=== PATIENT | female | born 1950 | race Caucasian/White ===

== ENCOUNTER → 2017-08-24 11:50 | Outpatient (CLI) | payer MEDICARE, MEDICAID, SELFPAY ==
--- NOTE | 2017-08-24 11:56 | RAD_ITS ---
STUDY: X-RAY - PELVIS AND RIGHT HIP REASON FOR EXAM: Female, 66 years old. Right hip pain. TECHNIQUE: Radiological exam, hip, unilateral, with pelvis when performed; 2 or 3 views. COMPARISON: None. FINDINGS: There is a non-specific bowel gas pattern. 2 round small calcifications are seen in the right mid abdomen. These may represent a calcified mesenteric lymph nodes. Normal bilateral iliac wings, sacroiliac joints and visualized sacrum. Normal bilateral superior and inferior pubic rami. Normal pubic symphysis. Normal bilateral ischial tuberosities. Normal visualized femoral head. Normal acetabulum. Normal hip joint. RAD/Hip 2-3 Views with Pelvis IMPRESSION: Normal x-ray examination of the pelvis and hip. Electronically Signed: Amor Luevano MD at 15:59 EST Tel [phone], Service support ,
== END ==
PROVIDERS: Family Provider Family Medicine; PCP Family Medicine; Visit Provider Anesthesiology Pain Medicine
DX: M25.559 Pain in unspecified hip (principal)
CPT/HCPCS: 73502

== ENCOUNTER → 2017-10-03 14:19 | Outpatient (CLI) | payer MEDICARE, MEDICAID, SELFPAY ==
[2017-10-03 16:41] LABS: ALB/GLOB Ratio 0.9 RATIO (0.9-2.4); AST(SGOT) 35 U/L (15-37); Alanine Aminotransfer ALT/SGPT 32 U/L (13-56); Albumin, Serum 3.5 g/dL (3.2-5.0); Alkaline Phosphatase 133 U/L (45-117); Anion Gap 8 (5-15); BUN 10 mg/dL (7-18); BUN/Creat Ratio 10.7 RATIO (10-20); Calcium,Total 9.3 mg/dL (8.5-10.1); Chloride 106 mmol/L (98-107); Cholesterol 226 mg/dL (200); Creatinine, Serum 0.93 mg/dL (0.55-1.02); EST Glomerular Filtration Rate 63 mL/min (>60); Est Glom Filt Rate - Afr Amer 77 mL/min (>60); Glucose 89 mg/dL (74-106); High Density Lipoprotein 44 mg/dL; Potassium 4.3 mmol/L (3.5-5.1); Protein, Total 7.5 g/dL (6.4-8.2); Sodium Level 142 mmol/L (136-145); Thyroid Stim Hormone (TSH) 0.69 uIU/mL (0.358-3.74); Triglycerides 178 mg/dL; Very Low Density Lipoprotein 36 mg/dL (5-40)
== END ==
PROVIDERS: Family Provider Family Medicine; PCP Family Medicine; Visit Provider Family Medicine
DX: E03.9 Hypothyroidism, unspecified (principal); E11.9 Type 2 diabetes mellitus without complications; R79.89 Other specified abnormal findings of blood chemistry
CPT/HCPCS: 36415; 80053; 80061; 84443

== ENCOUNTER → 2017-10-31 07:02 | Outpatient (CLI) | payer MEDICARE, MEDICAID, SELFPAY ==
--- NOTE | 2017-10-31 07:09 | MRI_ITS ---
STUDY: MRI RIGHT HIP REASON FOR EXAM: Female, 66 years old. Right-sided hip pain for 3 months. TECHNIQUE: Standardized fat and water weighted pulse sequences were obtained in all 3 orthogonal planes. COMPARISON: None. FINDINGS: There is mild articular narrowing of the hip joint, with less than 50% loss of the hyaline cartilage. There is lateral osteoarthritic spurring of the acetabular rim. There is abnormal signal within the right acetabulum. Normal labrum. There is a confluent abnormal T2 hyperintensity within the right femoral head that may be the result of bone contusion or acute inflammation. There are multifocal areas of abnormal signal in the right femoral neck and proximal right femur. These focal areas of abnormal signal range in size from 3 mm to 15 mm in size. These have abnormal T2 hyperintensity and abnormally decreased T1 signal. There is a small hip effusion. There is a well-circumscribed area of abnormal signal in the subarticular aspect of the superior right femoral head that suggests either sequela of an erosion or avascular necrosis. Normal gluteus minimus, medius and iliopsoas tendons and distal insertions. There is no trochanteric, iliopsoas or iliopectineal bursitis. Normal superior and inferior pubic rami. Normal pubic symphysis. Normal ischial tuberosity. Normal origin of the hamstring tendons. Normal visualized iliac wing, sacroiliac joint, and sacral ala. There are mild degenerative changes of the left hip. There is a right-sided abdominal ovarian cyst measuring 3.3 cm in greatest dimension. The uterus has a grossly normal appearance. MRI/Lower Ext Joint Only (Routine) IMPRESSION: Multifocal areas of abnormal signal within the right acetabulum and femoral head. Differential considerations include sequela of avascular necrosis of the femoral head, bone contusions of the acetabulum and femur, as well as sequela of chronic osteomyelitis. Electronically Signed: Abril Pichardo MD at 8:50 EDT , Service support ,
== END ==
PROVIDERS: Family Provider Family Medicine; PCP Family Medicine; Visit Provider Family Medicine
DX: M25.551 Pain in right hip (principal)
CPT/HCPCS: 73721

== ENCOUNTER → 2017-11-01 16:32 | Outpatient (CLI) | payer MEDICARE, MEDICAID, SELFPAY ==
[2017-11-01 17:52] LABS: Absolute Lymphocyte Count 3.86 X10^3/ul (0.83-4.51); Absolute Neutrophil Count 6.1 X10^3/uL (2.0-7.7); Basophil# 0.02 X10^3/uL; Basophil% 0.2 % (0-1); Eosinophil# 0.09 X10^3/uL; Eosinophils% 0.8 % (0-5); Hemoglobin 12.2 g/dl (12.0-15.0); Lymphocyte # 3.86 X10^3/ul (4.0); Lymphocyte % 35.6 % (19-41); Mean Corp Hgb Conc 31.3 g/gl (32-36); Mean Corpuscular Hgb 28.2 pg (27.0-32.0); Mean Corpuscular Volume 90.1 fL (81-99); Mean Platelet Vol. 11.1 fl (6.2-12.0); Monocyte# 0.74 X10^3/uL; Monocyte% 6.8 % (0-10); Neutrophil % 56.3 % (47-70); Platelet Count 247 K/mm3 (150-450); RBC Distribution Width CV 15.8 % (11.6-14.6); RBC Distribution Width SD 51.9 fl (35.1-43.9); Red Blood Count 4.33 M/mm3 (4.2-5.4); White Blood Count 10.8 K/mm3 (4.4-11.0)
[2017-11-01 18:00] LABS: POSITIVE COUNT NO; POSITIVE DIFFERENTIAL NO; POSITIVE MORPHOLOGY NO
[2017-11-01 18:04] LABS: CRP 5.96 mg/L (0.0-3.0)
[2017-11-01 18:17] LABS: Erythrocyte Sedimentation Rate 28 mm/hr (0-30)
== END ==
PROVIDERS: Family Provider Family Medicine; PCP Family Medicine; Visit Provider Family Medicine
DX: M25.551 Pain in right hip (principal)
CPT/HCPCS: 36415; 85025; 85652; 86140

== ENCOUNTER 2017-11-27 05:19 | Inpatient (IN) | payer MEDICARE, MEDICAID, SELFPAY ==
--- NOTE | 2017-11-14 12:45 | EKG12_ITS ---
Test Reason : Blood Pressure : / mmHG Vent. Rate : 087 BPM Atrial Rate : 087 BPM P-R Int : 156 ms QRS Dur : 082 ms QT Int : 358 ms P-R-T Axes : 038 015 027 degrees QTc Int : 430 ms Normal sinus rhythm Minimal voltage criteria for LVH, may be normal variant Borderline ECG Confirmed by TUCKER JAUREGUI, ISAC ([id number]), fan mail editor PARKER DRAPER ([id number]) on 11/15/2017 2:00:32 PM Referred By: Damien Clarke Confirmed By:ISAC CEBALLOS MD
[2017-11-14 13:18] VITALS: BP 151/99; PULSE 92; RESP 18; TEMP 36.4; O2SAT 96; BMI 34.2
[2017-11-14 14:18] LABS: Prothrombin Time (Protime)PT. 13.1 SECONDS (11.7-14.9)
[2017-11-14 14:19] LABS: Partial Thromboplast Time 28.9 Seconds (24.1-36.2)
[2017-11-14 14:23] LABS: Hemoglobin A1c 6.2 % (4.2-6.3)
[2017-11-14 14:33] LABS: AST(SGOT) 28 U/L (15-37); Alanine Aminotransfer ALT/SGPT 27 U/L (13-56); Albumin, Serum 3.6 g/dL (3.2-5.0); Alkaline Phosphatase 123 U/L (45-117); Globulin 3.8 g/dL (2.2-4.2); Protein, Total 7.4 g/dL (6.4-8.2)
--- NOTE | 2017-11-24 10:06 | CASEMGMT ---
RN SMITH Preop Call. Introduced role of CM via phone. Pt scheduled for RTHR 11/27/17. DC planning needs assessment completed. DME available: walker, cane DME needs: sock don device Therapy on dc: [facility] Transportation: friend/family, hospital van when able to tolerate activity. RN CM will f/u with pt after surgery and will assist with any dc needs. Florentino NEVILLE RN ACM
[2017-11-27] VITALS (15 sets, daily range): BP systolic 102–156; BP diastolic 54–101; PULSE 75–102; RESP 16–18; TEMP 36.1–37; O2SAT 95–100; BMI 34.2
[2017-11-27] MEDS: Acetaminophen 500 MG Tablet 1000 MG PO ×3 (06:03→21:49)
[2017-11-27] MEDS: Lactated Ringers 1,000 ML 999 ML IV (06:30)
[2017-11-27] MEDS: Cefazolin 2 GM in 0.9% Normal Saline 100 ML IV (07:17)
[2017-11-27 07:46] LABS: Bedside Glucose 114 mg/dL (70-110)
--- NOTE | 2017-11-27 08:29 | PCM.OPRPT ---
Report of Operation Date of Procedure: 11/27/17 Pre-Operative Diagnosis: Severe end-stage osteoarthritis right hip Post-Operative Diagnosis: Severe end-stage osteoarthritis right hip Surgery/Procedure Performed:: Total hip arthroplasty right Description of Surgical Findings:: Eburnation of bone, periarticular osteophytes consistent with osteoarthritis steel buffer: Magdy Burnett Type of Anesthesia:: Spinal Anesthesiologist: Brian Lau Special Medications: txa Estimated Blood Loss (mL): 150 Fluids Replaced: See anesthesia report Description of Procedure: Implants: Nabeel Accolade 2 size 3 132?, 50 mm MDM cup with the appropriate size modular components Surgical indications: Patient has severe end-stage osteoarthritic changes in the right hip. They have failed conservative measures including activity modification, anti-inflammatories, use of assistive devices. This to the point where the pain affects their ability to enjoy life and complete activities of daily living without discomfort. Patient has elected to undergo the above procedure Procedure description: The patient was greeted in the preoperative area the right hip was marked with surgical marker preoperative antibiotics administered. The patient was then taken to or suite in stable condition. Preoperative tranexamic acid was also utilized. Once the patient was placed in the supine position on the operating room table and once adequate anesthesia was obtained they were then placed in the lateral decubitus position with the surgical hip facing the field. All bony prominences were well-padded. A commercial hip position was utilized. The appropriate extremity was then prepped and draped in usual sterile fashion. Ioban was placed on the skin. Surgical timeout was performed and surgery was commenced. Standard anterolateral approach to the hip was then performed incision was planned and carried out with a #10 blade. Dissection was then carried length of the incision to the IT band which was split proximally and distally. A Charnley retractor was then placed for soft tissue retraction exposing the gluteus medius. The hip was then approached through a transgluteal approach and dislocated through an anterior capsulectomy. Severe eburnation of bone was noted periarticular osteophytes were identified consistent with severe end-stage osteoarthritis. A femoral osteotomy was then created approximately 1 fingerbreadth above the lesser trochanter. This was measured and placed on the back table. Once this was complete acetabular retractors were placed anteriorly and posteriorly and a 4 mm Steinmann pin was placed anterior superior aspect of the acetabulum for soft tissue retention. Labrum was then removed from the acetabulum exposing the entire cup of the acetabulum. Sequential reaming was then commenced and the acetabulum was medialized and sequentially widened in order to accommodate appropriate size cup. The acetabular cup was then impacted into position to the appropriate depth referencing approximately 30? inversion 45? of inclination. Excellent purchase was obtained. 2 screws were placed in the cup. MDM metal modular liner was then placed in the locking mechanism of the acetabulum, locking mechanism was engaged and confirmed to be locked. Attention was then turned to the femoral preparation. The hip was placed in the 90/90 position and a lateralizing box osteotome was utilized. Femoral starting awl was used followed by sequential broaching to the appropriate size. Excellent purchase was obtained with the stem no stem subsidence and excellent rotational stability was confirmed. A calcar reamer was then used in the trial head neck was placed on the broach. The hip was then located and taken through full range of motion flexion internal and external rotation as well as extension. Excellent stability was noted no impingement was identified of the components and leg lengths appear to be appropriate. The hip was at this point dislocated and the trial femoral components were removed. The final femoral stem was then implanted and impacted to the appropriate depth. Again excellent purchase was obtained no stem subsidence or rotational instability was noted. The hip was once again trialed and confirmation of leg length and stability was performed. Soft tissue tension also appeared to be appropriate. At this point the hip was redislocated and the trunnion was cleaned and dried meticulously in the appropriate size femoral head was placed on the clean dry trunnion using a 12/14 Proctor taper. The hip was once again relocated and again taken through full range of motion. I did inject a cocktail of postoperative pain medication in the deep and superficial tissues. A quick Betadine bath was performed followed by copious irrigation. Anatomic closure of the gluteus medius and minimus was performed with #1 Vicryl [id number] type fashion followed by closure of the IT band with #1 Vicryl 0 Vicryl was utilized in subcutaneous tissue and surgical carol were placed in the skin. A well-padded nonadherent dressing was applied. Patient was taken to PACU in stable condition. No complications were identified. Will follow standard postop protocol for total hip arthroplasty. Patient must use assistive device for ambulation for approximately 6 weeks of the gluteal musculature heals. Physician assistant public defender was integral in all portions of this procedure. They assisted with positioning the patient, draping the extremity, holding retractors, closing the wound, and applying the dressing. This was all done under my direct supervision. The physician assistant public defender was essential for a successful, efficient surgery. - Complications None known - Admit VTE Documentation VTE Present on Admission: Yes VTE Mechan Device Prophylaxis: Thigh High LAWANDA Hose VTE Pharm Prophylaxis ordered?: Yes
--- NOTE | 2017-11-27 08:32 | OP.PCM_ITS ---
Report of Operation Date of Procedure: 11/27/17 Pre-Operative Diagnosis: Severe end-stage osteoarthritis right hip Post-Operative Diagnosis: Severe end-stage osteoarthritis right hip Surgery/Procedure Performed:: Total hip arthroplasty right Description of Surgical Findings:: Eburnation of bone, periarticular osteophytes consistent with osteoarthritis computer systems security administrator: Magdy Burnett Type of Anesthesia:: Spinal Anesthesiologist: Brian Lau Special Medications: txa Estimated Blood Loss (mL): 150 Fluids Replaced: See anesthesia report Description of Procedure: Implants: Nabeel Accolade 2 size 3 132?, 50 mm MDM cup with the appropriate size modular components Surgical indications: Patient has severe end-stage osteoarthritic changes in the right hip. They have failed conservative measures including activity modification, anti-inflammatories, use of assistive devices. This to the point where the pain affects their ability to enjoy life and complete activities of daily living without discomfort. Patient has elected to undergo the above procedure Procedure description: The patient was greeted in the preoperative area the right hip was marked with surgical marker preoperative antibiotics administered. The patient was then taken to or suite in stable condition. Preoperative tranexamic acid was also utilized. Once the patient was placed in the supine position on the operating room table and once adequate anesthesia was obtained they were then placed in the lateral decubitus position with the surgical hip facing the field. All bony prominences were well-padded. A commercial hip position was utilized. The appropriate extremity was then prepped and draped in usual sterile fashion. Ioban was placed on the skin. Surgical timeout was performed and surgery was commenced. Standard anterolateral approach to the hip was then performed incision was planned and carried out with a #10 blade. Dissection was then carried length of the incision to the IT band which was split proximally and distally. A Charnley retractor was then placed for soft tissue retraction exposing the gluteus medius. The hip was then approached through a transgluteal approach and dislocated through an anterior capsulectomy. Severe eburnation of bone was noted periarticular osteophytes were identified consistent with severe end- stage osteoarthritis. A femoral osteotomy was then created approximately 1 fingerbreadth above the lesser trochanter. This was measured and placed on the back table. Once this was complete acetabular retractors were placed anteriorly and posteriorly and a 4 mm Steinmann pin was placed anterior superior aspect of the acetabulum for soft tissue retention. Labrum was then removed from the acetabulum exposing the entire cup of the acetabulum. Sequential reaming was then commenced and the acetabulum was medialized and sequentially widened in order to accommodate appropriate size cup. The acetabular cup was then impacted into position to the appropriate depth referencing approximately 30? inversion 45? of inclination. Excellent purchase was obtained. 2 screws were placed in the cup. MDM metal modular liner was then placed in the locking mechanism of the acetabulum, locking mechanism was engaged and confirmed to be locked. Attention was then turned to the femoral preparation. The hip was placed in the 90/90 position and a lateralizing box osteotome was utilized. Femoral starting awl was used followed by sequential broaching to the appropriate size. Excellent purchase was obtained with the stem no stem subsidence and excellent rotational stability was confirmed. A calcar reamer was then used in the trial head neck was placed on the broach. The hip was then located and taken through full range of motion flexion internal and external rotation as well as extension. Excellent stability was noted no impingement was identified of the components and leg lengths appear to be appropriate. The hip was at this point dislocated and the trial femoral components were removed. The final femoral stem was then implanted and impacted to the appropriate depth. Again excellent purchase was obtained no stem subsidence or rotational instability was noted. The hip was once again trialed and confirmation of leg length and stability was performed. Soft tissue tension also appeared to be appropriate. At this point the hip was redislocated and the trunnion was cleaned and dried meticulously in the appropriate size femoral head was placed on the clean dry trunnion using a 12/14 Proctor taper. The hip was once again relocated and again taken through full range of motion. I did inject a cocktail of postoperative pain medication in the deep and superficial tissues. A quick Betadine bath was performed followed by copious irrigation. Anatomic closure of the gluteus medius and minimus was performed with #1 Vicryl [id number] type fashion followed by closure of the IT band with #1 Vicryl 0 Vicryl was utilized in subcutaneous tissue and surgical carol were placed in the skin. A well- padded nonadherent dressing was applied. Patient was taken to PACU in stable condition. No complications were identified. Will follow standard postop protocol for total hip arthroplasty. Patient must use assistive device for ambulation for approximately 6 weeks of the gluteal musculature heals. Physician service assistant was integral in all portions of this procedure. They assisted with positioning the patient, draping the extremity, holding retractors , closing the wound, and applying the dressing. This was all done under my direct supervision. The physician service assistant was essential for a successful, efficient surgery. - Complications None known - Admit VTE Documentation VTE Present on Admission: Yes VTE Mechan Device Prophylaxis: Thigh High LAWANDA Hose VTE Pharm Prophylaxis ordered?: Yes
--- NOTE | 2017-11-27 09:25 | RAD_ITS ---
STUDY: X-RAY - PELVIS AND RIGHT HIP REASON FOR EXAM: Female, 67 years old. Total hip replacement. TECHNIQUE: Radiological exam, hip, unilateral, with pelvis when performed; 2 or 3 views. COMPARISON: None. FINDINGS: The patient is status post total right hip replacement. There is good alignment. Postoperative soft tissue changes. RAD/Hip Min 2 Views (Portable) IMPRESSION: Status post total hip replacement. There is good alignment. Postoperative soft tissue changes. Electronically Signed: Amor Luevano MD at 10:33 EDT Tel [phone], Service support ,
--- NOTE | 2017-11-27 09:36 | EKG12_ITS ---
Test Reason : CHEST PAIN-POSTOP Blood Pressure : / mmHG Vent. Rate : 091 BPM Atrial Rate : 091 BPM P-R Int : 206 ms QRS Dur : 072 ms QT Int : 394 ms P-R-T Axes : 061 029 022 degrees QTc Int : 484 ms Normal sinus rhythm Normal ECG Confirmed by TUCKER JAUREGUI, ISAC ([id number]), commissioning editor PARKER DRAPER ([id number]) on 12/06/2017 3:28:53 PM Referred By: Damien Clarke Confirmed By:ISAC CEBALLOS MD
--- NOTE | 2017-11-27 09:37 | SUR.PHASEI ---
pt c/o chest heaviness on left side. denies numbness or tingling to either arm. Dr thompson notified, ekg ordered.
[2017-11-27] MEDS: Morphine 4 MG/ML Syringe IV (11:55)
[2017-11-27] MEDS: Ondansetron 4 MG/2 ML Vial IV (14:18)
[2017-11-27] MEDS: Lactated Ringers 1,000 ML 125 ML IV (14:20)
[2017-11-27] MEDS: morphine SR 15 MG Tablet PO ×2 (14:21→21:47)
[2017-11-27] MEDS: tiZANidine HCl 2 MG Tablet 4 MG PO (14:21)
[2017-11-27] MEDS: Ferrous Sulfate 325 MG Tablet PO (14:21)
[2017-11-27] MEDS: Cefazolin 1 GM/50 ML BAG IV ×2 (15:16→23:47)
[2017-11-27] MEDS: proMETHazine 25 MG/ML Syringe 12.5 MG IM (16:59)
[2017-11-27] MEDS: Ketorolac 15 MG/ML Vial IV ×2 (17:00→23:50)
[2017-11-27] MEDS: Aspirin 325 MG Tablet PO (17:11)
[2017-11-27] MEDS: Amitriptyline 25 MG Tablet PO (21:49)
[2017-11-28 03:19] VITALS: BP 150/70; PULSE 99; RESP 16; TEMP 37.1; O2SAT 100
[2017-11-28] MEDS: oxyCODONE 5 MG Tablet PO ×3 (03:49→16:52)
[2017-11-28] MEDS: Levothyroxine 75 MCG Tablet PO (05:46)
[2017-11-28] MEDS: Acetaminophen 500 MG Tablet 1000 MG PO ×3 (05:46→21:11)
[2017-11-28] MEDS: Aspirin 325 MG Tablet PO ×2 (05:47→16:48)
[2017-11-28] MEDS: Ferrous Sulfate 325 MG Tablet PO (05:48)
[2017-11-28 06:32] LABS: Hematocrit 34.1 % (37-47); Hemoglobin 10.8 g/dl (12.0-15.0); Mean Corp Hgb Conc 31.7 g/gl (32-36); Mean Corpuscular Hgb 28.3 pg (27.0-32.0); Mean Corpuscular Volume 89.3 fL (81-99); Mean Platelet Vol. 11.3 fl (6.2-12.0); Platelet Count 159 K/mm3 (150-450); RBC Distribution Width CV 15.2 % (11.6-14.6); RBC Distribution Width SD 49.4 fl (35.1-43.9); Red Blood Count 3.82 M/mm3 (4.2-5.4); White Blood Count 7.5 K/mm3 (4.4-11.0)
[2017-11-28 06:40] LABS: Scan Indicated on CBC? Y/N NO
[2017-11-28 06:58] LABS: Anion Gap 8 (5-15); BUN 9 mg/dL (7-18); BUN/Creat Ratio 10.5 RATIO (10-20); Calcium,Total 8.7 mg/dL (8.5-10.1); Chloride 105 mmol/L (98-107); Creatinine, Serum 0.85 mg/dL (0.55-1.02); EST Glomerular Filtration Rate 70 mL/min (>60); Est Glom Filt Rate - Afr Amer 85 mL/min (>60); Estimated Creatinine Clearance 51.67 ml/min; Glucose 108 mg/dL (74-106); Potassium 3.9 mmol/L (3.5-5.1); Sodium Level 142 mmol/L (136-145)
--- NOTE | 2017-11-28 07:22 | PCM.PN.ORT ---
Subjective: Patient sitting at bedside. Pain well managed. Denies chest pain, shortness breath, calf pain, nausea vomiting. No other complaints. Objective: Dressings clean dry intact. Negative signs and symptoms of DVT. Patient's vital signs labs are within normal limits. Patient is afebrile neurovascular is otherwise intact - Physical Exam General: Alert, Oriented x3, Cooperative HEENT: PERRLA Oral: Moist Mucosa Neurological: Cranial nerves II-XII grossly intact Psych/Mental Status: Normal Affect, Alert and oriented to time, place, person, mood and affect Vital Signs Temp Pulse Resp BP Pulse Ox 98.7 F 99 16 150/70 H 100 11/28/17 03:19 11/28/17 03:19 11/28/17 03:19 11/28/17 03:19 11/28/17 03:19 Oxygen Delivery Method Room Air Weight: 87.6 kg Body Mass Index (BMI) 34.2 Intake and Output for Last 24 Hours 11/26/17 11/27/17 11/28/17 23:59 23:59 23:59 Intake Total 3647 / 3647 Output Total 200 / 200 Balance 3447 / 3447 Laboratory Tests Past 24 Hrs 11/28/17 11/28/17 05:50 05:50 WBC 7.5 RBC 3.82 L Hgb 10.8 L Hct 34.1 L MCV 89.3 MCH 28.3 MCHC 31.7 L RDW 15.2 H RDW Differential 49.4 H Plt Count 159 MPV 11.3 Sodium 142 Potassium 3.9 Chloride 105 Carbon Dioxide 29.0 Anion Gap 8 BUN 9 Creatinine 0.85 Estim Creat Clear Calc 51.67 Est GFR (MDRD) Af Amer 85 Est GFR (MDRD) Non-Af 70 BUN/Creatinine Ratio 10.5 Glucose 108 H Calcium 8.7 POC Glucose 11/27/17 05:59 POC Glucose 114 H Medical Necessity - Tobacco Use Smoking Status: Never smoker Assessment/Plan Status post right total hip Plan 1. Continue all pain medications as prescribed 2. Begin physical therapy today, weight-bear as tolerated, with walker 3. Aspirin 325 mg 1 p.o. every 12 hours ?30 days for postop DVT prophylaxis 4. Encourage incentive spirometry 5. Probable discharge home tomorrow
[2017-11-28 07:36] VITALS: BP 137/65; PULSE 108; RESP 18; TEMP 37.6; O2SAT 95
--- NOTE | 2017-11-28 09:08 | PCA ---
THERAPY WORKING WITH PT
[2017-11-28] MEDS: morphine SR 15 MG Tablet PO ×2 (09:26→21:10)
[2017-11-28] MEDS: tiZANidine HCl 2 MG Tablet 4 MG PO (09:26)
[2017-11-28] MEDS: Pantoprazole Sodium 40 MG Tablet PO (09:26)
[2017-11-28] MEDS: 0.9% NaCl Peripheral Flush Adult/Peds IV (11:46)
[2017-11-28] MEDS: Ondansetron 4 MG/2 ML Vial IV (11:46)
--- NOTE | 2017-11-28 11:55 | CASEMGMT ---
ALISSA MZT Face to Face with patient for initial transition planning/care coordination assessment. ALISSA MTZ introduced self and role at [facility] [place]. Patient sitting in chair, alert and oriented. Patient willing to participate in assessment and is able to answer all questions appropriately. Care providers, pharmacy, and demographics verified. Patient states she lives alone and concerned about transportation. Pt wishes to discharge home and discussed possibly setting up HHC and then transitioning to outpatient therapy. Patient agreealbe to home with HHC. ALISSA MTZ updated ARIES Solo regarding home with C and stated he preferred if patient went to inpatient rehab. ALISSA MTZ discussed with patient going to inpatient rehab, patient agreeable. ALISSA MTZ sent referral to [facility] at inpatient rehab and they are able to accept the patient. ALISSA MTZ updated the patient. Patient states she has no further needs or concerns at this time. CM to follow for discharge planning needs that may arise. Disposition Plan: Inpatient rehab
[2017-11-28 12:58] VITALS: BP 125/66; PULSE 91; RESP 18; TEMP 37.1; O2SAT 97
--- NOTE | 2017-11-28 14:21 | PCA ---
pt in therapy
[2017-11-28 16:45] VITALS: BP 125/62; PULSE 81; RESP 18; TEMP 37.2; O2SAT 100
[2017-11-28 20:59] VITALS: BP 131/66; PULSE 97; RESP 18; TEMP 36.9; O2SAT 98
[2017-11-28] MEDS: Amitriptyline 25 MG Tablet PO (21:11)
[2017-11-29] VITALS (8 sets, daily range): BP systolic 85–131; BP diastolic 47–65; PULSE 80–111; RESP 16–18; TEMP 36.5–36.8; O2SAT 93–99
[2017-11-29] MEDS: oxyCODONE 5 MG Tablet PO (05:27)
[2017-11-29] MEDS: Acetaminophen 500 MG Tablet 1000 MG PO ×2 (05:28→13:27)
[2017-11-29] MEDS: Levothyroxine 75 MCG Tablet PO (05:28)
[2017-11-29 05:48] LABS: Hematocrit 32.7 % (37-47); Hemoglobin 10.6 g/dl (12.0-15.0); Mean Corp Hgb Conc 32.4 g/gl (32-36); Mean Corpuscular Hgb 29.4 pg (27.0-32.0); Mean Corpuscular Volume 90.6 fL (81-99); Mean Platelet Vol. 11.6 fl (6.2-12.0); Platelet Count 156 K/mm3 (150-450); RBC Distribution Width CV 14.9 % (11.6-14.6); RBC Distribution Width SD 48.2 fl (35.1-43.9); Red Blood Count 3.61 M/mm3 (4.2-5.4); White Blood Count 8.1 K/mm3 (4.4-11.0)
[2017-11-29] MEDS: 0.9% NaCl Peripheral Flush Adult/Peds IV ×3 (05:58→11:02)
[2017-11-29 06:06] LABS: Scan Indicated on CBC? Y/N NO
[2017-11-29] MEDS: Ketorolac 15 MG/ML Vial IV (08:17)
[2017-11-29] MEDS: Pantoprazole Sodium 40 MG Tablet PO (08:18)
[2017-11-29] MEDS: tiZANidine HCl 2 MG Tablet 4 MG PO (08:18)
[2017-11-29] MEDS: Aspirin 325 MG Tablet PO (08:18)
[2017-11-29] MEDS: Ferrous Sulfate 325 MG Tablet PO (08:18)
[2017-11-29] MEDS: Ondansetron 4 MG/2 ML Vial IV (11:02)
[2017-11-29 11:36] LABS: Bedside Glucose 122 mg/dL (70-110)
[2017-11-29] MEDS: Lactated Ringers 500 ML 999 ML IV (12:08)
--- NOTE | 2017-11-29 12:28 | PCM.PN.ORT ---
Subjective: Patient lying in bed. Patient states while she was attempting to have a bowel movement at bedside commode she developed lightheadedness and felt like she was going to pass out. Patient denies chest pain shortness of breath. Patient states she has had nausea. Denies headaches or blurred vision. Patient feels it is the pain medication that caused the symptoms, which she has had the past. Objective: Upon entering the room, I found the patient lying in bed. Alert oriented. Patient in no respiratory distress. Range of motion of the upper extremities patient is good flexion-extension of bilateral knees no calf tenderness, negative signs and symptoms of DVT. Clean dry intact at time of onset of symptoms patient was hypotensive, at this time she is normotensive. Patient is receiving a 1 L bolus of lactated Ringer's. - Physical Exam General: Alert, Oriented x3, Cooperative HEENT: PERRLA Oral: Moist Mucosa Neurological: Cranial nerves II-XII grossly intact Psych/Mental Status: Normal Affect, Alert and oriented to time, place, person, mood and affect Vital Signs Temp Pulse Resp BP Pulse Ox 97.7 F L 88 18 113/52 L 94 11/29/17 11:16 11/29/17 12:00 11/29/17 11:16 11/29/17 12:00 11/29/17 11:16 Oxygen Delivery Method Room Air Weight: 87.6 kg Body Mass Index (BMI) 34.2 Intake and Output for Last 24 Hours 11/27/17 11/28/17 11/29/17 23:59 23:59 23:59 Intake Total 3647 / 3647 780 / 780 1100 / 1100 Output Total 200 / 200 150 / 150 100 / 100 Balance 3447 / 3447 630 / 630 1000 / 1000 Laboratory Tests Past 24 Hrs 11/29/17 05:24 WBC 8.1 RBC 3.61 L Hgb 10.6 L Hct 32.7 L MCV 90.6 MCH 29.4 MCHC 32.4 RDW 14.9 H RDW Differential 48.2 H Plt Count 156 MPV 11.6 POC Glucose 11/29/17 11:07 POC Glucose 122 H Medical Necessity - Tobacco Use Smoking Status: Never smoker Assessment/Plan Status post right total hip Hypotension, vasovagal versus pain medication postural hypotension. Plan 1. Discontinue all pain medications. Will begin Ultram 50 mg 1 or 2 every 6 hours as needed severe pain, Tylenol 1 g q. 8 scheduled 2. Physical therapy at [facility] fourth floor rehab, weight-bear as tolerated, with walker 3. Aspirin 325 mg 1 p.o. every 12 hours ?30 days for postop DVT prophylaxis 4. Encourage incentive spirometry 5. Repeat orthostatic vitals post 1 L bolus. 6. Discharge today to [facility] fourth floor rehab 7. Follow-up as scheduled, see pink sheet 8. Shower 11/30/2017 9. Staple removal 12/08/2017 10. Change dressing at discharge to AG dressing, dressing to remain in place until staple removal, 12/08/2017
--- NOTE | 2017-11-29 12:46 | PCM.DC.THR ---
Discharge Diet: No Restrictions Discharge Activity: May Not Drive, May Shower, Use Walker May shower in (days): 2 - only if incision is dry and without drainage. Do NOT soak/submerge in tub/pool/cai/stream/hot tub. May resume sexual activity in: No Restrictions Ice area for (Minutes): 20 - every hour while awake Weight Bearing Status: Weight bearing as tolerated Lifting Restrictions: 20 pounds Elevate: Operative Extremity Call your doctor if your incision/area has: Continuous Slow Oozing, Sudden Increased Bleeding, Increased Pain/ Swelling, Increased Redness, Foul Smelling Discharge Call your doctor if you observe: Fever of 101 or Higher, Inability to urinate, Inability to have a bowel movement, Shortness of breath, Fainting spells, Chest pain, Increased palpitations (irregular heartbeat), Calf discomfort, Uncontrolled pain Change Dressing in (Days):: 0 - Change daily and as needed. Remove Dressing in (days):: 9 - remove dressing when carol removed 12-08-2017 Cleanse incision/area with: Soap & Water Allergies/Adverse Reactions: Allergies codeine Adverse Reaction (Verified 11/14/17 12:57) Upset Stomach bee sting Adverse Reaction (Uncoded 11/14/17 12:57) Anaphylaxis Medications to take at Discharge Amitriptyline HCl [Elavil] 25 mg PO QHS 10/10/13 Tizanidine HCl [Zanaflex] 4 mg PO DAILY 10/10/13 Zolpidem Tartrate [Ambien Cr] 10 mg PO QHS PRN PRN 10/10/13 Calcium Carbonate/Vitamin D3 [Calcium 600-Vit D3 400 Tablet] 1 each PO DAILY 10/29/13 Omeprazole 1 tab PO DAILY 10/29/13 Metformin HCl [Glucophage] 500 mg PO DAILY 10/26/15 Ferrous Sulfate [Iron] 325 mg PO DAILY 11/14/17 L.acidoph,Paracasei, B.lactis [Probiotic] 1 each PO DAILY 11/14/17 Levothyroxine [Synthroid] 75 mcg PO DAILY 11/14/17 Lidocaine [Lidoderm Patch] 1 patch TOPICAL DAILY 11/14/17 Acetaminophen [Tylenol] 1,000 mg PO Q8 #90 tab 11/29/17 Aspirin 325 mg PO BIDCM #60 tab 11/29/17 traMADol [Ultram] 50 mg PO Q6H PRN PRN 7 Days #60 tab 11/29/17 The following prescriptions were given: traMADol [Ultram] 50 mg PO Q6H PRN PRN 7 Days #60 tab PRN Reason: Moderate Pain (4-5/10) Acetaminophen [Tylenol] 1,000 mg PO Q8 #90 tab Aspirin 325 mg PO BIDCM #60 tab Primary Care Physician: Keaton Berger MD [Primary Care Provider] - Please Follow Up With: Magdy Burnett PA-C When: as scheduled (see pink sheet)
--- NOTE | 2017-11-29 13:55 | CASEMGMT ---
Social Work Pt ready to be discharge to the inpatient rehab unit today. SW spoke with [facility] in and they are able to accept. SW met with pt and she is agreeable to transfer to today. Pt states she will notify family of transfer and no need for SW to call. Nursing notified that pt is ready for d/c and can arrange for transfer. Plan: [facility] inpatient rehabilitation FELIX Lugo
--- NOTE | 2017-11-29 14:13 | NURSING ---
Report called to [facility] in Rehab, patient ready for transfer there.
== END 2017-11-29 14:24 | DRG 470 ==
PROVIDERS: Anesthesiology; Admitting Provider Orthopaedic Surgery; Family Provider Family Medicine; PCP Family Medicine; Visit Provider Orthopaedic Surgery
PROC: 0SR90JZ Replacement of Right Hip Joint with Synthetic Substitute, Open Approach (ICD-10-PCS; CPT 27130; principal; 2017-11-27 06:50)
DX: M16.11 Unilateral primary osteoarthritis, right hip (principal); M87.051 Idiopathic aseptic necrosis of right femur; D64.9 Anemia, unspecified; K21.9 Gastro-esophageal reflux disease without esophagitis; E11.9 Type 2 diabetes mellitus without complications; F32.9 Major depressive disorder, single episode, unspecified; M79.7 Fibromyalgia; E66.3 Overweight; Z68.34 Body mass index [BMI] 34.0-34.9, adult; Z85.038 Personal history of other malignant neoplasm of large intestine
CPT/HCPCS: 36415; 73502; 80048; 80076; 82962; 83036; 85027; 85610; 85730; 87081; 93005; 97110; 97116; 97162; 97165; 97530; 97535; C1713; C1776; J7120; A4216; J2405

== ENCOUNTER 2017-11-29 15:00 | Inpatient (IN) | payer MEDICARE, MEDICAID, SELFPAY ==
[2017-11-29 15:18] VITALS: BP 147/66; PULSE 93; RESP 18; TEMP 36.6; O2SAT 100; BMI 34.7
--- NOTE | 2017-11-29 16:08 | PCM.RU.PYE ---
Admission Information Status Changes from Prescreening?: No changes Identified Actual Problem List:: Pain, ALteration in Cmfrt, Mobility Impaired, Diabetes, Hyperglycemia Potential Problem List:: DVT, Bleeding, Infection, UTI, Aspiration, Falls, Skin Integrity, Depression Risk of Complications DVT: LMWH, LAWANDA Hose, Sequential Compression Device Bleeding: Monitor Lab Values, Nursing to Teach Precautions for anti-coagulation therapy., Wound, if applicable, to be assessed every shift., Stroke patients assessed for lethargy or change in status. Infection: Clinical Staff to Monitor for S/S of infection:, S/S of infection include fever, redness, warmth, etc. Urinary Tract Infection: Monitor for frequency, burning, discomfort, or incontinence., Nursing will obtain urine sample for urinalysis and C&S when ordered. Aspiration: Clinical staff will monitor for coughing, drooling, congestion., Speech will evaluate swallowing and dsyphasia., Nursing will monitor patient swallowing during meals. Falls: Patient will be evaluated for Fall Precautions, Patient will be placed on Fall Precautions as indicated per protocol. Skin Breakdown: Nursing will assess skin daily using assessment tool., Nursing will place on Skin Breakdown Precautions as indicated. Pain: Clinical staff will assess patient's pain level per protocol., Medications will be given, if needed, and the pain level reassessed., Other methods: Massage, distraction, decrease stimulus, etc. used PRN. Plan of Care Patient requires physician specializing in physical medicine and rehab oversight to provide close medical supervision of rehab issues including: Pain Management, Sleep Problems, Bowel and Bladder, Medical and co-morbidity Management, DVT prophylaxis, Rehabilitation Leadership, Coordination of treatment team Patient needs Physical Therapy: For a minimum of 1 hour, At least 5 out of 7 days Patient needs Physical Therapy to improve:: Mobility, Mobility, Mobility, Strengthening, Transfers, Stretching, ROM, Endurance, Stairs, Gait, Balance Patient needs Occupational Therapy: For a minimum of 1 hour, At least 5 out of 7 days Patient needs Occupational Therapy to improve ADL's incl.: Eating, Grooming, Bathing, Dressing, Toileting, Toilet transfers, Community Reintegration, Higher functioning activities, Household tasks, Adaptive Equipment, Splinting, Other activities as determined Patient requires 24/7 Rehabilitation Nursing for: Pain Issues, Identifying and preventing risk factors, Monitoring and reporting current medical conditions, Assisting with ambulation, transfer, and all ADL's, Teaching patients about disease process and medications, Family teaching, Providing safe environment, Bowel and Bladder Issues, Skin integrity, Medication Management Patient needs Maintenance Department Technician/ Case Management for: Discharge Planning, Arranging Home Equipment or Services, Family Interventions Patient needs Dietary and Nutrition Services for: Adequate Nutrition, Nutritional Supplements, Nutritional Education Goals Patient will remain: free from falls, or injury at time of discharge. Patient will perform bed mobility at: MOD I level of assist. Patient will complete transfers from bed to chair at: MOD I level of assist. Patient will ambulate: 100 feet, with MOD I assist, with LRD Patient will complete upper body dressing at: MOD I level of assist. Patient will complete lower body dressing at: MOD I level of assist. Patient will complete toileting at: MOD I level of assist. Patient will perform bathing at: MOD I level of assist. Patient will complete grooming at: MOD I level of assist. Patient will complete home management skills at: MOD I level of assist. Patient will achieve: 12 stairs, at MOD I assist Patient will have pain level of: of 3 or less Patient's skin will: remain intact, free from infection. Patient will receive: adequate nutrition. Discharge Planning Pt Prognosis for Sig. Practical Improv. w/in Reasonable Time: Good Estimated Length of stay (days): 14 Anticipated D/C Destination: Home Was Preadmission Assessment Accurate?: Yes
--- NOTE | 2017-11-29 16:12 | PCM.HP.COS ---
History of Present Illness Date of Admission: 11/29/17 Chief Complaint: Right Total Hip Replacement The patient is a 67 year old right handed female who was admitted to the rehab unit for rehabilitation after elective surgery for Right total hip replacement for gradual worsening of right hip arthropathy, on 11/27/[address] Damien Clarke, with out complications. She has a history of avascular necrosis of the hip, chronic pain 2/2 fibromyalgia and arachnoiditis, Diabetes type II, osteoarthritis, Hypothyroidism, colon cancer in remission since partial colectomy in 2013, hx of C-Diff and Morbid Obesity -> BMI 34.7 2/2 related health conditions of DM II, Osteoarthritis. She became hypotensive this morning, after doing physical therapy, and once she returned to her room, some of her narcotic pain medications were DCd, and she was given a Liter of LR, she is now normotensive, slightly on the high side, will continue to monitor. She also has some nausea and vomiting that she states may be from the narcotics as well. She has had poor PO intake the last few days from this. She lives alone in an apartment, has no steps just a curb area to get into the home. She was previously completely functionally independent, able to do all her own ADLs and was driving and is admitted to the rehab unit in order to restore her previous level of functional independence. Past Medical History Past Medical History (Chronic Problems): Chronic Problems Colon cancer (Chronic) Fibromyalgia (Chronic) Allergies codeine Adverse Reaction (Verified 11/14/17 12:57) Upset Stomach bee sting Adverse Reaction (Uncoded 11/14/17 12:57) Anaphylaxis Home Medications: Ambulatory Orders Medication Instructions Recorded Amitriptyline HCl [Elavil] 25 mg PO QHS 10/10/13 Tizanidine HCl [Zanaflex] 4 mg PO DAILY 10/10/13 Zolpidem Tartrate [Ambien Cr] 10 mg PO QHS PRN PRN 10/10/13 Calcium Carbonate/Vitamin D3 1 each PO DAILY 10/29/13 [Calcium 600-Vit D3 400 Tablet] Omeprazole 1 tab PO DAILY 10/29/13 Metformin HCl [Glucophage] 500 mg PO DAILY 10/26/15 Ferrous Sulfate [Iron] 325 mg PO DAILY 11/14/17 L.acidoph,Paracasei, B.lactis 1 each PO DAILY 11/14/17 [Probiotic] Levothyroxine [Synthroid] 75 mcg PO DAILY 11/14/17 Lidocaine [Lidoderm Patch] 1 patch TOPICAL DAILY 11/14/17 Aspirin 325 mg PO BIDCM 11/29/17 traMADol [Ultram] 50 mg PO Q6H PRN PRN 7 Days #60 tab 11/29/17 Surgical History: - - partial colectomy in 2014 Psychiatric History: No pertinent psych hx DEPARTMENT MGR History: No pertinent DEPARTMENT MGR history Lives: Alone Smoking Status: Never smoker Alcohol: None Drugs: None Review of Systems Constitutional: Denies: Chills, Fever, Weight Change HEENT: Denies: Head Aches, Sinus Congestion, Sinus Drainage Cardiovascular: Denies: Chest Pain, Palpitations Respiratory: Denies: Cough, Shortness of breath at rest, Sputum production Gastrointestinal: Denies: Abdominal Pain, Nausea, Vomiting Genitourinary: Denies: Dysuria Musculoskeletal: Denies: Joint Pain, Joint Tenderness Skin: Denies: Rash, Wounds Neurological: Denies: Numbness, Tingling, Focal weakness Psychiatric: Denies: Anxiety, Depression, Homicidal Ideations, Suicidal Ideations Hematologic/ Lymphatic: Denies: Easy Bruising, Easy Bleeding VTE Information - Inpt Only VTE Present on Admission: No VTE Mechan Device Prophylaxis: SCD's, Knee High LAWANDA Hose VTE Pharm Prophylaxis ordered?: Yes - Physical Exam General: Alert, Oriented x3, Cooperative HEENT: Atraumatic, PERRLA, EOMI, Normocephalic Neck: Supple, No JVD, Negative Carotid Bruits Lungs: Clear to auscultation, Normal air movement Cardiovascular: Regular rate, No murmurs Abdomen: Bowel Sounds Present, Soft, Non Tender Extremities: No edema, Capillary Refill Less than 3 Seconds Skin: No rashes, No breakdown Musculoskeletal: No Tenderness to Palpation of Joints or Extremities Neurological: Cranial nerves II-XII grossly intact Psych/Mental Status: Normal Affect, Appropriate, Alert and oriented to time, place, person, mood and affect Vital Signs Temp Pulse Resp BP Pulse Ox 97.9 F 93 18 147/66 H 100 11/29/17 15:18 11/29/17 15:18 11/29/17 15:18 11/29/17 15:18 11/29/17 15:18 Oxygen Delivery Method Room Air Weight: 89.1 kg Body Mass Index (BMI) 34.7 Active Medications Bisacodyl (Dulcolax) 10 mg RECTAL .PRN X 1 PRN PRN Reason: Constipation Magnesium Hydroxide (Milk Of Magnesia) 30 ml PO .PRN X 1 PRN PRN Reason: Constipation Ondansetron HCl (Zofran) 8 mg PO Q8H PRN PRN PRN Reason: NAUSEA Senna/Docusate Sodium (Senokot-S, Shelbi-Colace) 2 tablet PO BID [facility] Assessment/Plan Debility s/p Right Total Hip Replacement, complicated by Osteoarthritis, DM type II, and Hypothyroidism . Goal of rehab is church of functional independence. Plan: - Physical therapy for gait and balance - Occupational Therapy for ADLs - As needed analgesics - Bowel protocol - DVT prophylaxis: SCDs, ASA 325mg BID x 30 days per Ortho - Hx: Hyperthyroid - continue home dose of Synthroid - Diabetes type 2 => continue home medication of Metformin, mild S/S, AC/HS Accu-checks - Morbid Obesity -> BMI 34.7 2/2 related health conditions of DM II, Osteoarthritis, => improve glycemic control. carb controlled diet. Discussed weight Loss, dieting and exercise when well enough to do so. Discussed the risk associated with obesity and the benefits of weight loss. - s/p right total hip - Incision C/D/I, Evangelist and dressing removal on 12/08 - hx avascular necrosis. - Nausea with poor po intake - check bmp in am, prn zofran. - CPS/arachnoiditis/fibromyalgia - pt of Dr. Castro. - Hx c diff colitis - Hx of colorectal ca in remission s/p 2013 partial colectomy
--- NOTE | 2017-11-29 16:48 | PCM.PROGNOTE ---
Subjective: 67 yo female s/p planned right total hip per Dr. Clarke on 11/27 for gradual worsening of right hip arthropathy. She has a hx of avascular necrosis of the hip, chronic pain 2/2 fibromyalgia and arachnoiditis, DMt2, obesity, colorectal CA in remission since colectomy 2013, hx of C diff. She is now in the rehab unit since having the surgery. She is doing well. She has some pain in the right hip, worse with PT. She has been ambulatory. She has not had a recent trauma. She had some low blood pressure this AM and her narcotic pain meds were DCd. She also has some nausea and vomiting that she states may be from the narcotics as well. She has had poor PO intake today from this. She does live alone and wants to get stronger before going home. - Physical Exam General: Alert, Oriented x3, Cooperative HEENT: Atraumatic, PERRLA, EOMI, Normocephalic Neck: Supple, No JVD, Negative Carotid Bruits Lungs: Clear to auscultation, Normal air movement Cardiovascular: Regular rate, No murmurs Abdomen: Bowel Sounds Present, Soft, Non Tender Extremities: No edema, Capillary Refill Less than 3 Seconds Skin: No rashes, No breakdown Musculoskeletal: No Tenderness to Palpation of Joints or Extremities Neurological: Cranial nerves II-XII grossly intact Psych/Mental Status: Normal Affect, Appropriate, Alert and oriented to time, place, person, mood and affect Vital Signs Temp Pulse Resp BP Pulse Ox 97.9 F 93 18 147/66 H 100 11/29/17 15:18 11/29/17 15:18 11/29/17 15:18 11/29/17 15:18 11/29/17 15:18 Oxygen Delivery Method Room Air Weight: 89.1 kg Body Mass Index (BMI) 34.7 Medical Necessity - Tobacco Use Smoking Status: Never smoker Assessment/Plan 1. s/p right total hip - hx avascular necrosis. Post op, surgery on 11/27/[address] Clarke. PTOT per rehab team. oxy/morphine dc/d for low bp and nausea. 2. DMt2 - continue metformin 3. Nausea with poor po intake - check bmp in am, prn zofran. 4. HTN - running high. trend, was low this am as above. Elevated now. May need started on something if continues to be this high. Would benefit from NICOL-i with underlying diabetes. 5. CPS/arachnoiditis/fibromyalgia - pt of Dr. Castro. 6. Hx c diff colitis 7. hx of colorectal ca in remission s/p 2013 partial colectomy 8. Hypothyroid - synthroid 9. Obesity - improve glycemic control. carb controlled diet. DVT ppx: per ortho This patient was seen by Geraldo Hill PA-C under the supervision of .
[2017-11-29 17:15] LABS: Bedside Glucose 84 mg/dL (70-110)
[2017-11-29 19:41] VITALS: BP 151/81; PULSE 95; RESP 18; TEMP 36.8; O2SAT 95
[2017-11-29 21:41] LABS: Bedside Glucose 87 mg/dL (70-110)
[2017-11-29 22:00] VITALS: RESP 18
[2017-11-29] MEDS: Calcium Carb/Vitamin D 1 TABLET Tablet PO (22:15)
[2017-11-29] MEDS: Acetaminophen 325 MG Tablet 650 MG PO (22:16)
[2017-11-29] MEDS: Senna/Docusate Sodium 1 Tablet 2 TABLET PO (22:16)
[2017-11-29] MEDS: Amitriptyline 25 MG Tablet PO (22:17)
[2017-11-29 22:28] VITALS: BMI 34.8
[2017-11-29] MEDS: 0.9% Saline Lock 10 ML Syringe IV (23:20)
[2017-11-30] VITALS (7 sets, daily range): BP systolic 119–141; BP diastolic 52–68; PULSE 91–102; RESP 16–18; TEMP 36.8–36.9; O2SAT 94–95
[2017-11-30] MEDS: Acetaminophen 325 MG Tablet 650 MG PO (06:00)
[2017-11-30] MEDS: Levothyroxine 75 MCG Tablet PO (06:00)
[2017-11-30 06:11] LABS: Hematocrit 33.2 % (37-47); Hemoglobin 10.4 g/dl (12.0-15.0); Mean Corp Hgb Conc 31.3 g/gl (32-36); Mean Corpuscular Hgb 28.5 pg (27.0-32.0); Mean Platelet Vol. 11.7 fl (6.2-12.0); Platelet Count 208 K/mm3 (150-450); RBC Distribution Width CV 14.8 % (11.6-14.6); RBC Distribution Width SD 48.2 fl (35.1-43.9); Red Blood Count 3.65 M/mm3 (4.2-5.4); White Blood Count 9.4 K/mm3 (4.4-11.0)
[2017-11-30 06:13] LABS: Scan Indicated on CBC? Y/N NO
[2017-11-30 06:21] LABS: Anion Gap 7 (5-15); BUN 11 mg/dL (7-18); Calcium,Total 8.9 mg/dL (8.5-10.1); Chloride 104 mmol/L (98-107); Creatinine, Serum 0.85 mg/dL (0.55-1.02); EST Glomerular Filtration Rate 71 mL/min (>60); Est Glom Filt Rate - Afr Amer 85 mL/min (>60); Estimated Creatinine Clearance 51.67 ml/min; Glucose 86 mg/dL (74-106); Potassium 4.1 mmol/L (3.5-5.1); Sodium Level 141 mmol/L (136-145)
[2017-11-30 06:46] LABS: Bedside Glucose 96 mg/dL (70-110)
[2017-11-30 07:08] LABS: Phosphorus 2.8 mg/dL (2.5-4.9)
[2017-11-30] MEDS: Pantoprazole Sodium 40 MG Tablet PO (07:59)
[2017-11-30] MEDS: Ferrous Sulfate 325 MG Tablet PO (07:59)
[2017-11-30] MEDS: Lidocaine 5% Patch 1 PATCH TOPICAL (07:59)
[2017-11-30] MEDS: tiZANidine HCl 2 MG Tablet 4 MG PO (07:59)
[2017-11-30] MEDS: Aspirin 325 MG Tablet PO ×2 (07:59→16:57)
[2017-11-30] MEDS: Calcium Carb/Vitamin D 1 TABLET Tablet PO (07:59)
[2017-11-30] MEDS: Senna/Docusate Sodium 1 Tablet 2 TABLET PO (10:06)
--- NOTE | 2017-11-30 10:10 | NURSING ---
duragesic 12mcg patch applied to left arm.
--- NOTE | 2017-11-30 11:20 | NURSING ---
c/o dizziness, lightheadedness, and heart racing, bp 119/52, hr 92. pt reported that she can tolerate pain medications. duragesic patch removed from left arm per rn. pt has been drinking fluids well.
--- NOTE | 2017-11-30 12:00 | PCM.PN.NEU ---
Subjective: Patient seen and examined. Pain is still an issue, she has been unable to tolerate the Oxy IR, Fentanyl patch, or the Ultram, will increase her Tylenol to 1,000mg Q8hrs, and re-assess her later today. She is tolerating therapy otherwise. Denies any shortness of breath or chest pains. - Physical Exam General: Alert, Oriented x3, Cooperative HEENT: Atraumatic, PERRLA, EOMI, Normocephalic Neck: Supple, No JVD, Negative Carotid Bruits Lungs: Clear to auscultation, Normal air movement Cardiovascular: Regular rate, No murmurs Abdomen: Bowel Sounds Present, Soft, Non Tender Extremities: No edema, Capillary Refill Less than 3 Seconds Skin: No rashes, No breakdown Musculoskeletal: No Tenderness to Palpation of Joints or Extremities Neurological: Cranial nerves II-XII grossly intact Psych/Mental Status: Normal Affect, Appropriate, Alert and oriented to time, place, person, mood and affect Vital Signs Temp Pulse Resp BP Pulse Ox 98.5 F 92 18 119/52 L 94 11/30/17 10:10 11/30/17 11:21 11/30/17 07:51 11/30/17 11:21 11/30/17 07:51 Oxygen Delivery Method Room Air Weight: 89.1 kg Body Mass Index (BMI) 34.7 Intake and Output for Last 24 Hours 11/28/17 11/29/17 11/30/17 23:59 23:59 23:59 Intake Total 220 / 220 360 / 360 Balance 220 / 220 360 / 360 Laboratory Tests Past 24 Hrs 11/30/17 11/30/17 11/30/17 05:25 05:25 05:25 WBC 9.4 RBC 3.65 L Hgb 10.4 L Hct 33.2 L MCV 91.0 MCH 28.5 MCHC 31.3 L RDW 14.8 H RDW Differential 48.2 H Plt Count 208 MPV 11.7 Sodium 141 Potassium 4.1 Chloride 104 Carbon Dioxide 30.0 Anion Gap 7 BUN 11 Creatinine 0.85 Estim Creat Clear Calc 51.67 Est GFR (MDRD) Af Amer 85 Est GFR (MDRD) Non-Af 71 BUN/Creatinine Ratio 13.0 Glucose 86 Calcium 8.9 Phosphorus 2.8 Magnesium 2.0 POC Glucose 11/30/17 11/29/17 11/29/17 06:43 21:26 16:57 POC Glucose 96 87 84 Active Medications Acetaminophen (Tylenol) 1,000 mg PO Q8 [facility] Amitriptyline HCl (Elavil) 25 mg PO QHS [facility] Last Admin: 11/29/17 22:17 Dose: 25 mg [facility] Stop: 12/29/17 17:01 Last Admin: 11/30/17 07:59 Dose: 325 mg Bisacodyl (Dulcolax) 10 mg RECTAL .PRN X 1 PRN PRN Reason: Constipation Calcium/Vitamin D (Os-Flynn 500mg + D) 1 tablet PO DAILY [facility] Last Admin: 11/30/17 07:59 Dose: 1 tablet Ferrous Sulfate ([facility]ous Sulfate) [facility] Last Admin: 11/30/17 07:59 Dose: 325 mg Lactobacillus Acidophilus (Acidophilus) 1 tablet PO DAILY [facility] Last Admin: 11/30/17 07:59 Dose: 1 tablet Levothyroxine Sodium (Synthroid) 75 mcg PO DAILY@0600 [facility] Last Admin: 11/30/17 06:00 Dose: 75 mcg Lidocaine (Lidoderm Patch) 1 patch TOPICAL DAILY [facility] PRN Reason: Protocol Last Admin: 11/30/17 07:59 Dose: 1 patch Magnesium Hydroxide (Milk Of Magnesia) 30 ml PO .PRN X 1 PRN PRN Reason: Constipation [facility]formin [facility]) [facility] Last Admin: 11/30/17 07:59 Dose: 500 mg Ondansetron HCl (Zofran) 8 mg PO Q8H PRN PRN PRN Reason: NAUSEA Pantoprazole Sodium (Protonix) 40 mg PO DAILY [facility] Last Admin: 11/30/17 07:59 Dose: 40 mg Senna/Docusate Sodium (Senokot-S, Shelbi-Colace) 2 tablet PO BID [facility] Last Admin: 11/30/17 10:06 Dose: 2 tablet Sodium Chloride () 10 ml IV BID [facility] Last Admin: 11/29/17 23:20 Dose: 10 ml Sodium Chloride () 5 - 30 ml IV UD PRN PRN Reason: SALINE FLUSH Tizanidine HCl (Zanaflex) 4 mg PO DAILY [facility] Last Admin: 11/30/17 07:59 Dose: 4 mg Tramadol HCl (Ultram) 50 mg PO Q6H PRN PRN PRN Reason: MODERATE PAIN (4-5/10) Zolpidem Tartrate (Ambien (Generic)) 10 mg PO QHS PRN PRN PRN Reason: INSOMNIA Medical Necessity - Tobacco Use Smoking Status: Never smoker Assessment/Plan Debility s/p Right Total Hip Replacement, complicated by Osteoarthritis, DM type II, and Hypothyroidism . Goal of rehab is [facility] of functional independence. Plan: - Physical therapy for gait and balance - Occupational Therapy for ADLs - As needed analgesics => increase Tylenol to 1,000mg Q 8hrs, she does not tolerate narcotics very well so will stick with nonnarcotic medications - Bowel protocol - DVT prophylaxis: SCDs, ASA 325mg BID x 30 days per Ortho - Hx: Hyperthyroid - continue home dose of Synthroid - Diabetes type 2 => continue home medication of Metformin, mild S/S, AC/HS Accu-checks - Morbid Obesity -> BMI 34.7 2/2 related health conditions of DM II, Osteoarthritis, => improve glycemic control. carb controlled diet. Discussed weight Loss, dieting and exercise when well enough to do so. Discussed the risk associated with obesity and the benefits of weight loss. - s/p right total hip - Incision C/D/I, Evangelist and dressing removal on 12/08 - hx avascular necrosis. - Nausea with poor po intake - check bmp in am, prn zofran. - CPS/arachnoiditis/fibromyalgia - pt of Dr. Castro. - Hx c diff colitis - Hx of colorectal ca in remission s/p 2013 partial colectomy
--- NOTE | 2017-11-30 12:04 | PN.NEURO_ITS ---
Subjective: Patient seen and examined. Pain is still an issue, she has been unable to tolerate the Oxy IR, Fentanyl patch, or the Ultram, will increase her Tylenol to 1,000mg Q8hrs, and re-assess her later today. She is tolerating therapy otherwise. Denies any shortness of breath or chest pains. - Physical Exam General: Alert, Oriented x3, Cooperative HEENT: Atraumatic, PERRLA, EOMI, Normocephalic Neck: Supple, No JVD, Negative Carotid Bruits Lungs: Clear to auscultation, Normal air movement Cardiovascular: Regular rate, No murmurs Abdomen: Bowel Sounds Present, Soft, Non Tender Extremities: No edema, Capillary Refill Less than 3 Seconds Skin: No rashes, No breakdown Musculoskeletal: No Tenderness to Palpation of Joints or Extremities Neurological: Cranial nerves II-XII grossly intact Psych/Mental Status: Normal Affect, Appropriate, Alert and oriented to time, place, person, mood and affect Vital Signs Temp Pulse Resp BP Pulse Ox 98.5 F 92 18 119/52 L 94 11/30/17 10:10 11/30/17 11:21 11/30/17 07:51 11/30/17 11:21 11/30/17 07:51 Oxygen Delivery Method Room Air Weight: 89.1 kg Body Mass Index (BMI) 34.7 Intake and Output for Last 24 Hours 11/28/17 11/29/17 11/30/17 23:59 23:59 23:59 Intake Total 220 / 220 360 / 360 Balance 220 / 220 360 / 360 Laboratory Tests Past 24 Hrs 11/30/17 11/30/17 11/30/17 05:25 05:25 05:25 WBC 9.4 RBC 3.65 L Hgb 10.4 L Hct 33.2 L MCV 91.0 MCH 28.5 MCHC 31.3 L RDW 14.8 H RDW Differential 48.2 H Plt Count 208 MPV 11.7 Sodium 141 Potassium 4.1 Chloride 104 Carbon Dioxide 30.0 Anion Gap 7 BUN 11 Creatinine 0.85 Estim Creat Clear Calc 51.67 Est GFR (MDRD) Af Amer 85 Est GFR (MDRD) Non-Af 71 BUN/Creatinine Ratio 13.0 Glucose 86 Calcium 8.9 Phosphorus 2.8 Magnesium 2.0 POC Glucose 11/30/17 11/29/17 11/29/17 06:43 21:26 16:57 POC Glucose 96 87 84 Active Medications Acetaminophen (Tylenol) 1,000 mg PO Q8 [facility] Amitriptyline HCl (Elavil) 25 mg PO QHS [facility] Last Admin: 11/29/17 22:17 Dose: 25 mg [facility]) [facility] Stop: 12/29/17 17:01 Last Admin: 11/30/17 07:59 Dose: 325 mg Bisacodyl (Dulcolax) 10 mg RECTAL .PRN X 1 PRN PRN Reason: Constipation Calcium/Vitamin D (Os-Flynn 500mg + D) 1 tablet PO DAILY [facility] Last Admin: 11/30/17 07:59 Dose: 1 tablet Ferrous Sulfate (Ferrous Sulfate) [facility] Last Admin: 11/30/17 07:59 Dose: 325 mg Lactobacillus Acidophilus (Acidophilus) 1 tablet PO DAILY [facility] Last Admin: 11/30/17 07:59 Dose: 1 tablet Levothyroxine Sodium (Synthroid) 75 mcg PO DAILY@0600 [facility] Last Admin: 11/30/17 06:00 Dose: 75 mcg Lidocaine (Lidoderm Patch) 1 patch TOPICAL DAILY [facility] PRN Reason: Protocol Last Admin: 11/30/17 07:59 Dose: 1 patch Magnesium Hydroxide (Milk Of Magnesia) 30 ml PO .PRN X 1 PRN PRN Reason: Constipation Metformin HCl (Glucophage) [facility] Last Admin: 11/30/17 07:59 Dose: 500 mg Ondansetron HCl (Zofran) 8 mg PO Q8H PRN PRN PRN Reason: NAUSEA Pantoprazole Sodium (Protonix) 40 mg PO DAILY [facility] Last Admin: 11/30/17 07:59 Dose: 40 mg Senna/Docusate Sodium (Senokot-S, Shelbi-Colace) 2 tablet PO BID [facility] Last Admin: 11/30/17 10:06 Dose: 2 tablet Sodium Chloride () 10 ml IV BID [facility] Last Admin: 11/29/17 23:20 Dose: 10 ml Sodium Chloride () 5 - 30 ml IV UD PRN PRN Reason: SALINE FLUSH Tizanidine HCl (Zanaflex) 4 mg PO DAILY [facility] Last Admin: 11/30/17 07:59 Dose: 4 mg Tramadol HCl (Ultram) 50 mg PO Q6H PRN PRN PRN Reason: MODERATE PAIN (4-5/10) Zolpidem Tartrate (Ambien (Generic)) 10 mg PO QHS PRN PRN PRN Reason: INSOMNIA Medical Necessity - Tobacco Use Smoking Status: Never smoker Assessment/Plan Debility s/p Right Total Hip Replacement, complicated by Osteoarthritis, DM type II, and Hypothyroidism . Goal of rehab is yazdanism of functional independence. Plan: - Physical therapy for gait and balance - Occupational Therapy for ADLs - As needed analgesics => increase Tylenol to 1,000mg Q 8hrs, she does not tolerate narcotics very well so will stick with nonnarcotic medications - Bowel protocol - DVT prophylaxis: SCDs, ASA 325mg BID x 30 days per Ortho - Hx: Hyperthyroid - continue home dose of Synthroid - Diabetes type 2 => continue home medication of Metformin, mild S/S, AC/HS Accu -checks - Morbid Obesity -> BMI 34.7 2/2 related health conditions of DM II, Osteoarthritis, => improve glycemic control. carb controlled diet. Discussed weight Loss, dieting and exercise when well enough to do so. Discussed the risk associated with obesity and the benefits of weight loss. - s/p right total hip - Incision C/D/I, Corn and dressing removal on 12/08 - hx avascular necrosis. - Nausea with poor po intake - check bmp in am, prn zofran. - CPS/arachnoiditis/fibromyalgia - pt of Dr. Castro. - Hx c diff colitis - Hx of colorectal ca in remission s/p 2013 partial colectomy
[2017-11-30 12:10] LABS: Bedside Glucose 104 mg/dL (70-110)
[2017-11-30] MEDS: Acetaminophen 500 MG Tablet 1000 MG PO ×2 (14:16→21:02)
--- NOTE | 2017-11-30 15:24 | CHAPLAIN ---
Type of Pastoral Visit _x__ Initial Visit ___ Follow-up Visit ___ On-call Visit ___ General Patient Visit ___ Spiritual Assessment ___ Family Conference ___ Bereavement ___ Rapid Response ___ Code Blue ___ Other (describe below) Pastoral Care Referral From _x__ Patient ___ Family ___ Nurse ___ Physician ___ Dial Buffer ___ Security Intern ___ Other (describe below) Sacrament/Intervention _x__ Active listening ___ Anointing ___ Tenriism ___ Bereavement ___ Communion _x__ Daniela exploration ___ _x__ Life review _x__ Prayer ___ Reconciliation ___ Sacrament of Sick ___ Supportive presence ___ Wedding ___ Other (describe below) Pastoral Comments
[2017-11-30] MEDS: Magnesium Hydroxide 30 ML UDC PO (17:13)
[2017-11-30] MEDS: Amitriptyline 25 MG Tablet PO (21:02)
[2017-12-01] MEDS: Levothyroxine 75 MCG Tablet PO (05:27)
[2017-12-01] MEDS: Acetaminophen 500 MG Tablet 1000 MG PO ×3 (05:27→21:07)
[2017-12-01 07:21] VITALS: O2SAT 96
[2017-12-01] MEDS: Aspirin 325 MG Tablet PO ×2 (07:37→17:18)
[2017-12-01] MEDS: Ferrous Sulfate 325 MG Tablet PO (07:37)
[2017-12-01] MEDS: Pantoprazole Sodium 40 MG Tablet PO (07:37)
[2017-12-01] MEDS: Calcium Carb/Vitamin D 1 TABLET Tablet PO (07:37)
[2017-12-01 08:20] VITALS: BP 140/81; PULSE 117; RESP 17; TEMP 36.7; O2SAT 93
[2017-12-01] MEDS: Lidocaine 5% Patch 1 PATCH TOPICAL (09:21)
[2017-12-01 20:09] VITALS: BP 144/80; PULSE 96; RESP 16; TEMP 36.8; O2SAT 96
[2017-12-01] MEDS: tiZANidine HCl 2 MG Tablet 4 MG PO (21:08)
[2017-12-01] MEDS: Amitriptyline 25 MG Tablet PO (21:08)
[2017-12-02] MEDS: Ondansetron 8 MG Tablet PO ×3 (02:37→18:27)
[2017-12-02] MEDS: Levothyroxine 75 MCG Tablet PO (05:49)
[2017-12-02] MEDS: Acetaminophen 500 MG Tablet 1000 MG PO ×3 (05:49→22:26)
[2017-12-02 07:25] VITALS: BP 125/73; PULSE 86; RESP 18; TEMP 36.6; O2SAT 99
[2017-12-02] MEDS: Ferrous Sulfate 325 MG Tablet PO (07:29)
[2017-12-02] MEDS: traMADol 50 MG Tablet PO ×2 (07:29→13:40)
[2017-12-02] MEDS: Lidocaine 5% Patch 1 PATCH TOPICAL (07:29)
[2017-12-02] MEDS: Pantoprazole Sodium 40 MG Tablet PO (07:29)
[2017-12-02] MEDS: Calcium Carb/Vitamin D 1 TABLET Tablet PO (07:29)
[2017-12-02] MEDS: Aspirin 325 MG Tablet PO ×2 (07:29→17:36)
[2017-12-02 19:35] VITALS: BP 147/90; PULSE 101; RESP 16; TEMP 36.6; O2SAT 95
[2017-12-02] MEDS: Amitriptyline 25 MG Tablet PO (20:33)
[2017-12-02] MEDS: tiZANidine HCl 2 MG Tablet 4 MG PO (22:27)
[2017-12-03] MEDS: Levothyroxine 75 MCG Tablet PO (05:31)
[2017-12-03] MEDS: Acetaminophen 500 MG Tablet 1000 MG PO ×3 (05:31→22:41)
[2017-12-03] MEDS: Calcium Carb/Vitamin D 1 TABLET Tablet PO (07:50)
[2017-12-03] MEDS: Ferrous Sulfate 325 MG Tablet PO (07:51)
[2017-12-03] MEDS: Aspirin 325 MG Tablet PO ×2 (07:51→18:17)
[2017-12-03 08:03] VITALS: O2SAT 95
[2017-12-03 08:07] VITALS: BP 150/71; PULSE 93; RESP 17; TEMP 36.6; O2SAT 96
[2017-12-03] MEDS: Lidocaine 5% Patch 1 PATCH TOPICAL (10:57)
[2017-12-03] MEDS: Senna/Docusate Sodium 1 Tablet 2 TABLET PO ×2 (10:57→22:42)
[2017-12-03] MEDS: Pantoprazole Sodium 40 MG Tablet PO (10:57)
[2017-12-03] MEDS: traMADol 50 MG Tablet PO (12:51)
[2017-12-03] MEDS: Ondansetron 8 MG Tablet PO (12:51)
[2017-12-03 19:34] VITALS: BP 143/61; PULSE 102; RESP 17; TEMP 36.6; O2SAT 96
[2017-12-03] MEDS: Amitriptyline 25 MG Tablet PO (22:42)
[2017-12-03] MEDS: tiZANidine HCl 2 MG Tablet 4 MG PO (22:42)
[2017-12-04] MEDS: traMADol 50 MG Tablet PO ×3 (02:01→14:58)
[2017-12-04] MEDS: Ondansetron 8 MG Tablet PO ×2 (02:01→10:23)
[2017-12-04] MEDS: Levothyroxine 75 MCG Tablet PO (06:10)
[2017-12-04] MEDS: Acetaminophen 500 MG Tablet 1000 MG PO ×3 (06:10→21:33)
[2017-12-04 07:35] VITALS: BP 160/65; PULSE 91; RESP 16; TEMP 36.8; O2SAT 96
[2017-12-04] MEDS: Aspirin 325 MG Tablet PO ×2 (07:47→16:59)
[2017-12-04] MEDS: Ferrous Sulfate 325 MG Tablet PO (07:47)
[2017-12-04] MEDS: Senna/Docusate Sodium 1 Tablet 2 TABLET PO ×2 (07:48→21:33)
[2017-12-04] MEDS: Calcium Carb/Vitamin D 1 TABLET Tablet PO (07:48)
[2017-12-04] MEDS: Pantoprazole Sodium 40 MG Tablet PO (07:48)
[2017-12-04] MEDS: Lidocaine 5% Patch 1 PATCH TOPICAL (07:49)
[2017-12-04 19:09] VITALS: BP 161/71; PULSE 100; RESP 18; TEMP 36.8; O2SAT 95
[2017-12-04] MEDS: Amitriptyline 25 MG Tablet PO (21:34)
[2017-12-04] MEDS: tiZANidine HCl 2 MG Tablet 4 MG PO (22:43)
[2017-12-05] MEDS: traMADol 50 MG Tablet PO ×3 (03:39→17:12)
[2017-12-05] MEDS: Acetaminophen 500 MG Tablet 1000 MG PO ×3 (06:25→21:30)
[2017-12-05] MEDS: Levothyroxine 75 MCG Tablet PO (06:26)
[2017-12-05 07:39] VITALS: BP 123/66; PULSE 89; RESP 16; TEMP 36.4; O2SAT 93
[2017-12-05] MEDS: Ferrous Sulfate 325 MG Tablet PO (07:39)
[2017-12-05] MEDS: Calcium Carb/Vitamin D 1 TABLET Tablet PO (07:39)
[2017-12-05] MEDS: Aspirin 325 MG Tablet PO ×2 (07:39→17:31)
--- NOTE | 2017-12-05 09:07 | PCM.PN.NEU ---
Subjective: Staffed in team meeting. Family was at bedside. Questions where answered. With Physical therapy, she is able to walker about 300 feet at standby assist using the walker. She has gone up and down about 10 steps, at supervision level. She is supervision for bed mobility, from going from a sitting to a standing position. With Occupational therapy, she is supervision for her personal care, and toileting. She is able to get on and off the toilet at supervision level. Overall she is doing very well her pain is being managed. The plan is discharge home on Monday with outpatient physical therapy. She will be made MOD I on . - Physical Exam General: Alert, Oriented x3, Cooperative HEENT: Atraumatic, PERRLA, EOMI, Normocephalic Neck: Supple, No JVD, Negative Carotid Bruits Lungs: Clear to auscultation, Normal air movement Cardiovascular: Regular rate, No murmurs Abdomen: Bowel Sounds Present, Soft, Non Tender Extremities: No edema, Capillary Refill Less than 3 Seconds Skin: No rashes, No breakdown Musculoskeletal: No Tenderness to Palpation of Joints or Extremities Neurological: Cranial nerves II-XII grossly intact Psych/Mental Status: Normal Affect, Appropriate, Alert and oriented to time, place, person, mood and affect Vital Signs Temp Pulse Resp BP Pulse Ox 97.5 F L 89 16 123/66 H 93 12/05/17 07:39 12/05/17 07:39 12/05/17 07:39 12/05/17 07:39 12/05/17 07:39 Oxygen Delivery Method Room Air Weight: 89.1 kg Body Mass Index (BMI) 34.7 Intake and Output for Last 24 Hours 12/03/17 12/04/17 12/05/17 23:59 23:59 23:59 Intake Total 780 / 780 480 / 480 260 / 260 Balance 780 / 780 480 / 480 260 / 260 Active Medications Acetaminophen (Tylenol) 1,000 mg PO Q8 [facility] Last Admin: 12/05/17 06:25 Dose: 1,000 mg Amitriptyline HCl (Elavil) 25 mg PO QHS [facility] Last Admin: 12/04/17 21:34 Dose: 25 mg Aspirin (Aspirin) 325 mg PO BIDCM [facility] Stop: 12/29/17 17:01 Last Admin: 12/05/17 07:39 Dose: 325 mg Bisacodyl (Dulcolax) 10 mg RECTAL .PRN X 1 PRN PRN Reason: Constipation Calcium/Vitamin D (Os-Flynn 500mg + D) 1 tablet PO DAILY [facility] Last Admin: 12/05/17 07:39 Dose: 1 tablet Cholecalciferol (Vitamin D) 2,000 unit PO DAILY [facility] Last Admin: 12/05/17 07:39 Dose: 2,000 unit [facility]ous Sulfate [facility]) [facility] Admin: 12/05/17 07:39 Dose: 325 mg Lactobacillus Acidophilus (Acidophilus) 1 tablet PO DAILY [facility] Last Admin: 12/05/17 07:39 Dose: 1 tablet Levothyroxine Sodium (Synthroid) 75 mcg PO DAILY@0600 [facility] Last Admin: 12/05/17 06:26 Dose: 75 mcg Lidocaine (Lidoderm Patch) 1 patch TOPICAL DAILY [facility] PRN Reason: Protocol Last Admin: 12/04/17 07:49 Dose: 1 patch Magnesium Hydroxide (Milk Of Magnesia) 30 ml PO .PRN X 1 PRN PRN Reason: Constipation Last Admin: 11/30/17 17:13 Dose: 30 ml Metformin [facility] (Glucophage) [facility] Last Admin: 12/05/17 07:39 Dose: 500 mg Ondansetron HCl (Zofran) 8 mg PO Q8H PRN PRN PRN Reason: NAUSEA Last Admin: 12/04/17 10:23 Dose: 8 mg Pantoprazole Sodium (Protonix) 40 mg PO DAILY [facility] Last Admin: 12/04/17 07:48 Dose: 40 mg Senna/Docusate Sodium (Senokot-S, Shelbi-Colace) 2 tablet PO BID [facility] Last Admin: 12/04/17 21:33 Dose: 2 tablet Sodium Chloride () 5 - 30 ml IV UD PRN PRN Reason: SALINE FLUSH Tizanidine HCl (Zanaflex) 4 mg PO QHS [facility] Last Admin: 12/04/17 22:43 Dose: 4 mg Tramadol HCl (Ultram) 50 mg PO Q6H PRN PRN PRN Reason: MODERATE PAIN (4-5/10) Last Admin: 12/05/17 03:39 Dose: 50 mg Zolpidem Tartrate (Ambien (Generic)) 10 mg PO QHS PRN PRN PRN Reason: INSOMNIA Medical Necessity - Tobacco Use Smoking Status: Never smoker Assessment/Plan Debility s/p Right Total Hip Replacement, complicated by Osteoarthritis, DM type II, and Hypothyroidism . Goal of rehab is holiness of functional independence. Plan: - Physical therapy for gait and balance - Occupational Therapy for ADLs - As needed analgesics => increase Tylenol to 1,000mg Q 8hrs, she does not tolerate narcotics very well so will stick with nonnarcotic medications - Bowel protocol - DVT prophylaxis: SCDs, ASA 325mg BID x 30 days per Ortho - Hx: Hyperthyroid - continue home dose of Synthroid - Diabetes type 2 => continue home medication of Metformin, mild S/S, AC/HS Accu-checks - Morbid Obesity -> BMI 34.7 2/2 related health conditions of DM II, Osteoarthritis, => improve glycemic control. carb controlled diet. Discussed weight Loss, dieting and exercise when well enough to do so. Discussed the risk associated with obesity and the benefits of weight loss. - s/p right total hip - Incision C/D/I, Evangel[place] and dressing removal on 12/08 - hx avascular necrosis. - Nausea with poor po intake - check bmp in am, PRN Zofran. - CPS/arachnoiditis/fibromyalgia - pt of Dr. Castro. - Hx c diff colitis - Hx of colorectal ca in remission s/p 2013 partial colectomy - The plan is discharge on Monday, to home. She will be made MOD I on . - She will have outpatient Physical therapy when cleared by the surgeon to do so
[2017-12-05] MEDS: Senna/Docusate Sodium 1 Tablet 2 TABLET PO ×2 (11:12→21:28)
[2017-12-05] MEDS: Pantoprazole Sodium 40 MG Tablet PO (11:12)
[2017-12-05] MEDS: Ondansetron 8 MG Tablet PO (11:12)
[2017-12-05] MEDS: Lidocaine 5% Patch 1 PATCH TOPICAL (11:12)
--- NOTE | 2017-12-05 11:35 | CASEMGMT ---
Team meeting held. Patient present as well as support person. Patient doing well in therapy. Patient approved 14 Medicare days with a discharge by or on 12/13/17. Collaborating with team, discharge date set for 12/09/17. Patient agreeable to discharge date. Patient plans to discharge home alone. Patient reporting to have needed medical equipment already set up within the home. Patient planning to continue with therapy services through Outpatient physical therapy at [facility]. Support given. Proposed discharge date: 12/10/07 PLAN: Discharge home alone with outpatient physical therapy. Maura WASHINGTON, CAISSON WORKER
[2017-12-05] MEDS: Magnesium Hydroxide 30 ML UDC PO (17:12)
[2017-12-05] MEDS: Amitriptyline 25 MG Tablet PO (21:27)
[2017-12-05 22:00] VITALS: BP 146/63; PULSE 90; RESP 17; TEMP 36.6; O2SAT 96
[2017-12-05] MEDS: tiZANidine HCl 2 MG Tablet 4 MG PO (22:50)
[2017-12-06] MEDS: Levothyroxine 75 MCG Tablet PO (06:11)
[2017-12-06] MEDS: Acetaminophen 500 MG Tablet 1000 MG PO ×3 (06:11→21:03)
[2017-12-06] MEDS: Senna/Docusate Sodium 1 Tablet 2 TABLET PO ×2 (07:40→21:04)
[2017-12-06] MEDS: Calcium Carb/Vitamin D 1 TABLET Tablet PO (07:40)
[2017-12-06] MEDS: Aspirin 325 MG Tablet PO ×2 (07:40→17:56)
[2017-12-06] MEDS: Ferrous Sulfate 325 MG Tablet PO (07:41)
[2017-12-06] MEDS: Ondansetron 8 MG Tablet PO ×2 (07:58→17:52)
[2017-12-06] MEDS: traMADol 50 MG Tablet PO ×2 (07:59→18:14)
[2017-12-06 09:57] VITALS: BP 153/69; PULSE 98; RESP 16; TEMP 36.8; O2SAT 94
--- NOTE | 2017-12-06 10:04 | PN.NEURO_ITS ---
Subjective: Patient seen and examined. Tolerating therapy, pain is well controlled on current medications. Denies any shortness of breath, leg or chest pain. Tolerating regular diet. No issues with GI/. - Physical Exam General: Alert, Oriented x3, Cooperative HEENT: Atraumatic, PERRLA, EOMI, Normocephalic Neck: Supple, No JVD, Negative Carotid Bruits Lungs: Clear to auscultation, Normal air movement Cardiovascular: Regular rate, No murmurs Abdomen: Bowel Sounds Present, Soft, Non Tender Extremities: No edema, Capillary Refill Less than 3 Seconds Skin: No rashes, No breakdown Musculoskeletal: No Tenderness to Palpation of Joints or Extremities Neurological: Cranial nerves II-XII grossly intact Psych/Mental Status: Normal Affect, Appropriate, Alert and oriented to time, place, person, mood and affect Vital Signs Temp Pulse Resp BP Pulse Ox 98.2 F 98 16 153/69 H 94 12/06/17 09:57 12/06/17 09:57 12/06/17 09:57 12/06/17 09:57 12/06/17 09:57 Oxygen Delivery Method Room Air Weight: 88.6 kg Body Mass Index (BMI) 34.7 Intake and Output for Last 24 Hours 12/04/17 12/05/17 12/06/17 23:59 23:59 23:59 Intake Total 480 / 480 480 / 480 260 / 260 Balance 480 / 480 480 / 480 260 / 260 Active Medications Acetaminophen (Tylenol) 1,000 mg PO Q8 [facility] Last Admin: 12/06/17 06:11 Dose: 1,000 mg Amitriptyline HCl (Elavil) 25 mg PO QHS [facility] Last Admin: 12/05/17 21:27 Dose: 25 mg Aspirin (Aspirin) 325 mg PO BIDCM [facility] Stop: 12/29/17 17:01 Last Admin: 12/06/17 07:40 Dose: 325 mg Bisacodyl (Dulcolax) 10 mg RECTAL .PRN X 1 PRN PRN Reason: Constipation Calcium/Vitamin D (Os-Flynn 500mg + D) 1 tablet PO DAILY [facility] Last Admin: 12/06/17 07:40 Dose: 1 tablet Cholecalciferol (Vitamin D) 2,000 unit PO DAILY [facility] Last Admin: 12/06/17 07:40 Dose: 2,000 unit Ferrous Sulfate (F[facility]ous Sulfate) [facility] Last Admin: 12/06/17 07:41 Dose: 325 mg Lactobacillus Acidophilus (Acidophilus) 1 tablet PO DAILY [facility] Last Admin: 12/06/17 07:40 Dose: 1 tablet Levothyroxine Sodium (Synthroid) 75 mcg PO DAILY@0600 [facility] Last Admin: 12/06/17 06:11 Dose: 75 mcg Lidocaine (Lidoderm Patch) 1 patch TOPICAL DAILY [facility] PRN Reason: Protocol Last Admin: 12/05/17 11:12 Dose: 1 patch Magnesium Hydroxide (Milk Of Magnesia) 30 ml PO .PRN X 1 PRN PRN Reason: Constipation Last Admin: 12/05/17 17:12 Dose: 30 ml Metformin HCl (Glucophage) [facility] Last Admin: 12/06/17 07:40 Dose: 500 mg Ondansetron HCl (Zofran) 8 mg PO Q8H PRN PRN PRN Reason: NAUSEA Last Admin: 12/06/17 07:58 Dose: 8 mg Pantoprazole Sodium (Protonix) 40 mg PO DAILY [facility] Last Admin: 12/05/17 11:12 Dose: 40 mg Senna/Docusate Sodium (Senokot-S, Shelbi-Colace) 2 tablet PO BID [facility] Last Admin: 12/06/17 07:40 Dose: 2 tablet Sodium Chloride () 5 - 30 ml IV UD PRN PRN Reason: SALINE FLUSH Tizanidine HCl (Zanaflex) 4 mg PO QHS [facility] Last Admin: 12/05/17 22:50 Dose: 4 mg Tramadol HCl (Ultram) 50 mg PO Q6H PRN PRN PRN Reason: MODERATE PAIN (4-5/10) Last Admin: 12/06/17 07:59 Dose: 50 mg Zolpidem Tartrate (Ambien (Generic)) 10 mg PO QHS PRN PRN PRN Reason: INSOMNIA Medical Necessity - Tobacco Use Smoking Status: Never smoker Assessment/Plan Debility s/p Right Total Hip Replacement, complicated by Osteoarthritis, DM type II, and Hypothyroidism . Goal of rehab is shinto of functional independence. Plan: - Physical therapy for gait and balance - Occupational Therapy for ADLs - As needed analgesics => increase Tylenol to 1,000mg Q 8hrs, she does not tolerate narcotics very well so will stick with nonnarcotic medications - Bowel protocol - DVT prophylaxis: SCDs, ASA 325mg BID x 30 days per Ortho - Hx: Hyperthyroid - continue home dose of Synthroid - Diabetes type 2 => continue home medication of Metformin, mild S/S, AC/HS Accu -checks - Morbid Obesity -> BMI 34.7 2/2 related health conditions of DM II, Osteoarthritis, => improve glycemic control. carb controlled diet. Discussed weight Loss, dieting and exercise when well enough to do so. Discussed the risk associated with obesity and the benefits of weight loss. - s/p right total hip - Incision C/D/I, [place] and dressing removal on 12/08 - hx avascular necrosis. - Nausea with poor po intake - check bmp in am, PRN Zofran. - CPS/arachnoiditis/fibromyalgia - pt of Dr. Castro. - Hx c diff colitis - Hx of colorectal ca in remission s/p 2013 partial colectomy - The plan is discharge on Monday, to home. She will be made MOD I on . - She will have outpatient Physical therapy when cleared by the surgeon to do so
[2017-12-06] MEDS: Lidocaine 5% Patch 1 PATCH TOPICAL (10:30)
[2017-12-06] MEDS: Pantoprazole Sodium 40 MG Tablet PO (10:30)
[2017-12-06 20:43] VITALS: BP 152/66; PULSE 98; RESP 16; TEMP 36.9; O2SAT 95
[2017-12-06] MEDS: Amitriptyline 25 MG Tablet PO (21:03)
[2017-12-06] MEDS: tiZANidine HCl 2 MG Tablet 4 MG PO (22:56)
[2017-12-07] MEDS: Acetaminophen 500 MG Tablet 1000 MG PO ×3 (05:17→22:35)
[2017-12-07] MEDS: Levothyroxine 75 MCG Tablet PO (05:17)
[2017-12-07] MEDS: Ondansetron 8 MG Tablet PO ×2 (06:33→21:50)
[2017-12-07 07:13] VITALS: BP 124/73; PULSE 81; RESP 16; TEMP 36.6; O2SAT 98
[2017-12-07] MEDS: traMADol 50 MG Tablet PO ×3 (07:39→21:50)
[2017-12-07] MEDS: Calcium Carb/Vitamin D 1 TABLET Tablet PO (07:40)
[2017-12-07] MEDS: Aspirin 325 MG Tablet PO ×2 (07:40→17:12)
[2017-12-07] MEDS: Lidocaine 5% Patch 1 PATCH TOPICAL (07:40)
[2017-12-07] MEDS: Senna/Docusate Sodium 1 Tablet 2 TABLET PO ×2 (07:40→21:51)
[2017-12-07] MEDS: Ferrous Sulfate 325 MG Tablet PO (07:40)
[2017-12-07] MEDS: Pantoprazole Sodium 40 MG Tablet PO (07:41)
--- NOTE | 2017-12-07 10:18 | PCM.PN.NEU ---
Subjective: Patient seen and examined. No new complaints. Tolerating therapy. No issues with GI/. Currently MOD I with plans for discharge on Monday. - Physical Exam General: Alert, Oriented x3, Cooperative HEENT: Atraumatic, PERRLA, EOMI, Normocephalic Neck: Supple, No JVD, Negative Carotid Bruits Lungs: Clear to auscultation, Normal air movement Cardiovascular: Regular rate, No murmurs Abdomen: Bowel Sounds Present, Soft, Non Tender Extremities: No edema, Capillary Refill Less than 3 Seconds Skin: No rashes, No breakdown Musculoskeletal: No Tenderness to Palpation of Joints or Extremities Neurological: Cranial nerves II-XII grossly intact Psych/Mental Status: Normal Affect, Appropriate, Alert and oriented to time, place, person, mood and affect Vital Signs Temp Pulse Resp BP Pulse Ox 97.9 F 81 16 124/73 H 98 12/07/17 07:13 12/07/17 07:13 12/07/17 07:13 12/07/17 07:13 12/07/17 07:13 Oxygen Delivery Method Room Air Weight: 88.6 kg Body Mass Index (BMI) 34.7 Intake and Output for Last 24 Hours 12/05/17 12/06/17 12/07/17 23:59 23:59 23:59 Intake Total 480 / 480 480 / 480 Balance 480 / 480 480 / 480 Active Medications Acetaminophen (Tylenol) 1,[address] [facility] Last Admin: 12/07/17 05:17 Dose: 1,000 mg Amitriptyline HCl (Elavil) [address] [facility] Last Admin: 12/06/17 21:03 Dose: 25 mg [facility]) [facility] Stop: 12/29/17 17:01 Last Admin: 12/07/17 07:40 Dose: 325 mg Bisacodyl (Dulcolax) 10 mg RECTAL .PRN X 1 PRN PRN Reason: Constipation Calcium/Vitamin D (Os-Flynn 500mg + D) [address] [facility] Last Admin: 12/07/17 07:40 Dose: 1 tablet Cholecalciferol (Vitamin D) 2,[address] [facility] Last Admin: 12/07/17 07:40 Dose: 2,000 unit Ferrous Sulfate (Ferrous Sulfate) [facility] Last Admin: 12/07/17 07:40 Dose: 325 mg Lactobacillus Acidophilus (Acidophilus) [address] [facility] Last Admin: 12/07/17 07:40 Dose: 1 tablet Levothyroxine Sodium (Synthroid) 75 mcg PO DAILY@0600 [facility] Last Admin: 12/07/17 05:17 Dose: 75 mcg Lidocaine (Lidoderm Patch) [address] [facility] PRN Reason: Protocol Last Admin: 12/07/17 07:40 Dose: 1 patch Magnesium Hydroxide (Milk Of Magnesia) 30 ml PO .PRN X 1 PRN PRN Reason: Constipation Last Admin: 12/05/17 17:12 Dose: 30 ml Metformin HCl (Glucophage) [facility] Last Admin: 12/07/17 07:40 Dose: 500 mg Ondansetron HCl (Zofran) 8 mg PO Q8H PRN PRN PRN Reason: NAUSEA Last Admin: 12/07/17 06:33 Dose: 8 mg Pantoprazole Sodium (Protonix) [address] [facility] Last Admin: 12/07/17 07:41 Dose: 40 mg Senna/Docusate Sodium (Senokot-S, Shelbi-Colace) [address] [facility] Last Admin: 12/07/17 07:40 Dose: 2 tablet Sodium Chloride () 5 - 30 ml IV UD PRN PRN Reason: SALINE FLUSH Tizanidine HCl (Zanaflex) [address] [facility] Last Admin: 12/06/17 22:56 Dose: 4 mg Tramadol HCl (Ultram) 50 - 100 mg PO Q6H PRN PRN PRN Reason: MODERATE PAIN (4-5/10) Last Admin: 12/07/17 07:39 Dose: 100 mg Zolpidem Tartrate (Ambien (Generic)) 10 mg PO QHS PRN PRN PRN Reason: INSOMNIA Medical Necessity - Tobacco Use Smoking Status: Never smoker Assessment/Plan All Active Problems C. difficile colitis (Acute) Chest pain on exertion (Acute) Dyspnea (Acute) Weakness generalized (Acute) Anemia (Acute) Debility s/p Right Total Hip Replacement, complicated by Osteoarthritis, DM type II, and Hypothyroidism . Goal of rehab is hinduism of functional independence. Plan: - Physical therapy for gait and balance - Occupational Therapy for ADLs - As needed analgesics => increase Tylenol to 1,000mg Q 8hrs, she does not tolerate narcotics very well so will stick with nonnarcotic medications - Bowel protocol - DVT prophylaxis: SCDs, ASA 325mg BID x 30 days per Ortho - Hx: Hyperthyroid - continue home dose of Synthroid - Diabetes type 2 => continue home medication of Metformin, mild S/S, AC/HS Accu-checks - Morbid Obesity -> BMI 34.7 2/2 related health conditions of DM II, Osteoarthritis, => improve glycemic control. carb controlled diet. Discussed weight Loss, dieting and exercise when well enough to do so. Discussed the risk associated with obesity and the benefits of weight loss. - s/p right total hip - Incision C/D/I, Evangelist and dressing removal on 12/08 - hx avascular necrosis. - Nausea with poor po intake - check bmp in am, PRN Zofran. - CPS/arachnoiditis/fibromyalgia - pt of Dr. Castro. - Hx c diff colitis - Hx of colorectal ca in remission s/p 2013 partial colectomy - The plan is discharge on Monday, to home. She will be made MOD I on . - She will have outpatient Physical therapy when cleared by the surgeon to do so
[2017-12-07 19:18] VITALS: BP 112/73; PULSE 82; RESP 18; TEMP 36.9; O2SAT 98
[2017-12-07] MEDS: Amitriptyline 25 MG Tablet PO (21:47)
[2017-12-07] MEDS: tiZANidine HCl 2 MG Tablet 4 MG PO (22:35)
[2017-12-08] MEDS: Acetaminophen 500 MG Tablet 1000 MG PO ×3 (05:35→20:29)
[2017-12-08] MEDS: Levothyroxine 75 MCG Tablet PO (05:36)
--- NOTE | 2017-12-08 05:54 | NURSING ---
Pt provided pain meds and removed 24 carol from right hip. Surgical incision 16 cm long, clean, dry, and covered with an IBD. Pt tolerated well.
[2017-12-08] MEDS: Aspirin 325 MG Tablet PO ×2 (07:36→17:44)
[2017-12-08] MEDS: Calcium Carb/Vitamin D 1 TABLET Tablet PO (07:36)
[2017-12-08] MEDS: Pantoprazole Sodium 40 MG Tablet PO (07:36)
[2017-12-08] MEDS: Ferrous Sulfate 325 MG Tablet PO (07:36)
[2017-12-08] MEDS: Senna/Docusate Sodium 1 Tablet 2 TABLET PO ×2 (07:37→20:29)
[2017-12-08 07:46] VITALS: BP 119/55; PULSE 84; RESP 16; TEMP 36.7; O2SAT 96
[2017-12-08] MEDS: Lidocaine 5% Patch 1 PATCH TOPICAL (08:19)
[2017-12-08] MEDS: traMADol 50 MG Tablet PO ×3 (08:29→22:42)
--- NOTE | 2017-12-08 09:57 | CASEMGMT ---
Social Work Spoke with patient in room to collaborate further on discharge date. Patient reporting to have needed medical equipment already set up within the home. This social service technician communicating that physical therapy is recommending for patient to have continued services through outpatient therapy, patient is agreeable to recommendation and requesting for outpatient physical therapy to be set up through [facility]. Patient family plans to provide transportation home for patient at time of discharge. Support given. Telephone call to [facility] [employer]. Appointment set up for 12/14/17 @ 10:30am. Patient with standing order already in place at [facility]. Proposed discharge date: 12/09/17 PLAN: Discharge home alone with family for support as needed. Maura WASHINGTON, TRANSFER WORKER
--- NOTE | 2017-12-08 15:58 | PCM.DC ---
- Discharge Diagnoses Reason(s) for Visit for Discharge Instructions: Right Total Hip You will use the following diet at home:: Regular Your food should be the consistency of: Regular Your liquids should be the consistency of: Regular/Thin Discharge Activity: May Not Drive - Until cleared by Orthopedic Surgeon, May not drive while taking narcotic pain medications., May Shower, Use Walker, - - not Soak in a Tub Bath until cleared by Orthopedic Surgeon Weight Bearing Status: Weight bearing as tolerated Call your doctor if your incision/area has: Increased Pain/ Swelling, Increased Redness, Foul Smelling Discharge, Swelling at the incision site Call your doctor if you observe: Fever of 101 or Higher, Coldness, Increased Pain, Numbness or Tingling, Change in Color, Inability to urinate, Inability to have a bowel movement, Using more than one pad per hour, Shortness of breath, Dizziness, Fainting spells, Swelling in the ankles, Chest pain, Prolonged hiccoughing, Increased palpitations (irregular heartbeat), Calf discomfort, Uncontrolled pain Allergies/Adverse Reactions: Allergies codeine Adverse Reaction (Verified 11/14/17 12:57) Upset Stomach bee sting Adverse Reaction (Uncoded 11/14/17 12:57) Anaphylaxis Medications to take at Discharge Amitriptyline HCl [Elavil] 25 mg PO QHS 10/10/13 Tizanidine HCl [Zanaflex] 4 mg PO DAILY 10/10/13 Zolpidem Tartrate [Ambien Cr] 10 mg PO QHS PRN PRN 10/10/13 Calcium Carbonate/Vitamin D3 [Calcium 600-Vit D3 400 Tablet] 1 each PO DAILY 10/29/13 Omeprazole 1 tab PO DAILY 10/29/13 Metformin HCl [Glucophage] 500 mg PO DAILY 10/26/15 Ferrous Sulfate [Iron] 325 mg PO DAILY 11/14/17 L.acidoph,Paracasei, B.lactis [Probiotic] 1 each PO DAILY 11/14/17 Levothyroxine [Synthroid] 75 mcg PO DAILY 11/14/17 Aspirin 325 mg PO BIDCM 11/29/17 Lidocaine [Lidoderm Patch] 1 patch TOPICAL DAILY #30 patch 12/08/17 Ondansetron [Zofran] 8 mg PO Q8H PRN PRN #90 tab 12/08/17 Senna/Docusate Sodium [Senokot-S] 2 tab PO BID #60 tab 12/08/17 traMADol [Ultram] 50 - 100 mg PO Q6H PRN PRN #28 tab 12/08/17 The following prescriptions were given: traMADol [Ultram] 50 - 100 mg PO Q6H PRN PRN #28 tab PRN Reason: Moderate Pain (4-5/10) Ondansetron [Zofran] 8 mg PO Q8H PRN PRN #90 tab PRN Reason: Nausea Lidocaine [Lidoderm Patch] 1 patch TOPICAL DAILY #30 patch Senna/Docusate Sodium [Senokot-S] 2 tab PO BID #60 tab Primary Care Physician: Keaton Berger MD [Primary Care Provider] - Please Follow Up With: Dr Sharad Berger When: Please Follow Up With: [facility] - Physical therapy Please Follow Up With: Asif Burnett Proposed Discharge Date: 12/09/17
--- NOTE | 2017-12-08 16:02 | PCM.RU.DC ---
Rehab Discharge Summary DATE OF ADMISSION: 11/29/17 DATE OF DISCHARGE: 12/09/17 - Rehab Diagnosis Right Total Hip Discharge Diet: No Restrictions Discharge Activity: May Not Drive - Until cleared by Orthopedic Surgeon, May not drive while taking narcotic pain medications., May Shower, Use Walker, - - not Soak in a Tub Bath until cleared by Orthopedic Surgeon Weight Bearing Status: Weight bearing as tolerated Call your doctor if your incision/area has: Increased Pain/ Swelling, Increased Redness, Foul Smelling Discharge, Swelling at the incision site Call your doctor if you observe: Fever of 101 or Higher, Coldness, Increased Pain, Numbness or Tingling, Change in Color, Inability to urinate, Inability to have a bowel movement, Using more than one pad per hour, Shortness of breath, Dizziness, Fainting spells, Swelling in the ankles, Chest pain, Prolonged hiccoughing, Increased palpitations (irregular heartbeat), Calf discomfort, Uncontrolled pain Home Medications: Medications to take at Discharge Amitriptyline HCl [Elavil] 25 mg PO QHS 10/10/13 Tizanidine HCl [Zanaflex] 4 mg PO DAILY 10/10/13 Zolpidem Tartrate [Ambien Cr] 10 mg PO QHS PRN PRN 10/10/13 Calcium Carbonate/Vitamin D3 [Calcium 600-Vit D3 400 Tablet] 1 each PO DAILY 10/29/13 Omeprazole 1 tab PO DAILY 10/29/13 Metformin HCl [Glucophage] 500 mg PO DAILY 10/26/15 Ferrous Sulfate [Iron] 325 mg PO DAILY 11/14/17 L.acidoph,Paracasei, B.lactis [Probiotic] 1 each PO DAILY 11/14/17 Levothyroxine [Synthroid] 75 mcg PO DAILY 11/14/17 Aspirin 325 mg PO BIDCM 11/29/17 Lidocaine [Lidoderm Patch] 1 patch TOPICAL DAILY #30 patch 12/08/17 Ondansetron [Zofran] 8 mg PO Q8H PRN PRN #90 tab 12/08/17 Senna/Docusate Sodium [Senokot-S] 2 tab PO BID #60 tab 12/08/17 traMADol [Ultram] 50 - 100 mg PO Q6H PRN PRN #28 tab 12/08/17 Following Prescrptions Were Given to Patient: traMADol [Ultram] 50 - 100 mg PO Q6H PRN PRN #28 tab PRN Reason: Moderate Pain (4-5/10) Ondansetron [Zofran] 8 mg PO Q8H PRN PRN #90 tab PRN Reason: Nausea Lidocaine [Lidoderm Patch] 1 patch TOPICAL DAILY #30 patch Senna/Docusate Sodium [Senokot-S] 2 tab PO BID #60 tab Primary Care Physician: Keaton Berger MD [Primary Care Provider] - Please Follow Up With: Dr Sharad Berger When: Please Follow Up With: [facility] - Physical therapy Please Follow Up With: Asif Burnett Disposition: Home - With Outpatient Physical therapy Minutes spent on discharge:: 40 Patient Condition:: Good Rehab Course The patient is a 67 year old right handed female who was admitted to the rehab unit for rehabilitation after elective surgery for Right total hip replacement for gradual worsening of right hip arthropathy, on 11/27/[address] Damien Clarke, with out complications. She has a history of avascular necrosis of the hip, chronic pain 2/2 fibromyalgia and arachnoiditis, Diabetes type II, osteoarthritis, Hypothyroidism, colon cancer in remission since partial colectomy in 2013, hx of C-Diff and Morbid Obesity -> BMI 34.7 2/2 related health conditions of DM II, Osteoarthritis. She became hypotensive this morning, after doing physical therapy, and once she returned to her room, some of her narcotic pain medications were DCd, and she was given a Liter of LR, she is now normotensive, slightly on the high side, will continue to monitor. She also has some nausea and vomiting that she states may be from the narcotics as well. She has had poor PO intake the last few days from this. She lives alone in an apartment, has no steps just a curb area to get into the home. She was previously completely functionally independent, able to do all her own ADLs and was driving and is admitted to the rehab unit in order to restore her previous level of functional independence. With Physical therapy, she is able to walker about 300 feet at standby assist using the walker. She has gone up and down about 10 steps, at supervision level. She is supervision for bed mobility, from going from a sitting to a standing position. With Occupational therapy, she is supervision for her personal care, and toileting. She is able to get on and off the toilet at supervision level. Overall she is doing very well her pain is being managed. The plan is discharge home on MondayDecember 09, with outpatient physical therapy. Meaningful Use Info Meaningful Use Diagnoses (Choose all that apply): None applicable
[2017-12-08] MEDS: Amitriptyline 25 MG Tablet PO (20:28)
[2017-12-08 20:32] VITALS: BP 135/70; PULSE 83; RESP 16; TEMP 36.8; O2SAT 93
[2017-12-08] MEDS: tiZANidine HCl 2 MG Tablet 4 MG PO (22:40)
[2017-12-08] MEDS: Ondansetron 8 MG Tablet PO (22:45)
--- NOTE | 2017-12-09 02:14 | NURSING ---
Reviewed and agree with LPNs fims and handoff
[2017-12-09] MEDS: Acetaminophen 500 MG Tablet 1000 MG PO (06:15)
[2017-12-09] MEDS: Levothyroxine 75 MCG Tablet PO (06:15)
[2017-12-09 07:34] VITALS: BP 104/60; PULSE 88; RESP 18; TEMP 36.7; O2SAT 97
[2017-12-09] MEDS: traMADol 50 MG Tablet PO (07:38)
[2017-12-09] MEDS: Aspirin 325 MG Tablet PO (07:38)
[2017-12-09] MEDS: Ferrous Sulfate 325 MG Tablet PO (07:38)
[2017-12-09] MEDS: Pantoprazole Sodium 40 MG Tablet PO (07:38)
[2017-12-09] MEDS: Calcium Carb/Vitamin D 1 TABLET Tablet PO (07:38)
[2017-12-09] MEDS: Lidocaine 5% Patch 1 PATCH TOPICAL (07:42)
[2017-12-09] MEDS: Senna/Docusate Sodium 1 Tablet 2 TABLET PO (07:50)
--- NOTE | 2017-12-09 09:41 | NURSING ---
patient verbalized understanding of discharge instructions. denies any further questions. patient discharged home at this time.
== END 2017-12-09 09:43 | disposition home or self-care (01) | DRG 561 ==
PROVIDERS: Hospitalist; Nurse Practitioner Acute Care; Physician Assistant; Admitting Provider Psychiatry & Neurology Neurology; Family Provider Family Medicine; PCP Family Medicine; Visit Provider Internal Medicine
DX: Z47.1 Aftercare following joint replacement surgery (principal); Z96.641 Presence of right artificial hip joint; E11.9 Type 2 diabetes mellitus without complications; E03.9 Hypothyroidism, unspecified; Z85.048 Personal history of other malignant neoplasm of rectum, rectosigmoid junction, and anus; E66.01 Morbid (severe) obesity due to excess calories; Z68.34 Body mass index [BMI] 34.0-34.9, adult; Z71.3 Dietary counseling and surveillance; M79.7 Fibromyalgia; Z86.61 Personal history of infections of the central nervous system; Z79.899 Other long term (current) drug therapy; Z90.49 Acquired absence of other specified parts of digestive tract; G89.4 Chronic pain syndrome; D50.9 Iron deficiency anemia, unspecified; I10 Essential (primary) hypertension; Z86.19 Personal history of other infectious and parasitic diseases
CPT/HCPCS: 36415; 80048; 82962; 83735; 84100; 85027; 97110; 97116; 97162; 97165; 97530; 97535; 97802; A4216

== ENCOUNTER → 2018-04-09 09:07 | Outpatient (CLI) | payer MEDICARE, MEDICAID, SELFPAY ==
[2018-04-09 11:12] LABS: ALB/GLOB Ratio 0.8 RATIO (0.9-2.4); AST(SGOT) 29 U/L (15-37); Alanine Aminotransfer ALT/SGPT 36 U/L (13-56); Albumin, Serum 3.3 g/dL (3.2-5.0); Alkaline Phosphatase 148 U/L (45-117); Anion Gap 10 (5-15); BUN 15 mg/dL (7-18); BUN/Creat Ratio 15.6 RATIO (10-20); Calcium,Total 9.2 mg/dL (8.5-10.1); Chloride 104 mmol/L (98-107); Cholesterol 187 mg/dL (200); Creatinine, Serum 0.96 mg/dL (0.55-1.02); EST Glomerular Filtration Rate 61 mL/min (>60); Est Glom Filt Rate - Afr Amer 74 mL/min (>60); Globulin 3.9 g/dL (2.2-4.2); Glucose 108 mg/dL (74-106); High Density Lipoprotein 37 mg/dL; Potassium 4.1 mmol/L (3.5-5.1); Protein, Total 7.2 g/dL (6.4-8.2); Sodium Level 143 mmol/L (136-145); Thyroid Stim Hormone (TSH) 0.78 uIU/mL (0.358-3.74); Triglycerides 164 mg/dL; Very Low Density Lipoprotein 33 mg/dL (5-40)
[2018-04-09 14:07] LABS: Microalbumin:Creatinine Ratio 4.6 mg/g CRE (<30 mg/g CRE)
== END ==
PROVIDERS: Family Provider Family Medicine; PCP Family Medicine; Visit Provider Family Medicine
DX: I10 Essential (primary) hypertension (principal); E11.9 Type 2 diabetes mellitus without complications; E03.9 Hypothyroidism, unspecified
CPT/HCPCS: 36415; 80053; 80061; 82043; 82570; 84443

== ENCOUNTER → 2018-06-25 16:15 | Outpatient (CLI) | payer MEDICARE, MEDICAID, SELFPAY ==
--- NOTE | 2018-06-25 16:22 | RAD_ITS ---
STUDY: X-RAY - ABDOMEN/PELVIS REASON FOR EXAM: Female, 67 years old. Pain TECHNIQUE: 4 AP supine views of the abdomen and pelvis. COMPARISON: 2014 CT scan abdomen and pelvis FINDINGS: Lung bases are out of the [id number]. There is a focus of radiopaque material within the right midline abdomen stable since the prior study. There are at least 2 stones in the right upper quadrant distant the livers and short silhouette measuring at least 5.5 mm. There is moderate stool within the colon. There is no demonstrated free abdominal air. The visualized liver, spleen and kidneys are grossly normal in size and morphology. There are calcified phleboliths in the pelvis. There is a right hip arthroplasty. There is degenerative change in the thoracolumbar spine. RAD/Abd Inc Decub and/or Erect IMPRESSION: Moderate constipation. Status post right hip arthroplasty. Cholelithiasis similar to prior study. Electronically Signed: Sarah Rain MD at 2:48 EST Tel , Service support ,
--- OUTSIDE RECORDS SUMMARY | 2018-09-27 09:04 | XMS RPT_ITS ---
:1950 Author Organization [place] Support Name Relationship Address Phone ARYAN VICK Unavailable [address] + [place] [address] NATHALIA FRANCE Unavailable [address] + [place] [address] R Unavailable Unavailable Unavailable ARYAN VICK Unavailable [address] + [place] [address] NATHALIA FRANCE Unavailable [address] + [place], [place] R Unavailable Unavailable Unavailable NICANOR ARYAN Unavailable [address] + [place] [address] NATHALIA FRANCE Unavailable [address] + [place] [address] R Unavailable Unavailable Unavailable ARYAN VICK Unavailable [address] + [place] [address] NATHALIA FRANCE Unavailable [address] + [place] [address] R Unavailable Unavailable Unavailable NICANOR ARYAN Unavailable [address] + [place] [address] NATHALIA FRANCE Unavailable [address] + [place], [place] R Unavailable Unavailable Unavailable NICANOR ARYAN Unavailable [address] + [place] [address] NATHALIA FRANCE Unavailable [address] + [place], [place] R Unavailable Unavailable Unavailable NICANOR ARYAN Unavailable [address] + [place] [address] NATHALIA FRANCE Unavailable [address] + [place], [place] R Unavailable Unavailable Unavailable ARYAN VICK Unavailable [address] + [place] [address] NATHALIA FRANCE Unavailable [address] + [place], [place] R Unavailable Unavailable Unavailable ARYAN VICK Unavailable [address] + [place] [address] NATHALIA FRANCE Unavailable [address] + [place], [place] Unavailable Unavailable Unavailable ARYAN VICK Unavailable [address] + [place] [address] NATHALIA FRANCE Unavailable [address] + [place], [place] R Unavailable Unavailable Unavailable ARYAN VICK Unavailable [address] + [place] [address] NATHALIA FRANCE Unavailable [address] + [place], [place] R Unavailable Unavailable Unavailable ARYAN VICK Unavailable [address] + [place] [address] NATHALIA FRANCE Unavailable [address] + [place], [place] R Unavailable Unavailable Unavailable ARYAN VICK Unavailable [address] + [place] [address] NATHALIA FRANCE Unavailable [address] + [place], [place] R Unavailable Unavailable Unavailable ARYAN VICK Unavailable [address] + [place] [address] NATHALIA FRANCE Unavailable [address] + [place], [place] R Unavailable Unavailable Unavailable Care Team Providers Name Role Phone Sivakumar Berger Attending Unavailable Sivakumar Berger Referring Unavailable Sivakumar Berger Primary Care Unavailable Sivakumar Berger Attending Unavailable Sivakumar Berger Referring Unavailable Sivakumar Berger Primary Care Unavailable Tony Castro Attending Unavailable Sivakumar Berger Primary Care Unavailable Sivakumar Berger Attending Unavailable Sivakumar Berger Referring Unavailable Ranney, Christopher Primary Care Unavailable Ranney, Christopher Attending Unavailable Ranney, Christopher Referring Unavailable Ranney, Christopher Primary Care Unavailable Ranney, Christopher Attending Unavailable Ranney, Christopher Referring Unavailable Ranney, Christopher Primary Care Unavailable Ranney, Christopher Attending Unavailable Ranney, Christopher Referring Unavailable Ranney, Christopher Primary Care Unavailable Ranney, Christopher Attending Unavailable Ranney, Christopher Referring Unavailable Ranney, Christopher Primary Care Unavailable Vince, Damien Admitting Unavailable Vince, Damien Attending Unavailable Vince, Damien Referring Unavailable Ranney, Christopher Primary Care Unavailable Hinton, Armando Admitting Unavailable Hinton, Armando Referring Unavailable Ranney, Christopher Primary Care Unavailable White, Stephanie Consulting Unavailable Paintsil, [place] Attending Unavailable Hinton, Armando Admitting Unavailable Hinton, Armando Referring Unavailable Ranney, Christopher Primary Care Unavailable White, Stephanie Consulting Unavailable White, Stephanie Attending Unavailable Hinton, Armando Consulting Unavailable Moodispaw, Mahesh Attending Unavailable MoodispaMahesh john Attending Unavailable Vince, Damien Referring Unavailable Ranney, Christopher Attending Unavailable Ranney, Christopher Primary Care Unavailable PROBLEMS PROBLEMS DATE TYPE CONDITION / CODE ATTENDING STATUS SOURCE 07/18/2018 Unknown Z12.31 - Encounter Celine, Active [place] for screening [facility] mammogram for Hospital malignant neoplasm Repository of breast / Z12.31(ICD-10) 07/25/2018 Unknown R25.2 - Cramp and [place]eline, Active [place] spasm / [facility] R25.2(ICD-10) Hospital Repository 07/25/2018 Unknown R14.0 - Abdominal Ranvaleriy, Active [place] distension (gaseous) [facility] / R14.0(ICD-10) Hospital Repository 05/02/2018 Unknown I10 - Essential Ranvaleriy, Active [place] (primary) [facility] hypertension / Hospital I10(ICD-10) Repository 05/02/2018 Unknown E11.9 - Type 2 [place]ney, Active [place] diabetes mellitus [facility] without Hospital complications / Repository E11.9(ICD-10) 05/02/2018 Unknown E03.9 - [place], Active [place] Hypothyroidism, [facility] unspecified / Hospital E03.9(ICD-10) Repository 11/29/2017 Unknown G89.18 - Other acute [place] Clarke Active [place] postprocedural pain Community / G89.18(ICD-10) Hospital Repository 12/29/2017 Unknown R07.9 - Chest pain, Mahesh Ceballos Active [place] unspecified / Community R07.9(ICD-10) Hospital Repository 11/07/2017 Unknown M25.551 - Pain in [place], Active [place] right hip / [place] [facility] M25.551(ICD-10) Hospital Repository 09/22/2017 Unknown M25.559 - Pain in Tony Castro Active [place] unspecified hip / Community M25.559(ICD-10) Hospital Repository PROCEDURES PROCEDURES No Procedure Records FoundRESULTS RESULTS SCREENING MAMM (CAD), Observed: 07/12/2018 Status: F Source: [place] BILAT 7:49 AM [facility] REPOSITORY [facility] Imaging Services [address] [place] [address] SCREENING MAMM (CAD), BILAT MR#: [id number] Acct: [id number] Name: KERWIN VICK Rep #: [id number] : 1950 F 67 From: Amor Lueavno MD PCP: Sivakumar Berger MD Status: REG CLI Study: SCREENING MAMM (CAD), BILAT Date of Exam: 07/12/18 Exam# [id number] Ordering Dr: Keaton Berger MD MAMMOGRAPHY - BILATERAL SCREENING REASON FOR EXAM: Female, 67 years old. Routine annual screening examination. PERTINENT HISTORY: Mother with breast cancer. Aunt with breast cancer. TECHNIQUE: Digital bilateral breast bella (3D mammographic acquisition) in the CC and MLO projections. 2-D mediolateral oblique (MLO) and craniocaudad (CC) views of both breasts were obtained. CAD: Full Field Digital Mammography with Computer Added Detection was performed. COMPARISON: Comparison is made with prior study dated July 07, 2016 and July 11, 2007. FINDINGS: Breast Composition: There are scattered areas of fibroglandular density. There are no dominant masses or suspicious calcifications. Stable small benign-appearing bilateral axillary lymph nodes. No other significant abnormalities are identified. There has been no significant change since the prior study. BI/SCREENING MAMM (CAD), BILAT IMPRESSION: Stable bilateral screening mammogram. Yearly follow-up mammogram recommended. (A) ASSESSMENT CATEGORY: BIRADS Category 2: Benign. A letter regarding these results will be sent to the patient by the facility within 30 days. Approximately 10% of breast cancers are not detected by mammography. A normal mammogram should not delay biopsy of a clinically suspicious abnormality. [id number] Electronically Signed: Amor Luevano MD at 12:51 EST Tel [phone], Service support , CC: Sivakumar Berger MD Apparel Stock Checker: Signed ERYTHROCYTE SED RATE Collected: 06/27/2018 Status: F Source: [place] 10:24 AM [facility] REPOSITORY TYPE CODE TESTS RESULT OUT OF RANGE REFERENCE UNITS LAB L102.0000 0-30 mm/hr High SED RATE 41 Performed By: #### L101.9900, L100.0500, L500.2500, L501.5200, L501.9520 #### [facility] [address] [place], [place], [id number] CBC-COMPLETE BLOOD CNT Collected: 06/27/2018 Status: F Source: [place] NO DIFF 10:24 AM [facility] REPOSITORY TYPE CODE TESTS RESULT OUT OF RANGE REFERENCE UNITS LAB L100.1000 4.4-11.0 K/mm3 Normal WBC 8.2 LAB L100.1200 4.2-5.4 M/mm3 Normal RBC 4.51 LAB L100.1300 12.0-15.0 g/dl Low HGB 11.7 LAB L100.1400 37-47 % Normal HCT 37.9 LAB L100.1500 81-99 fL Normal MCV 84.0 LAB L100.1600 27.0-32.0 pg Low MCH 25.9 LAB L100.1700 32-36 g/gl Low MCHC 30.9 LAB L100.1810 11.6-14.6 % High RDW CV 15.6 LAB L100.1820 35.1-43.9 fl High RDW SD 48.1 LAB L100.1900 150-450 K/mm3 Normal PLT 223 LAB L100.2000 6.2-12.0 fl Normal MPV 11.5 Performed By: #### L101.9900, L100.0500, L500.2500, L501.5200, L501.9520 #### [facility] [address] [place], [address] BASIC METABOLIC Collected: 06/27/2018 Status: F Source: [place] PROFILE (BMP) 10:24 AM [facility] REPOSITORY TYPE CODE TESTS RESULT OUT OF RANGE REFERENCE UNITS LAB L501.0100 74-106 mg/dL High GLU 128 Result Comment: Fasting Glucose result greater than or equal to 126 mg/dL suggests DIABETES MELLITUS per A.D.A. criteria. Please note revised GLUCOSE reference range effective 2017. LAB L501.1000 7-18 mg/dL Normal BUN 15 LAB L501.1100 0.55-1.02 mg/dL Normal CREAT,SERUM 0.97 Result Comment: The validity of the calculated GFR AND GFRAA in patients over 70 years has not been determined. Clinical correlation is essential. LAB L501.1110 >60 mL/min Normal EST GFR 60 Result Comment: Non- GFR Calc LAB L501.1115 >60 mL/min Normal EST GFR - AA 73 Result Comment: GFR Calc LAB L501.1300 10-20 RATIO Normal BUN/CRE 15.4 LAB L501.2200 8.5-10.1 mg/dL CA Normal 9.0 LAB L501.5300 136-145 mmol/L NA Normal 143 LAB L501.5600 3.5-5.1 mmol/L K Normal 4.6 LAB L501.5900 98-107 mmol/L CL Normal 106 LAB L501.6100 21.0-32.0 mmol/L Normal CO2 27.0 LAB L501.6200 5-15 Normal GAP 10 Performed By: #### L101.9900, L100.0500, L500.2500, L501.5200, L501.9520 #### [facility] [address] [place], [address] MAGNESIUM Collected: 06/27/2018 Status: F Source: [place] 10:24 AM [facility] REPOSITORY TYPE CODE TESTS RESULT OUT OF RANGE REFERENCE UNITS LAB L501.5200 1.6-2.6 mg/dL Normal MG 2.0 Performed By: #### L101.9900, L100.0500, L500.2500, L501.5200, L501.9520 #### [facility] [address] [place], [address] THYROID STIM HORMONE Collected: 06/27/2018 Status: F Source: [place] (TSH) 10:24 AM [facility] REPOSITORY TYPE CODE TESTS RESULT OUT OF RANGE REFERENCE UNITS LAB L501.9520 0.358-3.74 uIU/mL Normal TSH 1.97 Performed By: #### L101.9900, L100.0500, L500.2500, L501.5200, L501.9520 #### [facility] [address] [place], [address] VITAMIN D,25 HYDROXY Collected: 06/27/2018 Status: F Source: [place] 10:24 AM [facility] REPOSITORY Order Comment: ADD ON TO WG3 3N GOLD TOP DRAWN TYPE CODE TESTS RESULT OUT OF RANGE REFERENCE UNITS LAB L506.1000 29.95-100.01 ng/mL Normal Vitamin D 41.9 25-OH Result Comment: Vitamin D 25(OH) Status Range Deficiency <20 ng/mL (50nmol/L) Insuffciency 20 - 30 ng/mL (50 - 75 nmol/L) Sufficiency 30 - 100 ng/mL (75 - 250 nmol/L) Toxicity >100 ng/mL (>250 nmol/L) Performed By: #### L506.1000 #### [facility] [address] [place], [address] ABD INC DECUB Observed: 06/25/2018 Status: F Source: [place] AND/OR ERECT 4:22 PM [facility] REPOSITORY [facility] Imaging Services [address] [place] [address] Abd Inc Decub and/or Erect MR#: [id number] Acct: [id number] Name: KERWIN VICK Rep #: [id number] : 1950 F 67 From: Sarah Rain MD PCP: Sivakumar Berger MD Status: REG CLI Study: Abd Inc Decub and/or Erect Date of Exam: 06/25/18 Exam# [id number] Ordering Dr: Keaton Berger MD STUDY: X-RAY - ABDOMEN/PELVIS REASON FOR EXAM: Female, 67 years old. Pain TECHNIQUE: 4 AP supine views of the abdomen and pelvis. COMPARISON: 2014 CT scan abdomen and pelvis FINDINGS: Lung bases are out of the [id number]. There is a focus of radiopaque material within the right midline abdomen stable since the prior study. There are at least 2 stones in the right upper quadrant distant the livers and short silhouette measuring at least 5.5 mm. There is moderate stool within the colon. There is no demonstrated free abdominal air. The visualized liver, spleen and kidneys are grossly normal in size and morphology. There are calcified phleboliths in the pelvis. There is a right hip arthroplasty. There is degenerative change in the thoracolumbar spine. RAD/Abd Inc Decub and/or Erect IMPRESSION: Moderate constipation. Status post right hip arthroplasty. Cholelithiasis similar to prior study. Electronically Signed: Sarah Rain MD at 2:48 EST Tel , Service support , CC: Sivakumar Berger MD Apparel Stock Checker: Signed COMPREHENSIVE METABOLIC Collected: 04/09/2018 Status: F Source: [facility] 9:26 AM [facility] REPOSITORY TYPE CODE TESTS RESULT OUT OF RANGE REFERENCE UNITS LAB L501.0100 74-106 mg/dL High GLU 108 Result Comment: Fasting Glucose result from 100 to 125 mg/dL suggests IMPAIRED HOMEOSTASIS per A.D.A. criteria. Please note revised GLUCOSE reference range effective 2017. LAB L501.1000 7-18 mg/dL Normal BUN 15 LAB L501.1100 0.55-1.02 mg/dL Normal CREAT,SERUM 0.96 Result Comment: The validity of the calculated GFR AND GFRAA in patients over 70 years has not been determined. Clinical correlation is essential. LAB L501.1110 >60 mL/min Normal EST GFR 61 Result Comment: Non- GFR Calc LAB L501.1115 >60 mL/min Normal EST GFR - AA 74 Result Comment: GFR Calc LAB L501.1300 10-20 RATIO Normal BUN/CRE 15.6 LAB L501.1500 6.4-8.2 g/dL T Normal PROT 7.2 LAB L501.1800 3.2-5.0 g/dL Normal ALB 3.3 LAB L501.1950 2.2-4.2 g/dL Normal GLOB 3.9 LAB L501.2000 0.9-2.4 RATIO Low A/G 0.8 LAB L501.2200 8.5-10.1 mg/dL CA Normal 9.2 LAB L501.4100 15-37 U/L Normal AST 29 LAB L501.4305 45-117 U/L High ALK P 148 LAB L501.4405 13-56 U/L Normal ALT 36 LAB L501.4600 0.20-1.00 mg/dL T Normal BILI 0.20 LAB L501.5300 136-145 mmol/L NA Normal 143 LAB L501.5600 3.5-5.1 mmol/L K Normal 4.1 LAB L501.5900 98-107 mmol/L CL Normal 104 LAB L501.6100 21.0-32.0 mmol/L Normal CO2 29.0 LAB L501.6200 5-15 Normal GAP 10 Performed By: #### L500.4050, L500.4100 #### [facility] [address] [place], [address] LIPID PROFILE Collected: 04/09/2018 Status: F Source: [place] 9:26 AM [facility] REPOSITORY TYPE CODE TESTS RESULT OUT OF RANGE REFERENCE UNITS LAB L501.4900 200 mg/dL Normal CHOL 187 Result Comment: <200 mg/dL Desirable 200-240 mg/dL Borderline >240 mg/dL High Risk LAB L501.5000 mg/dL Normal TRIG 164 Result Comment: The drugs N-Acetylcysteine and Metamizole may falsely depress this assay. Serum Triglycerides Reference Interval Normal <150 mg/dL Borderline high 150 - 199 mg/dL High 200 - 499 mg/dL Very High > or = 500 mg/dL LAB L501.6400 mg/dL Low HDL 37 Result Comment: The drugs N-Acetylcysteine and Metamizole may falsely depress this assay. Reference Range HDL <40 mg/dL Low HDL Cholesterol HDL >or= 60 mg/dL High HDL Cholesterol LAB L501.6500 0-130 mg/dL Normal LDL 117 LAB L501.6600 5-40 mg/dL Normal VLDL 33 Performed By: #### L500.4050, L500.4100 #### [facility] [address] [facility] [place], [place], [id number] THYROID STIM HORMONE Collected: 04/09/2018 Status: F Source: [place] (TSH) 9:26 AM [facility] REPOSITORY TYPE CODE TESTS RESULT OUT OF RANGE REFERENCE UNITS LAB L501.9520 0.358-3.74 uIU/mL Normal TSH 0.78 Performed By: #### L501.9520 #### [facility] [address] [facility] [facility] [place], [place], [address] MICROALB:CREAT Collected: 04/09/2018 Status: F Source: [place] RATIO,RANDOM UR 9:26 AM [facility] REPOSITORY TYPE CODE TESTS RESULT OUT OF RANGE REFERENCE UNITS LAB L501.1200 NO RANGE EST. mg/dL Normal UR CREAT 131.00 LAB L502.0500 NO RANGE EST. mg/L Normal 6.0 MICROALBUMIN ,UR LAB L502.0600 <30 mg/g CRE mg/g CRE Normal 4.6 MALB:CREAT Performed By: #### L502.0250 #### [facility] [address] [place], [place], [address] DISCHARGE SUMMARY Observed: 12/09/2017 Status: F Source: [place] 12:47 PM [facility] REPOSITORY [facility] Medical Records Department [address] [place] [address] Discharge Summary 12/08/17 1602 MR#: [id number] Acct: [id number] Name: KERWIN VICK Rep #: [id number] : 1950 67 From: Zita LOPESC PCP: Sivakumar Berger MD Status: DIS IN Y Location: [place] [address] Rehab Discharge Summary DATE OF ADMISSION: 11/29/17 DATE OF DISCHARGE: 12/09/17 - Rehab Diagnosis Right Total Hip Discharge Diet: No Restrictions Discharge Activity: May Not Drive - Until cleared by Orthopedic Surgeon, May not drive while taking narcotic pain medications., May Shower, Use Walker, - - not Soak in a Tub Bath until cleared by Orthopedic Surgeon Weight Bearing Status: Weight bearing as tolerated Call your doctor if your incision/area has: Increased Pain/ Swelling, Increased Redness, Foul Smelling Discharge, Swelling at the incision site Call your doctor if you observe: Fever of 101 or Higher, Coldness, Increased Pain, Numbness or Tingling, Change in Color, Inability to urinate, Inability to have a bowel movement, Using more than one pad per hour, Shortness of breath, Dizziness, Fainting spells, Swelling in the ankles, Chest pain, Prolonged hiccoughing, Increased palpitations (irregular heartbeat), Calf discomfort, Uncontrolled pain Home Medications: Medications to take at Discharge Amitriptyline HCl [Elavil] 25 mg PO QHS 10/10/13 Tizanidine HCl [Zanaflex] 4 mg PO DAILY 10/10/13 Zolpidem Tartrate [Ambien Cr] 10 mg PO QHS PRN PRN 10/10/13 Calcium Carbonate/Vitamin D3 [Calcium 600-Vit D3 400 Tablet] 1 each PO DAILY 10/29/13 Omeprazole 1 tab PO DAILY 10/29/13 Metformin HCl [Glucophage] 500 mg PO DAILY 10/26/15 Ferrous Sulfate [Iron] 325 mg PO DAILY 11/14/17 L.acidoph,Paracasei, B.lactis [Probiotic] 1 each PO DAILY 11/14/17 Levothyroxine [Synthroid] 75 mcg PO DAILY 11/14/17 Aspirin 325 mg PO BIDCM 11/29/17 Lidocaine [Lidoderm Patch] 1 patch TOPICAL DAILY #30 patch 12/08/17 Ondansetron [Zofran] 8 mg PO Q8H PRN PRN #90 tab 12/08/17 Senna/Docusate Sodium [Senokot-S] 2 tab PO BID #60 tab 12/08/17 traMADol [Ultram] 50 - 100 mg PO Q6H PRN PRN #28 tab 12/08/17 Following Prescrptions Were Given to Patient: traMADol [Ultram] 50 - 100 mg PO Q6H PRN PRN #28 tab PRN Reason: Moderate Pain (4-5/10) Ondansetron [Zofran] 8 mg PO Q8H PRN PRN #90 tab PRN Reason: Nausea Lidocaine [Lidoderm Patch] 1 patch TOPICAL DAILY #30 patch Senna/Docusate Sodium [Senokot-S] 2 tab PO BID #60 tab Primary Care Physician: Keaton Berger MD [Primary Care Provider] - Please Follow Up With: Dr Sharad Berger When: Please Follow Up With: [facility] - Physical therapy Please Follow Up With: Asif Burnett Disposition: Home - With Outpatient Physical therapy Minutes spent on discharge:: 40 Patient Condition:: Good Rehab Course The patient is a 67 year old right handed female who was admitted to the rehab unit for rehabilitation after elective surgery for Right total hip replacement for gradual worsening of right hip arthropathy, on 11/27/[address] [place], with out complications. She has a history of avascular necrosis of the hip, chronic pain 2/2 fibromyalgia and arachnoiditis, Diabetes type II, osteoarthritis, Hypothyroidism, colon cancer in remission since partial colectomy in 2013, hx of C-Diff and Morbid Obesity -> BMI 34.7 2/2 related health conditions of DM II, Osteoarthritis. She became hypotensive this morning, after doing physical therapy, and once she returned to her room, some of her narcotic pain medications were DCd, and she was given a Liter of LR, she is now normotensive, slightly on the high side, will continue to monitor. She also has some nausea and vomiting that she states may be from the narcotics as well. She has had poor PO intake the last few days from this. She lives alone in an apartment, has no steps just a curb area to get into the home. She was previously completely functionally independent, able to do all her own ADLs and was driving and is admitted to the rehab unit in order to restore her previous level of functional independence. With Physical therapy, she is able to walker about 300 feet at standby assist using the walker. She has gone up and down about 10 steps, at supervision level. She is supervision for bed mobility, from going from a sitting to a standing position. With Occupational therapy, she is supervision for her personal care, and toileting. She is able to get on and off the toilet at supervision level. Overall she is doing very well her pain is being managed. The plan is discharge home on MondayDecember 09, with outpatient physical therapy. Meaningful Use Info Meaningful Use Diagnoses (Choose all that apply): None applicable 12/08/17 1637 <Electronically signed by Zita LOPESC> Date Zita Curran ARCHIVAL STUDIES PROFESSOROctavioC 12/09/17 1247<Electronically signed by Armando Hinton MD> Cosigner Signature (if applicable): Date Armando Hinton MD CC: ARCHIVAL STUDIES PROFESSOR Zita Curran; Sivakumar Berger MD; Armando Hinton MD Signed DISCHARGE INSTRUCTION Observed: 12/08/2017 Status: F Source: [place] 4:37 PM [facility] REPOSITORY [facility] Medical Records Department [address] [place] [address] Instructions for Home/Discharge Instructions 12/08/17 1558 MR#: [id number] Acct: [id number] Name: KERWIN VICK Rep #: [id number] : 1950 67 From: Zita Curran NP-C PCP: Sivakumar Berger MD Status: ADM IN - Discharge Diagnoses Reason(s) for Visit for Discharge Instructions: Right Total Hip You will use the following diet at home:: Regular Your food should be the consistency of: Regular Your liquids should be the consistency of: Regular/Thin Discharge Activity: May Not Drive - Until cleared by Orthopedic Surgeon, May not drive while taking narcotic pain medications., May Shower, Use Walker, - - not Soak in a Tub Bath until cleared by Orthopedic Surgeon Weight Bearing Status: Weight bearing as tolerated Call your doctor if your incision/area has: Increased Pain/ Swelling, Increased Redness, Foul Smelling Discharge, Swelling at the incision site Call your doctor if you observe: Fever of 101 or Higher, Coldness, Increased Pain, Numbness or Tingling, Change in Color, Inability to urinate, Inability to have a bowel movement, Using more than one pad per hour, Shortness of breath, Dizziness, Fainting spells, Swelling in the ankles, Chest pain, Prolonged hiccoughing, Increased palpitations (irregular heartbeat), Calf discomfort, Uncontrolled pain Allergies/Adverse Reactions: Allergies codeine Adverse Reaction (Verified 11/14/17 12:57) Upset Stomach bee sting Adverse Reaction (Uncoded 11/14/17 12:57) Anaphylaxis Medications to take at Discharge Amitriptyline HCl [Elavil] 25 mg PO QHS 10/10/13 Tizanidine HCl [Zanaflex] 4 mg PO DAILY 10/10/13 Zolpidem Tartrate [Ambien Cr] 10 mg PO QHS PRN PRN 10/10/13 Calcium Carbonate/Vitamin D3 [Calcium 600-Vit D3 400 Tablet] 1 each PO DAILY 10/29/13 Omeprazole 1 tab PO DAILY 10/29/13 Metformin HCl [Glucophage] 500 mg PO DAILY 10/26/15 Ferrous Sulfate [Iron] 325 mg PO DAILY 11/14/17 L.acidoph,Paracasei, B.lactis [Probiotic] 1 each PO DAILY 11/14/17 Levothyroxine [Synthroid] 75 mcg PO DAILY 11/14/17 Aspirin 325 mg PO BIDCM 11/29/17 Lidocaine [Lidoderm Patch] 1 patch TOPICAL DAILY #30 patch 12/08/17 Ondansetron [Zofran] 8 mg PO Q8H PRN PRN #90 tab 12/08/17 Senna/Docusate Sodium [Senokot-S] 2 tab PO BID #60 tab 12/08/17 traMADol [Ultram] 50 - 100 mg PO Q6H PRN PRN #28 tab 12/08/17 The following prescriptions were given: traMADol [Ultram] 50 - 100 mg PO Q6H PRN PRN #28 tab PRN Reason: Moderate Pain (4-5/10) Ondansetron [Zofran] 8 mg PO Q8H PRN PRN #90 tab PRN Reason: Nausea Lidocaine [Lidoderm Patch] 1 patch TOPICAL DAILY #30 patch Senna/Docusate Sodium [Senokot-S] 2 tab PO BID #60 tab Primary Care Physician: Keaton Berger MD [Primary Care Provider] - Please Follow Up With: Dr Sharad Berger When: Please Follow Up With: [facility] - Physical therapy Please Follow Up With: Asif Burnett Proposed Discharge Date: 12/09/17 12/08/17 1637 <Electronically signed by Zita Curran NP-C> Date Zita Curran NP-C CC: Stephanie White; Sivakumar Berger MD 12 LEAD ELECTROCARDIOGRAM Observed: 12/06/2017 Status: F Source: [place] 3:29 PM [facility] REPOSITORY [facility] Cardiovascular Services [address] [place] [address] [place] [address] 12 Lead EKG 11/27/17 0944 MR#: [id number] Acct: [id number] Name: KERWIN VICK Rep #: [id number] : 1950 67 From: Mahesh Ceballos MD Attending Dr: Damien Clarke DO Status: DIS IN Ordering Dr: Charan Contreras MD Date: 11/27/17 Location: [facility] Sex: F C Admitted: 11/27/17 Test Reason : CHEST PAIN-POSTOP Blood Pressure : / mmHG Vent. Rate : 091 BPM Atrial Rate : 091 BPM P-R Int : 206 ms QRS Dur : 072 ms QT Int : 394 ms P-R-T Axes : 061 029 022 degrees QTc Int : 484 ms Normal sinus rhythm Normal ECG Confirmed by TUCKER JAUREGUI, MAHESH ([id number]), international editorial producer PARKER DRAPER ([id number]) on 12/06/2017 3:28:53 PM Referred By: Damien Clarke Confirmed By:MAHESH CEBALLOS MD 12/06/17 1528 Date Mahesh Ceballos MD CC: Charan Contreras MD; Sivakumar Berger MD; Damien Clarke DO Signed BEDSIDE GLUCOSE Collected: 11/30/2017 Status: F Source: [place] 12:05 PM [facility] REPOSITORY TYPE CODE TESTS RESULT OUT OF RANGE REFERENCE UNITS LAB L501.080 70-110 mg/dL Normal BEDSIDE GLU 104 Result Comment: MANAGEMENT OF PATIENT CARE PER NURSING PROTOCOL Performed By: #### L501.080 #### [facility] Point of Care [address] [place] [address] H AND P W/ COSIGN Observed: 11/30/2017 Status: F Source: [place] 9:55 AM [facility] REPOSITORY [facility] Medical Records Department [address] [place] [address] H AND P w/ Cosign 11/29/17 1612 MR#: [id number] Acct: [id number] Name: KERWIN VICK Rep #: [id number] : 1950 67 From: Zita Curran ARCHIVAL STUDIES PROFESSOR-C PCP: Sivakumar Berger MD Status: ADM IN Location: [id number] ADDENDUM by Ann Hay MD on 11/30/17 at 0955 Code Visit I have personally examined the patient at bedside. Please see TIFFANIE Curran's note as below for further complete details. I have discussed the management plan for the patient in detail with TIFFANIE Curran and please see the plan as noted below, 67 yr F with PMH DM, OA, hypothyroidism, H/O Colon Cancer, H/O C diff, avascular necrosis of hip admitted to [facility] for debility s/p right total hip arthroplasty for > 3 hrs therapy daily, with a goal of returning back home at or near her prior level of functional independence, GI/DVT prophylaxis, PT/OT, fall precautions. Further medical management per hospitalist recommendations. Better pain control and BP control. Inpatient E AND M: [id number] Init Hosp L3 11/30/17 0955 <Electronically signed by Darinel Hay MD> Date Darinel Hay MD cc: TIFFANIE Curran; Ann Hay MD; Sivakumar Berger MD * Signed History of Present Illness Date of Admission: 11/29/17 Chief Complaint: Right Total Hip Replacement The patient is a 67 year old right handed female who was admitted to the rehab unit for rehabilitation after elective surgery for Right total hip replacement for gradual worsening of right hip arthropathy, on 11/27/[address] Damien Clarke, with out complications. She has a history of avascular necrosis of the hip, chronic pain 2/2 fibromyalgia and arachnoiditis, Diabetes type II, osteoarthritis, Hypothyroidism, colon cancer in remission since partial colectomy in 2013, hx of C-Diff and Morbid Obesity -> BMI 34.7 2/2 related health conditions of DM II, Osteoarthritis. She became hypotensive this morning, after doing physical therapy, and once she returned to her room, some of her narcotic pain medications were DCd, and she was given a Liter of LR, she is now normotensive, slightly on the high side, will continue to monitor. She also has some nausea and vomiting that she states may be from the narcotics as well. She has had poor PO intake the last few days from this. She lives alone in an apartment, has no steps just a curb area to get into the home. She was previously completely functionally independent, able to do all her own ADLs and was driving and is admitted to the rehab unit in order to restore her previous level of functional independence. Past Medical History Past Medical History (Chronic Problems): Chronic Problems Colon cancer (Chronic) Fibromyalgia (Chronic) Allergies codeine Adverse Reaction (Verified 11/14/17 12:57) Upset Stomach bee sting Adverse Reaction (Uncoded 11/14/17 12:57) Anaphylaxis Home Medications: Ambulatory Orders Medication Instructions Recorded Amitriptyline HCl [Elavil] 25 mg PO QHS 10/10/13 Tizanidine HCl [Zanaflex] 4 mg PO DAILY 10/10/13 Surgical History: - - partial colectomy in 2013 Psychiatric History: No pertinent psych hx CARPENTER PROTOTYPE History: No pertinent CARPENTER PROTOTYPE history Lives: Alone Smoking Status: Never smoker Alcohol: None Drugs: None Review of Systems Constitutional: Denies: Chills, Fever, Weight Change HEENT: Denies: Head Aches, Sinus Congestion, Sinus Drainage Cardiovascular: Denies: Chest Pain, Palpitations Respiratory: Denies: Cough, Shortness of breath at rest, Sputum production Gastrointestinal: Denies: Abdominal Pain, Nausea, Vomiting Genitourinary: Denies: Dysuria Musculoskeletal: Denies: Joint Pain, Joint Tenderness Skin: Denies: Rash, Wounds Neurological: Denies: Numbness, Tingling, Focal weakness Psychiatric: Denies: Anxiety, Depression, Homicidal Ideations, Suicidal Ideations Hematologic/ Lymphatic: Denies: Easy Bruising, Easy Bleeding VTE Information - Inpt Only VTE Present on Admission: No VTE Mechan Device Prophylaxis: SCD's, Knee High LAWANDA Hose VTE Pharm Prophylaxis ordered?: Yes - Physical Exam General: Alert, Oriented x3, Cooperative HEENT: Atraumatic, PERRLA, EOMI, Normocephalic Neck: Supple, No JVD, Negative Carotid Bruits Lungs: Clear to auscultation, Normal air movement Cardiovascular: Regular rate, No murmurs Abdomen: Bowel Sounds Present, Soft, Non Tender Extremities: No edema, Capillary Refill Less than 3 Seconds Skin: No rashes, No breakdown Musculoskeletal: No Tenderness to Palpation of Joints or Extremities Neurological: Cranial nerves II-XII grossly intact Psych/Mental Status: Normal Affect, Appropriate, Alert and oriented to time, place, person, mood and affect Vital Signs Temp Pulse Resp BP Pulse Ox 97.9 F 93 18 147/66 H 100 11/29/17 15:18 11/29/17 15:18 11/29/17 15:18 11/29/17 15:18 11/29/17 15:18 Oxygen Delivery Method Room Air Weight: 89.1 kg Body Mass Index (BMI) 34.7 Active Medications Bisacodyl (Dulcolax) 10 mg RECTAL .PRN X 1 PRN PRN Reason: Constipation Magnesium Hydroxide (Milk Of Magnesia) 30 ml PO .PRN X 1 PRN PRN Reason: Constipation Ondansetron HCl (Zofran) 8 mg PO Q8H PRN PRN PRN Reason: NAUSEA Senna/Docusate Sodium (Senokot-S, Shelbi-Colace) 2 tablet PO BID RENE Assessment/Plan Debility s/p Right Total Hip Replacement, complicated by Osteoarthritis, DM type II, and Hypothyroidism . Goal of rehab is alevism of functional independence. Plan: - Physical therapy for gait and balance - Occupational Therapy for ADLs - As needed analgesics - Bowel protocol - DVT prophylaxis: SCDs, ASA 325mg BID x 30 days per Ortho - Hx: Hyperthyroid - continue home dose of Synthroid - Diabetes type 2 => continue home medication of Metformin, mild S/S, AC/HS Accu-checks - Morbid Obesity -> BMI 34.7 2/2 related health conditions of DM II, Osteoarthritis, => improve glycemic control. carb controlled diet. Discussed weight Loss, dieting and exercise when well enough to do so. Discussed the risk associated with obesity and the benefits of weight loss. - s/p right total hip - Incision C/D/I, Evangelist and dressing removal on 12/08 - hx avascular necrosis. - Nausea with poor po intake - check bmp in am, prn zofran. - CPS/arachnoiditis/fibromyalgia - pt of Dr. Castro. - Hx c diff colitis - Hx of colorectal ca in remission s/p 2013 partial colectomy 11/29/17 1730 <Electronically signed by Zita Curran ARCHIVAL STUDIES PROFESSOR-C> Date Zita Curran ARCHIVAL STUDIES PROFESSOR-C 11/30/17 0941<Electronically signed by Darinel Hay MD> Cosigner Signature (if applicable): Date Darinel Hay MD CC: TIFFANIE Curran; Ann Hay MD; Sivakumar Berger MD Signed BEDSIDE GLUCOSE Collected: 11/30/2017 Status: F Source: [place] 6:43 AM [facility] REPOSITORY TYPE CODE TESTS RESULT OUT OF RANGE REFERENCE UNITS LAB L501.080 70-110 mg/dL Normal BEDSIDE GLU 96 Result Comment: MANAGEMENT OF PATIENT CARE PER NURSING PROTOCOL Performed By: #### L501.080 #### [facility] Point of Care [address] [place], [place] [id number] CBC-COMPLETE BLOOD CNT Collected: 11/30/2017 Status: F Source: [place] NO DIFF 5:25 AM [facility] REPOSITORY TYPE CODE TESTS RESULT OUT OF RANGE REFERENCE UNITS LAB L100.1000 4.4-11.0 K/mm3 Normal WBC 9.4 LAB L100.1200 4.2-5.4 M/mm3 Low RBC 3.65 LAB L100.1300 12.0-15.0 g/dl Low HGB 10.4 LAB L100.1400 37-47 % Low HCT 33.2 LAB L100.1500 81-99 fL Normal MCV 91.0 LAB L100.1600 27.0-32.0 pg Normal MCH 28.5 LAB L100.1700 32-36 g/gl Low MCHC 31.3 LAB L100.1810 11.6-14.6 % High RDW CV 14.8 LAB L100.1820 35.1-43.9 fl High RDW SD 48.2 LAB L100.1900 150-450 K/mm3 Normal PLT 208 LAB L100.2000 6.2-12.0 fl Normal MPV 11.7 Performed By: #### L100.0500 #### [facility] [address] [place], [place], [id number] BASIC METABOLIC Collected: 11/30/2017 Status: F Source: [place] PROFILE (BMP) 5:25 AM [facility] REPOSITORY TYPE CODE TESTS RESULT OUT OF RANGE REFERENCE UNITS LAB L501.0100 74-106 mg/dL Normal GLU 86 Result Comment: Please note revised GLUCOSE reference range effective 2017. LAB L501.1000 7-18 mg/dL Normal BUN 11 LAB L501.1100 0.55-1.02 mg/dL Normal CREAT,SERUM 0.85 Result Comment: The validity of the calculated GFR AND GFRAA in patients over 70 years has not been determined. Clinical correlation is essential. LAB L501.1110 >60 mL/min Normal EST GFR 71 Result Comment: Non- GFR Calc LAB L501.1115 >60 mL/min Normal EST GFR - AA 85 Result Comment: GFR Calc LAB L501.1255 ml/min Normal Estimated CRCL 51.67 LAB L501.1300 10-20 RATIO Normal BUN/CRE 13.0 LAB L501.2200 8.5-10 mg/dL Normal .1 CA 8.9 LAB L501.5300 136-14 mmol/L Normal 5 NA 141 LAB L501.5600 3.5-5. mmol/L Normal 1 K 4.1 LAB L501.5900 98-107 mmol/L Normal CL 104 LAB L501.6100 21.0-3 mmol/L Normal 2.0 CO2 30.0 LAB L501.6200 5-15 Normal GAP 7 Performed By: #### L500.2500, L501.5200 #### [facility] [address] [facility] [place], [place], [address] MAGNESIUM Collected: 11/30/2017 Status: F Source: [place] 5:25 AM [facility] REPOSITORY TYPE CODE TESTS RESULT OUT OF RANGE REFERENCE UNITS LAB L501.5200 1.6-2.6 mg/dL Normal MG 2.0 Performed By: #### L500.2500, L501.5200 #### [facility] [address] [facility] [place], [address] PHOSPHORUS Collected: 11/30/2017 Status: F Source: [place] 5:25 AM [facility] REPOSITORY TYPE CODE TESTS RESULT OUT OF RANGE REFERENCE UNITS LAB L501.2300 2.5-4.9 mg/dL Normal PHOS 2.8 Performed By: #### L501.2300 #### [facility] [address] [facility] [place], [address] BEDSIDE GLUCOSE Collected: 11/29/2017 Status: F Source: [place] 9:26 PM [facility] REPOSITORY TYPE CODE TESTS RESULT OUT OF RANGE REFERENCE UNITS LAB L501.080 70-110 mg/dL Normal BEDSIDE GLU 87 Result Comment: MANAGEMENT OF PATIENT CARE PER NURSING PROTOCOL Performed By: #### L501.080 #### [facility] Point of Care [address] [place] [address] BEDSIDE GLUCOSE Collected: 11/29/2017 Status: F Source: [place] 4:57 PM [facility] REPOSITORY TYPE CODE TESTS RESULT OUT OF RANGE REFERENCE UNITS LAB L501.080 70-110 mg/dL Normal BEDSIDE GLU 84 Result Comment: MANAGEMENT OF PATIENT CARE PER NURSING PROTOCOL Performed By: #### L501.080 #### [facility] Point of Care [address] [place] [address] DISCHARGE INSTRUCTION Observed: 11/29/2017 Status: F Source: [place] 12:55 PM [facility] REPOSITORY [facility] Medical Records Department [address] [place] [address] Instructions for Home/Discharge Instructions 11/29/17 1246 MR#: [id number] Acct: [id number] Name: KERWIN VICK Rep #: [id number] : 1950 67 From: Magdy Burnett PA-C PCP: Sivakumar Berger MD Status: ADM IN Discharge Diet: No Restrictions Discharge Activity: May Not Drive, May Shower, Use Walker May shower in (days): 2 - only if incision is dry and without drainage. Do NOT soak/submerge in tub/pool/cai/stream/hot tub. May resume sexual activity in: No Restrictions Ice area for (Minutes): 20 - every hour while awake Weight Bearing Status: Weight bearing as tolerated Lifting Restrictions: 20 pounds Elevate: Operative Extremity Call your doctor if your incision/area has: Continuous Slow Oozing, Sudden Increased Bleeding, Increased Pain/ Swelling, Increased Redness, Foul Smelling Discharge Call your doctor if you observe: Fever of 101 or Higher, Inability to urinate, Inability to have a bowel movement, Shortness of breath, Fainting spells, Chest pain, Increased palpitations (irregular heartbeat), Calf discomfort, Uncontrolled pain Change Dressing in (Days):: 0 - Change daily and as needed. Remove Dressing in (days):: 9 - remove dressing when evangelist removed 12-08-2017 Cleanse incision/area with: Soap AND Water Allergies/Adverse Reactions: Allergies codeine Adverse Reaction (Verified 11/14/17 12:57) Upset Stomach bee sting Adverse Reaction (Uncoded 11/14/17 12:57) Anaphylaxis Medications to take at Discharge Amitriptyline HCl [Elavil] 25 mg PO QHS 10/10/13 Tizanidine HCl [Zanaflex] 4 mg PO DAILY 10/10/13 Zolpidem Tartrate [Ambien Cr] 10 mg PO QHS PRN PRN 10/10/13 Calcium Carbonate/Vitamin D3 [Calcium 600-Vit D3 400 Tablet] 1 each PO DAILY 10/29/13 Omeprazole 1 tab PO DAILY 10/29/13 Metformin HCl [Glucophage] 500 mg PO DAILY 10/26/15 Ferrous Sulfate [Iron] 325 mg PO DAILY 11/14/17 L.acidoph,Paracasei, B.lactis [Probiotic] 1 each PO DAILY 11/14/17 Levothyroxine [Synthroid] 75 mcg PO DAILY 11/14/17 Lidocaine [Lidoderm Patch] 1 patch TOPICAL DAILY 11/14/17 Acetaminophen [Tylenol] 1,000 mg PO Q8 #90 tab 11/29/17 Aspirin 325 mg PO BIDCM #60 tab 11/29/17 traMADol [Ultram] 50 mg PO Q6H PRN PRN 7 Days #60 tab 11/29/17 The following prescriptions were given: traMADol [Ultram] 50 mg PO Q6H PRN PRN 7 Days #60 tab PRN Reason: Moderate Pain (4-5/10) Acetaminophen [Tylenol] 1,000 mg PO Q8 #90 tab Aspirin 325 mg PO BIDCM #60 tab Primary Care Physician: Keaton Berger MD [Primary Care Provider] - Please Follow Up With: Magdy Burnett PA-C When: as scheduled (see pink sheet) 11/29/17 3165 <Electronically signed by Magdy Burnett PA-C> Date Magdy Burnett PA-C CC: Sivakumar Berger MD BEDSIDE GLUCOSE Collected: 11/29/2017 Status: F Source: [place] 11:07 AM [facility] REPOSITORY TYPE CODE TESTS RESULT OUT OF REFERENCE UNITS RANGE LAB L501.080 70-110 mg/dL High BEDSIDE GLU 122 Result Comment: MANAGEMENT OF PATIENT CARE PER NURSING PROTOCOL Performed By: #### L501.080 #### [facility] Point of Care [address] [place] [address] CBC-COMPLETE BLOOD CNT Collected: 11/29/2017 Status: F Source: [place] NO DIFF 5:24 AM [facility] REPOSITORY TYPE CODE TESTS RESULT OUT OF RANGE REFERENCE UNITS LAB L100.1000 4.4-11.0 K/mm3 Normal WBC 8.1 LAB L100.1200 4.2-5.4 M/mm3 Low RBC 3.61 LAB L100.1300 12.0-15.0 g/dl Low HGB 10.6 LAB L100.1400 37-47 % Low HCT 32.7 LAB L100.1500 81-99 fL Normal MCV 90.6 LAB L100.1600 27.0-32.0 pg Normal MCH 29.4 LAB L100.1700 32-36 g/gl Normal MCHC 32.4 LAB L100.1810 11.6-14.6 % High RDW CV 14.9 LAB L100.1820 35.1-43.9 fl High RDW SD 48.2 LAB L100.1900 150-450 K/mm3 Normal PLT 156 LAB L100.2000 6.2-12.0 fl Normal MPV 11.6 Performed By: #### L100.0500 #### [facility] [address] [place], [address] CBC-COMPLETE BLOOD CNT Collected: 11/28/2017 Status: F Source: [place] NO DIFF 5:50 AM [facility] REPOSITORY TYPE CODE TESTS RESULT OUT OF RANGE REFERENCE UNITS LAB L100.1000 4.4-11.0 K/mm3 Normal WBC 7.5 LAB L100.1200 4.2-5.4 M/mm3 Low RBC 3.82 LAB L100.1300 12.0-15.0 g/dl Low HGB 10.8 LAB L100.1400 37-47 % Low HCT 34.1 LAB L100.1500 81-99 fL Normal MCV 89.3 LAB L100.1600 27.0-32.0 pg Normal MCH 28.3 LAB L100.1700 32-36 g/gl Low MCHC 31.7 LAB L100.1810 11.6-14.6 % High RDW CV 15.2 LAB L100.1820 35.1-43.9 fl High RDW SD 49.4 LAB L100.1900 150-450 K/mm3 Normal PLT 159 LAB L100.2000 6.2-12.0 fl Normal MPV 11.3 Performed By: #### L100.0500, L500.2500 #### [facility] [address] [place], [address] BASIC METABOLIC Collected: 11/28/2017 Status: F Source: [place] PROFILE (BMP) 5:50 AM [facility] REPOSITORY TYPE CODE TESTS RESULT OUT OF RANGE REFERENCE UNITS LAB L501.0100 74-106 mg/dL High GLU 108 Result Comment: Fasting Glucose result from 100 to 125 mg/dL suggests IMPAIRED HOMEOSTASIS per A.D.A. criteria. Please note revised GLUCOSE reference range effective 2017. LAB L501.1000 7-18 mg/dL Normal BUN 9 LAB L501.1100 0.55-1.02 mg/dL Normal CREAT,SERUM 0.85 Result Comment: The validity of the calculated GFR AND GFRAA in patients over 70 years has not been determined. Clinical correlation is essential. LAB L501.1110 >60 mL/min Normal EST GFR 70 Result Comment: Non- GFR Calc LAB L501.1115 >60 mL/min Normal EST GFR - AA 85 Result Comment: GFR Calc LAB L501.1255 ml/min Normal Estimated CRCL 51.67 LAB L501.1300 10-20 RATIO Normal BUN/CRE 10.5 LAB L501.2200 8.5-10 mg/dL Normal .1 CA 8.7 LAB L501.5300 136-14 mmol/L Normal 5 NA 142 LAB L501.5600 3.5-5. mmol/L Normal 1 K 3.9 LAB L501.5900 98-107 mmol/L Normal CL 105 LAB L501.6100 21.0-3 mmol/L Normal 2.0 CO2 29.0 LAB L501.6200 5-15 Normal GAP 8 Performed By: #### L100.0500, L500.2500 #### [facility] [address] [place], [address] OPERATIVE REPORT Observed: 11/27/2017 Status: F Source: [place] 8:32 AM [facility] REPOSITORY [facility] Medical Records Department [address] [place] [address] Operative Report 11/27/17 0829 MR#: [id number] Acct: [id number] Name: KERWIN VICK Rep #: [id number] : 1950 67 From: Damien Clarke DO PCP: Sivakumar Berger MD Status: ADM IN Y Location: [facility] [id number] Report of Operation Date of Procedure: 11/27/17 Pre-Operative Diagnosis: Severe end-stage osteoarthritis right hip Post-Operative Diagnosis: Severe end-stage osteoarthritis right hip Surgery/Procedure Performed:: Total hip arthroplasty right Description of Surgical Findings:: Eburnation of bone, periarticular osteophytes consistent with osteoarthritis mail handler sorter: Magdy Burnett Type of Anesthesia:: Spinal Anesthesiologist: Brian Lau Special Medications: txa Estimated Blood Loss (mL): 150 Fluids Replaced: See anesthesia report Description of Procedure: Implants: Nabeel Accolade 2 size 3 132 , 50 mm MDM cup with the appropriate size modular components Surgical indications: Patient has severe end-stage osteoarthritic changes in the right hip. They have failed conservative measures including activity modification, anti-inflammatories, use of assistive devices. This to the point where the pain affects their ability to enjoy life and complete activities of daily living without discomfort. Patient has elected to undergo the above procedure Procedure description: The patient was greeted in the preoperative area the right hip was marked with surgical marker preoperative antibiotics administered. The patient was then taken to or suite in stable condition. Preoperative tranexamic acid was also utilized. Once the patient was placed in the supine position on the operating room table and once adequate anesthesia was obtained they were then placed in the lateral decubitus position with the surgical hip facing the field. All bony prominences were well-padded. A commercial hip position was utilized. The appropriate extremity was then prepped and draped in usual sterile fashion. Ioban was placed on the skin. Surgical timeout was performed and surgery was commenced. Standard anterolateral approach to the hip was then performed incision was planned and carried out with a #10 blade. Dissection was then carried length of the incision to the IT band which was split proximally and distally. A Charnley retractor was then placed for soft tissue retraction exposing the gluteus medius. The hip was then approached through a transgluteal approach and dislocated through an anterior capsulectomy. Severe eburnation of bone was noted periarticular osteophytes were identified consistent with severe end-stage osteoarthritis. A femoral osteotomy was then created approximately 1 fingerbreadth above the lesser trochanter. This was measured and placed on the back table. Once this was complete acetabular retractors were placed anteriorly and posteriorly and a 4 mm Steinmann pin was placed anterior superior aspect of the acetabulum for soft tissue retention. Labrum was then removed from the acetabulum exposing the entire cup of the acetabulum. Sequential reaming was then commenced and the acetabulum was medialized and sequentially widened in order to accommodate appropriate size cup. The acetabular cup was then impacted into position to the appropriate depth referencing approximately 30 inversion 45 of inclination. Excellent purchase was obtained. 2 screws were placed in the cup. MDM metal modular liner was then placed in the locking mechanism of the acetabulum, locking mechanism was engaged and confirmed to be locked. Attention was then turned to the femoral preparation. The hip was placed in the 90/90 position and a lateralizing box osteotome was utilized. Femoral starting awl was used followed by sequential broaching to the appropriate size. Excellent purchase was obtained with the stem no stem subsidence and excellent rotational stability was confirmed. A calcar reamer was then used in the trial head neck was placed on the broach. The hip was then located and taken through full range of motion flexion internal and external rotation as well as extension. Excellent stability was noted no impingement was identified of the components and leg lengths appear to be appropriate. The hip was at this point dislocated and the trial femoral components were removed. The final femoral stem was then implanted and impacted to the appropriate depth. Again excellent purchase was obtained no stem subsidence or rotational instability was noted. The hip was once again trialed and confirmation of leg length and stability was performed. Soft tissue tension also appeared to be appropriate. At this point the hip was redislocated and the trunnion was cleaned and dried meticulously in the appropriate size femoral head was placed on the clean dry trunnion using a 12/14 Proctor taper. The hip was once again relocated and again taken through full range of motion. I did inject a cocktail of postoperative pain medication in the deep and superficial tissues. A quick Betadine bath was performed followed by copious irrigation. Anatomic closure of the gluteus medius and minimus was performed with #1 Vicryl [id number] type fashion followed by closure of the IT band with #1 Vicryl 0 Vicryl was utilized in subcutaneous tissue and surgical evangelist were placed in the skin. A well-padded nonadherent dressing was applied. Patient was taken to PACU in stable condition. No complications were identified. Will follow standard postop protocol for total hip arthroplasty. Patient must use assistive device for ambulation for approximately 6 weeks of the gluteal musculature heals. Physician floral assistant was integral in all portions of this procedure. They assisted with positioning the patient, draping the extremity, holding retractors, closing the wound, and applying the dressing. This was all done under my direct supervision. The physician floral assistant was essential for a successful, efficient surgery. - Complications None known - Admit VTE Documentation VTE Present on Admission: Yes VTE Mechan Device Prophylaxis: Thigh High LAWANDA Hose VTE Pharm Prophylaxis ordered?: Yes 11/27/17 0832 <Electronically signed by Damien Clarke DO> Date Damien Clarke DO CC: Sivakumar Berger MD; Damien Clarke DO Signed HIP MIN 2 VIEWS Observed: 11/27/2017 Status: F Source: DENZEL (PORTABLE) 8:28 AM [facility] REPOSITORY [facility] Imaging Services [address] [place] [address] Hip Min 2 Views (Portable) MR#: [id number] Acct: [id number] Name: KERWIN VICK Rep #: [id number] : 1950 F 67 From: Amor Luevano MD PCP: Sivakumar Berger MD Status: ADM IN Study: Hip Min 2 Views (Portable) Date of Exam: 11/27/17 Exam# [id number] Ordering Dr: Damien Clarke DO STUDY: X-RAY - PELVIS AND RIGHT HIP REASON FOR EXAM: Female, 67 years old. Total hip replacement. TECHNIQUE: Radiological exam, hip, unilateral, with pelvis when performed; 2 or 3 views. COMPARISON: None. FINDINGS: The patient is status post total right hip replacement. There is good alignment. Postoperative soft tissue changes. RAD/Hip Min 2 Views (Portable) IMPRESSION: Status post total hip replacement. There is good alignment. Postoperative soft tissue changes. Electronically Signed: Amor Luevano MD at 10:33 EDT Tel [phone], Service support , CC: Sivakumar Berger MD; Damien Clarke DO Apparel Stock Checker: Signed BEDSIDE GLUCOSE Collected: 11/27/2017 Status: F Source: DENZEL 5:59 AM [facility] REPOSITORY TYPE CODE TESTS RESULT OUT OF REFERENCE UNITS RANGE LAB L501.080 70-110 mg/dL High BEDSIDE GLU 114 Result Comment: MANAGEMENT OF PATIENT CARE PER NURSING PROTOCOL Performed By: #### L501.080 #### [facility] Point of Care [address] [facility] [place] [address] 12 LEAD ELECTROCARDIOGRAM Observed: 11/15/2017 Status: F Source: DENZEL 2:01 PM [facility] REPOSITORY [facility] Cardiovascular Services [address] [place] [address] 12 Lead EKG 11/14/17 1245 MR#: [id number] Acct: [id number] Name: KERWIN VICK Rep #: [id number] : 1950 67 From: Mahesh Ceballos MD Attending Dr: Damien Clarke DO Status: PRE IN Ordering Dr: Damien Clarke DO Date: 11/14/17 Location: [facility] [place] Sex: F C Admitted: Test Reason : Blood Pressure : / mmHG Vent. Rate : 087 BPM Atrial Rate : 087 BPM P-R Int : 156 ms QRS Dur : 082 ms QT Int : 358 ms P-R-T Axes : 038 015 027 degrees QTc Int : 430 ms Normal sinus rhythm Minimal voltage criteria for LVH, may be normal variant Borderline ECG Confirmed by TUCKER JAUREGUI, MAHESH ([id number]), international editorial producer PARKER DRAPER ([id number]) on 11/15/2017 2:00:32 PM Referred By: Damien Clarke Confirmed By:MAHESH CEBALLOS MD 11/15/17 1400 Date Mahesh Ceballos MD CC: Sivakumar Berger MD; Damien Clarke DO Signed PROTHROMBIN TIME W/INR Collected: 11/14/2017 Status: F Source: DENZEL 1:50 PM [facility] REPOSITORY TYPE CODE TESTS RESULT OUT OF RANGE REFERENCE UNITS LAB L300.4150 11.7-14.9 SECONDS Normal PROTIME 13.1 LAB L300.4200 Normal INR 1.0 Performed By: #### L300.3900, L300.4310 #### [facility] [address] [place], [place], [id number] PARTIAL THROMBOPLAST Collected: 11/14/2017 Status: F Source: DENZEL TIME 1:50 PM [facility] REPOSITORY TYPE CODE TESTS RESULT OUT OF RANGE REFERENCE UNITS LAB L300.4310 24.1-36.2 Seconds Normal PTT 28.9 Performed By: #### L300.3900, L300.4310 #### [facility] [address] [place], [place], [id number] HEMOGLOBIN A1C Collected: 11/14/2017 Status: F Source: DENZEL 1:50 PM [facility] REPOSITORY TYPE CODE TESTS RESULT OUT OF RANGE REFERENCE UNITS LAB L501.9985 4.2-6.3 % Normal HGB A1C 6.2 Performed By: #### L501.9985 #### [facility] [address] [place], [place], [id number] LIVER PROFILE Collected: 11/14/2017 Status: F Source: DENZEL 1:50 PM [facility] REPOSITORY TYPE CODE TESTS RESULT OUT OF RANGE REFERENCE UNITS LAB L501.1500 6.4-8.2 g/dL Normal T PROT 7.4 LAB L501.1800 3.2-5.0 g/dL Normal ALB 3.6 LAB L501.1950 2.2-4.2 g/dL Normal GLOB 3.8 LAB L501.4100 15-37 U/L Normal AST 28 LAB L501.4305 45-117 U/L High ALK P 123 LAB L501.4405 13-56 U/L Normal ALT 27 LAB L501.4600 0.20-1.00 mg/dL Normal T BILI 0.50 LAB L501.4700 0.00-0.30 mg/dL Normal D BILI 0.10 Performed By: #### L500.3400 #### [facility] [address] [place], [address] Observed: 11/14/2017 Status: F Source: DENZEL MRSA/SAID SCREEN 1:50 PM [facility] REPOSITORY MRSA/SAID SCRN S. AUREUS S. aureus Negative MRSA MRSA Negative Performed By: #### M100.651 #### [facility] [address] [place], [address] CBC W/DIFF, AUTOMATED Collected: 11/01/2017 Status: F Source: DENZEL 4:38 PM [facility] REPOSITORY Order Comment: Order Date: 11/01/17 Order Info: 0184-1 - CBCD Order Info: 27936-2 - SED TYPE CODE TESTS RESULT OUT OF RANGE REFERENCE UNITS LAB L100.1000 4.4-11.0 K/mm3 Normal WBC 10.8 LAB L100.1200 4.2-5.4 M/mm3 Normal RBC 4.33 LAB L100.1300 12.0-15.0 g/dl Normal HGB 12.2 LAB L100.1400 37-47 % Normal HCT 39.0 LAB L100.1500 81-99 fL Normal MCV 90.1 LAB L100.1600 27.0-32.0 pg Normal MCH 28.2 LAB L100.1700 32-36 g/gl Low MCHC 31.3 LAB L100.1810 11.6-14.6 % High RDW CV 15.8 LAB L100.1820 35.1-43.9 fl High RDW SD 51.9 LAB L100.1900 150-450 K/mm3 Normal PLT 247 LAB L100.2000 6.2-12.0 fl Normal MPV 11.1 LAB L100.2100 47-70 % Normal NEUT% 56.3 LAB L100.2200 19-41 % Normal LY% 35.6 LAB L100.2300 0-10 % Normal MONO% 6.8 LAB L100.2400 0-5 % Normal EO% 0.8 LAB L100.2500 0-1 % Normal BASO% 0.2 LAB L100.2550 0.0-0.9 % Normal IM GRAN % 0.300 Result Comment: IG% - Immature Granulocytes (promyelocytes, myelocytes and metamyelocytes) > 1% indicates that a LEFT SHIFT is Present. LAB L100.2620 2.0-7.7 X10 3/uL Normal Absolute Neut 6.1 LAB L100.2720 0.83-4.51 X10 3/ul Normal Absolute Lymph 3.86 Performed By: #### L100.0100, L101.9900 #### [facility] [address] [place] [address], [id number] ERYTHROCYTE SED RATE Collected: 11/01/2017 Status: F Source: PACOLET 4:38 PM [facility] REPOSITORY Order Comment: Order Date: 11/01/17 Order Info: 0184-1 - CBCD Order Info: 64095-2 - SED TYPE CODE TESTS RESULT OUT OF RANGE REFERENCE UNITS LAB L102.0000 0-30 mm/hr Normal SED RATE 28 Performed By: #### L100.0100, L101.9900 #### [facility] [address] [place], [place], [address] CRP Collected: 11/01/2017 Status: F Source: PACOLET 4:38 PM [facility] REPOSITORY TYPE CODE TESTS RESULT OUT OF RANGE REFERENCE UNITS LAB L501.6710 0.0-3.0 mg/L High 5.96 C-REACTIVE PROT Result Comment: C-Reactive Protein (CRP) provides useful information for the diagnosis, therapy and monitoring of inflammatory processes and associated diseases. For the evaluation of Relative Risk for Cardiovascular Disease, a High Sensitivity CRP (HSCRP) should be ordered. Performed By: #### L501.6710 #### [facility] [address] [place], [address] LOWER EXT JOINT ONLY Observed: 10/31/2017 Status: F Source: PACOLET (ROUTINE) 7:09 AM [facility] REPOSITORY [facility] Imaging Services [address] [place] [address] Lower Ext Joint Only (Routine) MR#: [id number] Acct: [id number] Name: KERWIN VICK Rep #: [id number] : 1950 F 66 From: Abril Draper MD PCP: Sivakumar Berger MD Status: REG CLI Study: Lower Ext Joint Only (Routine) Date of Exam: 10/31/17 Exam# [id number] Ordering Dr: Keaton Berger MD STUDY: MRI RIGHT HIP REASON FOR EXAM: Female, 66 years old. Right-sided hip pain for 3 months. TECHNIQUE: Standardized fat and water weighted pulse sequences were obtained in all 3 orthogonal planes. COMPARISON: None. FINDINGS: There is mild articular narrowing of the hip joint, with less than 50% loss of the hyaline cartilage. There is lateral osteoarthritic spurring of the acetabular rim. There is abnormal signal within the right acetabulum. Normal labrum. There is a confluent abnormal T2 hyperintensity within the right femoral head that may be the result of bone contusion or acute inflammation. There are multifocal areas of abnormal signal in the right femoral neck and proximal right femur. These focal areas of abnormal signal range in size from 3 mm to 15 mm in size. These have abnormal T2 hyperintensity and abnormally decreased T1 signal. There is a small hip effusion. There is a well-circumscribed area of abnormal signal in the subarticular aspect of the superior right femoral head that suggests either sequela of an erosion or avascular necrosis. Normal gluteus minimus, medius and iliopsoas tendons and distal insertions. There is no trochanteric, iliopsoas or iliopectineal bursitis. Normal superior and inferior pubic rami. Normal pubic symphysis. Normal ischial tuberosity. Normal origin of the hamstring tendons. Normal visualized iliac wing, sacroiliac joint, and sacral ala. There are mild degenerative changes of the left hip. There is a right-sided abdominal ovarian cyst measuring 3.3 cm in greatest dimension. The uterus has a grossly normal appearance. MRI/Lower Ext Joint Only (Routine) IMPRESSION: Multifocal areas of abnormal signal within the right acetabulum and femoral head. Differential considerations include sequela of avascular necrosis of the femoral head, bone contusions of the acetabulum and femur, as well as sequela of chronic osteomyelitis. Electronically Signed: Abril Draper MD at 8:50 EDT , Service support , CC: Sivakumar Berger MD Apparel Stock Checker: Signed COMPREHENSIVE METABOLIC Collected: 10/03/2017 Status: F Source: DENZEL DAREN 2:44 PM [facility] REPOSITORY Order Comment: Order Date: 10/03/17 Order Info: 0786-1 - CMP Order Info: 06014-2 - LIPID Order Info: 3016-3 - TSH TYPE CODE TESTS RESULT OUT OF RANGE REFERENCE UNITS LAB L501.0100 74-106 mg/dL Normal GLU 89 Result Comment: Please note revised GLUCOSE reference range effective 2017. LAB L501.1000 7-18 mg/dL Normal BUN 10 LAB L501.1100 0.55-1.02 mg/dL Normal CREAT,SERUM 0.93 Result Comment: The validity of the calculated GFR AND GFRAA in patients over 70 years has not been determined. Clinical correlation is essential. LAB L501.1110 >60 mL/min Normal EST GFR 63 Result Comment: Non- GFR Calc LAB L501.1115 >60 mL/min Normal EST GFR - AA 77 Result Comment: GFR Calc LAB L501.1300 10-20 RATIO Normal BUN/CRE 10.7 LAB L501.1500 6.4-8.2 g/dL T Normal PROT 7.5 LAB L501.1800 3.2-5.0 g/dL Normal ALB 3.5 LAB L501.1950 2.2-4.2 g/dL Normal GLOB 4.0 LAB L501.2000 0.9-2.4 RATIO Normal A/G 0.9 LAB L501.2200 8.5-10.1 mg/dL CA Normal 9.3 LAB L501.4100 15-37 U/L Normal AST 35 LAB L501.4305 45-117 U/L High ALK P 133 LAB L501.4405 13-56 U/L Normal ALT 32 Result Comment: Please note revised ALT reference range effective 2017. LAB L501.4600 0.20-1.00 mg/dL Normal T BILI 0.30 LAB L501.5300 136-145 mmol/L Normal NA 142 LAB L501.5600 3.5-5.1 mmol/L Normal K 4.3 LAB L501.5900 98-107 mmol/L Normal CL 106 LAB L501.6100 21.0-32.0 mmol/L Normal CO2 28.0 LAB L501.6200 5-15 Normal GAP 8 Performed By: #### L500.4050, L500.4100, L501.9520 #### [facility] [address] [place], [address] LIPID PROFILE Collected: 10/03/2017 Status: F Source: PACOLET 2:44 PM [facility] REPOSITORY Order Comment: Order Date: 10/03/17 Order Info: 0786-1 - CMP Order Info: [id number] - LIPID Order Info: 3016-3 - TSH TYPE CODE TESTS RESULT OUT OF RANGE REFERENCE UNITS LAB L501.4900 200 mg/dL High CHOL 226 Result Comment: <200 mg/dL Desirable 200-240 mg/dL Borderline >240 mg/dL High Risk LAB L501.5000 mg/dL Normal TRIG 178 Result Comment: The drugs N-Acetylcysteine and Metamizole may falsely depress this assay. Serum Triglycerides Reference Interval Normal <150 mg/dL Borderline high 150 - 199 mg/dL High 200 - 499 mg/dL Very High > or = 500 mg/dL LAB L501.6400 mg/dL Normal HDL 44 Result Comment: The drugs N-Acetylcysteine and Metamizole may falsely depress this assay. Reference Range HDL <40 mg/dL Low HDL Cholesterol HDL >or= 60 mg/dL High HDL Cholesterol LAB L501.6500 0-130 mg/dL High LDL 146 LAB L501.6600 5-40 mg/dL Normal VLDL 36 Performed By: #### L500.4050, L500.4100, L501.9520 #### [facility] [address] [place], [address] THYROID STIM HORMONE Collected: 10/03/2017 Status: F Source: PACOLET (TSH) 2:44 PM [facility] REPOSITORY Order Comment: Order Date: 10/03/17 Order Info: [id number] - CMP Order Info: [id number] - LIPID Order Info: 3016-3 - TSH TYPE CODE TESTS RESULT OUT OF RANGE REFERENCE UNITS LAB L501.9520 0.358-3.74 uIU/mL Normal TSH 0.69 Performed By: #### L500.4050, L500.4100, L501.9520 #### [facility] [address] [place], [address] HIP 2-3 VIEWS WITH Observed: 08/24/2017 Status: F Source: DENZEL PELVIS 11:55 AM [facility] REPOSITORY [facility] Imaging Services [address] [place] [address] Hip 2-3 Views with Pelvis MR#: [id number] Acct: [id number] Name: KERWIN VICK Carmen Rep #: [id number] : 1950 F 66 From: Amor Luevano MD PCP: Sivakumar Berger MD Status: REG CLI Study: Hip 2-3 Views with Pelvis Date of Exam: 08/24/17 Exam# [id number] Ordering Dr: Tony Castro MD STUDY: X-RAY - PELVIS AND RIGHT HIP REASON FOR EXAM: Female, 66 years old. Right hip pain. TECHNIQUE: Radiological exam, hip, unilateral, with pelvis when performed; 2 or 3 views. COMPARISON: None. FINDINGS: There is a non-specific bowel gas pattern. 2 round small calcifications are seen in the right mid abdomen. These may represent a calcified mesenteric lymph nodes. Normal bilateral iliac wings, sacroiliac joints and visualized sacrum. Normal bilateral superior and inferior pubic rami. Normal pubic symphysis. Normal bilateral ischial tuberosities. Normal visualized femoral head. Normal acetabulum. Normal hip joint. RAD/Hip 2-3 Views with Pelvis IMPRESSION: Normal x-ray examination of the pelvis and hip. Electronically Signed: Amor Luevano MD at 15:59 EST Tel [phone], Service support , CC: Tony Castro MD; Sivakumar Berger MD Apparel Stock Checker: Signed ALLERGIES ALLERGIES DATE TYPE / CODE NAME / CODE REACTION SEVERITY SOURCE 11/14/2017 Drug codeine/F00 Upset Stomach Unknown [place]zel Allergy/303446013(S 7448716(RXN [facility] NOMED CT) OR) Hospital Repository 11/14/2017 Miscellaneous bee sting Anaphylaxis Unknown [place] Allergy/203013985(S [facility] NOMED CT) Hospital Repository ENCOUNTERS ENCOUNTERS ADMIT/DISCHARGE ACCOUNT ADMITTING ENCOUNTER LOCATION SOURCE NUMBER CLASS 07/12/2018 [id number] Ambulatory [place] Denzel 3 [facility] ing:OPBI Repository 06/28/2018 [id number] Ambulatory [place] 7 [facility] ing:MTLAB Repository 06/27/2018 [id number] Ambulatory Denzel Denzel 8 [facility] ing:MTLAB Repository 06/25/2018 [id number] Ambulatory Denzel Denzel 7 [facility] ing:MTRAD Repository 04/09/2018 [id number] Ambulatory Denzel Denzel 6 [facility] ing:MFPLAB Repository 11/29/2017/ [id number] Mary Jane Inpatient Denzel Denzel 8 0 [place] Encounter [facility] ing:RURoom: Repository CD737Jos: 1 11/29/2017 [id number] [place], Ambulatory BMSBuilding:B [place] 6 [place] MS.WIP [facility] Repository 11/27/2017/ [id number] Vince, Inpatient [place] 8 4 Damien Encounter [facility] ing:JW4Ijgk: Repository AF618Dud: 1 11/27/2017/ [id number] Ambulatory BMSBuilding:W Denzel 8 7 [facility] Repository 11/14/2017/ [id number] Ambulatory BMSBuilding:W Denzel 8 3 [facility] Repository 11/01/2017 [id number] Ambulatory [place] Denzel 6 [facility] ing:MTLAB Repository 10/31/2017 [id number] Ambulatory [place] Denzel 3 [facility] ing:MRI Repository 10/03/2017 [id number] Ambulatory [place] 2 [facility] ing:MTLAB Repository 08/24/2017 [id number] Ambulatory [place] 8 [facility] ing:RAD Repository PAYERS PAYERS ENCOUNTER GUARANTOR PAYER SUBSCRIBER SOURCE 07/12/2018 KERWIN Morales Primary KERWIN C Denzel [id number] Insurance:ANTHEM BOREMANDOB: [facility] NANCY DRAPT MEDICARE [facility] [id number] ADVANTAPolicy Number: Repository [id number]: [phone]) [id number] [phone] () Date:[id number] [address]FP: 07/12/2018 Secondary KERWIN C [place] Insurance:MEDICAIDPol BOREMANDOB: [facility] Number: [id number] Hospital [id number] Repository Date:2018-05-09 07/12/2018 Tertiary NOT GIVENUNK Denzel Insurance:SELF PAY [facility] Number: Effective Repository Date:2018-05-09 06/28/2018 KERWIN C Primary KERWIN C [place] [id number] Insurance:ANTHEM BOREMANDOB: [facility] NANCY DRAPT MEDICARE [facility] [id number] ADVANTAPolicy Number: Repository [id number]: (330 [id number] [phone] (HP) Date:6693-48-52TS [address] [place] [address] 35447KR: 06/28/2018 Secondary NOT GIVENUNK [place] Insurance:SELF PAY [facility]: Effective Repository Date:2018-06-28 06/27/2018 KERWIN C Primary KERWIN C Denzel [id number] Insurance:ANTHEM BOREMANDOB: Community NANCY DRAPT MEDICARE SENIOR [id number] ADVANTAPolicy Number: Repository [address]Iqs: (330 [id number] [phone] (HP) Date:6627-72-86MU [address] [place] [address] 15711XT: 06/27/2018 Secondary KERWIN C Denzel Insurance:MEDICAIDPol BOREMANDOB: Community icy Number: [id number] [facility] [id number] Repository Date:2018-06-27 06/27/2018 Tertiary NOT GIVENUNK [place] Insurance:SELF PAY [facility] Number: Effective Repository Date:2018-06-27 06/25/2018 KERWIN C Primary KERWIN C Denzel [id number] Insurance:ANTHEM BOREMANDOB: Community NANCY DRAPT MEDICARE SENIOR [id number] ADVANTAPolicy Number: Repository [id number]: (330) [id number] [phone] (HP) Date:4997-34-89QJ [address] [place] [address] 32543BJ: 06/25/2018 Secondary KERWIN C Denzel Insurance:MEDICAIDPol BOREMANDOB: Community icy Number: [id number] [facility] [id number] Repository Date:2018-06-25 06/25/2018 Tertiary NOT GIVENUNK [place] Insurance:SELF PAY [facility] Number: Effective Repository Date:2018-06-25 04/09/2018 Kerwin C Primary Kerwin C Denzel [id number] Insurance:ANTHEM BoremanDOB: Community NANCY DRAPT MEDICARE SENIOR [id number] ADVANTAPolicy Number: Repository [address]Mru: 330 [id number] [phone] (HP) Date:6811-29-50RR[address] [address]AU: 04/09/2018 Secondary Kerwin C [place] Insurance:MEDICAIDPol BoremanDOB: Community icy Number: [id number] Hospital [id number] Repository Date:2018-04-09 04/09/2018 Tertiary NOT GIVENUNK [place] Insurance:SELF PAY [facility] Number: Effective Repository Date:2018-04-09 11/29/2017 Kerwin C Primary Kerwin C [place] [id number] Insurance:MEDICARE BoremanDOB: Community NANCY DRAPT PART A [facility] [id number] Number: Repository [address]Ecg: 330 [id number] [phone] () Date:2017-11-29 11/29/2017 Secondary Kerwin C Denzel Insurance:MEDICAIDPol BoremanDOB: Community icy Number: [id number] Hospital [id number] Repository Date:2017-11-29 11/29/2017 Tertiary NOT GIVENUNK [place] Insurance:SELF PAY [facility] Number: Effective Repository Date:2017-11-29 11/29/2017 Kerwin C Primary Kerwin C [place] [id number] Insurance:MEDICARE BoremanDOB: Community NANCY DRAPT PART A [facility] [id number] Number: Repository [address]Qhz: 330 [id number] [phone] () Date:2017-11-29 11/29/2017 Secondary Kerwin C Denzel Insurance:MEDICAIDPol BoremanDOB: Community icy Number: [id number] Hospital [id number] Repository Date:2017-11-29 11/29/2017 Tertiary NOT GIVENUNK [place] Insurance:SELF PAY [facility] Number: Effective Repository Date:2017-11-29 11/27/2017 Kerwin C Primary Kerwin C Denzel [id number] Insurance:MEDICARE BoremanDOB: Community NANCY [address]T PART A [facility] [id number], [place] Number: Repository [address]Uom: 330 [id number] [phone] () Date:2017-11-03 11/27/2017 Secondary Kerwin C [place] Insurance:MEDICAIDPol BoremanDOB: Community icy Number: [id number] Hospital [id number] Repository Date:2017-11-03 11/27/2017 Tertiary NOT GIVENUNK [place] Insurance:SELF PAY [facility] Effective Repository Date:2017-11-03 11/27/2017 Kerwin C Primary Kerwin C [place] [id number] Insurance:MEDICARE BoremanDOB: Community NANCY [address]APT PART A [facility] [id number], [place] Number: Repository [address]Mib: 330 [id number] [phone] () Date:2017-11-03 11/27/2017 Secondary Kerwin C Denzel Insurance:MEDICAIDPol BoremanDOB: Community icy Number: [id number] Hospital [id number] Repository Date:2017-11-03 11/27/2017 Tertiary NOT GIVENUNK [place] Insurance:SELF PAY [facility] Number: Effective Repository Date:2017-11-27 11/14/2017 Kerwin C Primary Kerwin C [place] [id number] Insurance:MEDICARE BoremanDOB: Community NANCY [address]APT PART A [facility] [id number], [place] Number: Repository [address]Zxg: 330 [id number] [phone] () Date:2017-11-03 11/14/2017 Secondary Kerwin C Denzel Insurance:MEDICAIDPol BoremanDOB: Community icy Number: [id number] [facility] [id number] Repository Date:2017-11-03 11/14/2017 Tertiary NOT GIVENUNK [place] Insurance:SELF PAY [facility] Number: Effective Repository Date:2017-11-14 11/01/2017 Kerwin C Primary Kerwin C [place] [id number] Insurance:MEDICARE BoremanDOB: Community NANCY DRAPT PART A [facility] [id number], [place] Number: Repository [address]Xua: 330 [id number] [phone] () Date:2017-11-01 11/01/2017 Secondary Kerwin C [place] Insurance:MEDICAIDPol BoremanDOB: Community icy Number: [id number] Hospital [id number] Repository Date:2017-11-01 11/01/2017 Tertiary NOT GIVENUNK [place] Insurance:SELF PAY [facility] Number: Effective Repository Date:2017-11-01 10/31/2017 Kerwin C Primary Kerwin C Denzel [id number] Insurance:MEDICARE BoremanDOB: Community NANCY [address]APT PART A [facility] [id number], [place] Number: Repository [address]Xey: 330 [id number] [phone] () Date:2017-10-24 10/31/2017 Secondary Kerwin C [place] Insurance:MEDICAIDPol BoremanDOB: Community icy Number: [id number] Hospital [id number] Repository Date:2017-10-24 10/31/2017 Tertiary NOT GIVENUNK [place] Insurance:SELF PAY [facility] Number: Effective Repository Date:2017-10-24 10/03/2017 Kerwin C Primary Kerwin C [place] [id number] Insurance:MEDICARE BoremanDOB: Community NANCY DRAPT PART A [facility] [id number], [place] Number: Repository [address]Joe: 330 [id number] [phone] () Date:2017-10-03 10/03/2017 Secondary Kerwin C Denzel Insurance:MEDICAIDPol BoremanDOB: Community icy Number: [id number] [id number] Repository Date:2017-10-03 10/03/2017 Tertiary NOT GIVENUNK [place] Insurance:SELF PAY [facility] Effective Repository Date:2017-10-03 08/24/2017 Kerwin C Primary Kerwin C Denzel [id number] Insurance:MEDICARE BoremanDOB: Count includes the [facility] GWYN PART A [facility] [id number] [address] Number: Repository [id number]: [phone] [phone] () Date:2017-08-24 08/24/2017 Secondary Kerwin C Denzel Insurance:MEDICAIDPol [facility] HealthmanDOB: [facility] Number: [id number] [id number] Repository Date:2017-08-24 08/24/2017 Tertiary NOT GIVENUNK Denzel Insurance:SELF PAY [facility] Effective Repository Date:2017-08-24
== END ==
PROVIDERS: Family Provider Family Medicine; PCP Family Medicine; Referring Provider Family Medicine; Visit Provider Family Medicine
DX: R14.0 Abdominal distension (gaseous) (principal)
CPT/HCPCS: 74019

== ENCOUNTER → 2018-06-27 10:16 | Outpatient (CLI) | payer MEDICARE, MEDICAID, SELFPAY ==
[2018-06-27 12:40] LABS: Erythrocyte Sedimentation Rate 41 mm/hr (0-30)
[2018-06-27 12:43] LABS: Hematocrit 37.9 % (37-47); Hemoglobin 11.7 g/dl (12.0-15.0); Mean Corp Hgb Conc 30.9 g/gl (32-36); Mean Corpuscular Hgb 25.9 pg (27.0-32.0); Mean Platelet Vol. 11.5 fl (6.2-12.0); Platelet Count 223 K/mm3 (150-450); RBC Distribution Width CV 15.6 % (11.6-14.6); RBC Distribution Width SD 48.1 fl (35.1-43.9); Red Blood Count 4.51 M/mm3 (4.2-5.4); Scan Indicated on CBC? Y/N NO; White Blood Count 8.2 K/mm3 (4.4-11.0)
[2018-06-27 13:05] LABS: Anion Gap 10 (5-15); BUN 15 mg/dL (7-18); BUN/Creat Ratio 15.4 RATIO (10-20); Chloride 106 mmol/L (98-107); Creatinine, Serum 0.97 mg/dL (0.55-1.02); EST Glomerular Filtration Rate 60 mL/min (>60); Est Glom Filt Rate - Afr Amer 73 mL/min (>60); Glucose 128 mg/dL (74-106); Potassium 4.6 mmol/L (3.5-5.1); Sodium Level 143 mmol/L (136-145); Thyroid Stim Hormone (TSH) 1.97 uIU/mL (0.358-3.74)
[2018-06-28 12:02] LABS: Vitamin D,25 Hydroxy 41.9 ng/mL (29.95-100.01)
--- OUTSIDE RECORDS SUMMARY | 2018-09-28 14:00 | XMS RPT_ITS ---
:1950 Author Organization [place] Support Name Relationship Address Phone ARYAN VICK Unavailable [address] + [place] [address] NATHALIA FRANCE Unavailable [address] + [place] [address] R Unavailable Unavailable Unavailable ARYAN VICK Unavailable [address] + [place] [address] NATHALIA FRANCE Unavailable [address] + [place], [place] R Unavailable Unavailable Unavailable NICANOR ARYAN Unavailable [address] + [place] [address] NATHALIA FRANCE Unavailable [address] + [place] [address] R Unavailable Unavailable Unavailable ARYAN VICK Unavailable [address] + [place] [address] NATHALIA FRANCE Unavailable [address] + [place] [address] R Unavailable Unavailable Unavailable NICANOR ARYAN Unavailable [address] + [place] [address] NATHALIA FRANCE Unavailable [address] + [place], [place] R Unavailable Unavailable Unavailable NICANOR ARYAN Unavailable [address] + [place] [address] NATHALIA FRANCE Unavailable [address] + [place] R Unavailable Unavailable Unavailable NICANOR ARYAN Unavailable [address] + [place] [address] NATHALIA FRANCE Unavailable [address] + [place], [place] R Unavailable Unavailable Unavailable ARYAN VICK Unavailable [address] + [place] [address] NATHALIA FRANCE Unavailable [address] + [place], [place] R Unavailable Unavailable Unavailable ARYAN VICK Unavailable [address] + [place] [address] NATHALIA FRANCE Unavailable [address] + [place] R Unavailable Unavailable Unavailable ARYAN VICK Unavailable [address] + [place] [address] NATHALIA FRANCE Unavailable [address] + [place] R Unavailable Unavailable Unavailable ARYAN VICK Unavailable [address] + [place] [address] NATHALIA FRANCE Unavailable [address] + [place] R Unavailable Unavailable Unavailable ARYAN VICK Unavailable [address] + [place] [address] NATHALIA FRANCE Unavailable [address] + [place], [place] R Unavailable Unavailable Unavailable ARYAN VICK Unavailable [address] + [place] [address] NATHALIA FRANCE Unavailable [address] + [place], [place] R Unavailable Unavailable Unavailable ARYAN VICK Unavailable [address] + [place] [address] NATHALIA FRANCE Unavailable [address] + [place], [place] R Unavailable Unavailable Unavailable Care Team Providers Name Role Phone Sivakumar Berger Attending Unavailable Sivakumar Berger Referring Unavailable Sivakumar Berger Primary Care Unavailable Sivakumar Berger Attending Unavailable Sivakumar Berger Referring Unavailable Sivakumar Berger Primary Care Unavailable Sivakumar Berger Attending Unavailable Sivakumar Berger Referring Unavailable Sivakumar Berger Primary Care Unavailable Ranney, Christopher Attending Unavailable Ranney, Christopher Referring Unavailable Ranney, Christopher Primary Care Unavailable Tony Castro Attending Unavailable Ranney, Christopher Primary Care Unavailable [place], [...] Care Unavailable White, Stephanie Consulting Unavailable Paintsil, Belton Attending Unavailable Hinton, Armando Admitting Unavailable Hinton, [...] - Encounter Celine, Active [place] for screening [facility] mammogram for Hospital malignant neoplasm Repository of breast / Z12.31(ICD-10) 07/25/2018 Unknown R25.2 - Cramp and [place]eline, Active [place] spasm / [facility] R25.2(ICD-10) Hospital Repository 07/25/2018 Unknown R14.0 - Abdominal Ranvaleriy, Active [place] distension (gaseous) [facility] / R14.0(ICD-10) Hospital Repository 05/02/2018 Unknown I10 - Essential Ranvaleriy, Active [place] (primary) [facility] hypertension / Hospital I10(ICD-10) Repository 05/02/2018 Unknown E11.9 - Type 2 [place], Active [place] diabetes mellitus [facility] without Hospital complications / Repository E11.9(ICD-10) 05/02/2018 Unknown E03.9 - [place], Active [place] Hypothyroidism, [facility] unspecified / Hospital E03.9(ICD-10) Repository 11/29/2017 Unknown G89.18 - Other acute Damien Clarke Active [place] postprocedural pain Community / G89.18(ICD-10) Hospital Repository 12/29/2017 Unknown R07.9 - Chest pain, Mahesh Ceballos Active [place] unspecified / Community R07.9(ICD-10) Hospital Repository 11/07/2017 Unknown M25.551 - Pain in Celine, Active [place] right hip / [place] Community M25.551(ICD-10) Hospital Repository 09/22/2017 Unknown M25.559 - Pain in Tony Castro Active [place] unspecified hip / Community M25.559(ICD-10) Hospital Repository PROCEDURES PROCEDURES No Procedure Records FoundRESULTS RESULTS SCREENING MAMM (CAD), Observed: 07/12/2018 Status: F Source: [place] BILAT 7:49 AM [facility] REPOSITORY [facility] Imaging Services [address] [place] [address] SCREENING MAMM (CAD), BILAT MR#: [id number] Acct: [id number] Name: KERWIN VICK Rep #: [id number] : 1950 F 67 From: Amor Luevano MD PCP: Sivakumar Berger MD Status: REG CLI Study: SCREENING MAMM (CAD), BILAT Date of Exam: 07/12/18 Exam# [id number] Ordering Dr: Keaton Berger MD MAMMOGRAPHY - [...] delay biopsy of a clinically suspicious abnormality. [id number] Electronically Signed: Amor Luevano MD at 12:51 EST Tel [phone], Service support , CC: Sivakumar Berger MD Bull Gang Worker: Signed ERYTHROCYTE SED RATE Collected: 06/27/2018 Status: F Source: [place] 10:24 AM [facility] [place] [facility] TYPE CODE TESTS RESULT OUT OF RANGE REFERENCE UNITS LAB L102.0000 0-30 mm/hr High SED RATE 41 Performed By: #### L101.9900, L100.0500, L500.2500, L501.5200, L501.9520 #### [facility] [address] [place], [place], [id number] CBC-COMPLETE BLOOD CNT Collected: 06/27/2018 Status: F Source: [place] NO DIFF 10:24 AM [facility] [place] [facility] TYPE CODE TESTS RESULT OUT OF [...] #### L101.9900, L100.0500, L500.2500, L501.5200, L501.9520 #### [facility] [address] [place], [address] BASIC METABOLIC Collected: 06/27/2018 Status: F Source: [place] PROFILE (BMP) 10:24 AM [facility] [place] [facility] [place] TYPE CODE TESTS RESULT OUT OF [...] #### L101.9900, L100.0500, L500.2500, L501.5200, L501.9520 #### [facility] [address] [place], [address] MAGNESIUM Collected: 06/27/2018 Status: F Source: [place] 10:24 AM [facility] TYPE CODE TESTS RESULT OUT OF RANGE REFERENCE UNITS LAB L501.5200 1.6-2.6 mg/dL Normal MG 2.0 Performed By: #### L101.9900, L100.0500, L500.2500, L501.5200, L501.9520 #### [facility] [address] [place], [address] THYROID STIM HORMONE Collected: 06/27/2018 Status: F Source: [place] (TSH) 10:24 AM [facility] TYPE CODE TESTS RESULT OUT OF RANGE REFERENCE UNITS LAB L501.9520 0.358-3.74 uIU/mL Normal TSH 1.97 Performed By: #### L101.9900, L100.0500, L500.2500, L501.5200, L501.9520 #### [facility] [address] [place], [address] VITAMIN D,25 HYDROXY Collected: 06/27/2018 Status: F Source: [place] 10:24 AM [facility] Order Comment: ADD ON TO WG3 [...] (>250 nmol/L) Performed By: #### L506.1000 #### [facility] [address] [place], [address] ABD INC DECUB Observed: 06/25/2018 Status: F Source: [place] AND/OR ERECT 4:22 PM [facility] Imaging Services [address] [place] [address] Abd Inc Decub and/or Erect MR#: [id number] Acct: [id number] Name: KERWIN VICK Rep #: [id number] : 1950 F 67 From: Sarah Rain MD PCP: Sivakumar Berger MD Status: REG CLI Study: Abd Inc Decub and/or Erect Date of Exam: 06/25/18 Exam# [id number] Ordering Dr: Keaton Berger MD STUDY: X-RAY - ABDOMEN/PELVIS REASON FOR EXAM: Female, 67 years old. Pain TECHNIQUE: 4 AP supine views of the abdomen and pelvis. COMPARISON: 2014 CT scan abdomen and pelvis FINDINGS: Lung bases are out of the ccvdp-hr-spgc. There is a focus of radiopaque material [...] Service support , CC: Sivakumar Berger MD Bull Gang Worker: Signed COMPREHENSIVE METABOLIC Collected: 04/09/2018 Status: F Source: [facility] 9:26 AM [facility] TYPE CODE TESTS RESULT OUT OF [...] 10 Performed By: #### L500.4050, L500.4100 #### [facility] [address] [place], [address] LIPID PROFILE Collected: 04/09/2018 Status: F Source: [place] 9:26 AM [facility] TYPE CODE TESTS RESULT OUT OF [...] 33 Performed By: #### L500.4050, L500.4100 #### [facility] [address] [facility] [place], [place], [id number] THYROID STIM HORMONE Collected: 04/09/2018 Status: F Source: [place] (TSH) 9:26 AM [facility] TYPE CODE TESTS RESULT OUT OF RANGE REFERENCE UNITS LAB L501.9520 0.358-3.74 uIU/mL Normal TSH 0.78 Performed By: #### L501.9520 #### [facility] [address] [facility] [facility] [place], [place], [address] MICROALB:CREAT Collected: 04/09/2018 Status: F Source: [place] RATIO,RANDOM UR 9:26 AM [facility] TYPE CODE TESTS RESULT OUT OF RANGE REFERENCE UNITS LAB L501.1200 NO RANGE EST. mg/dL Normal UR CREAT 131.00 LAB L502.0500 NO RANGE EST. mg/L Normal 6.0 MICROALBUMIN ,UR LAB L502.0600 <30 mg/g CRE mg/g CRE Normal 4.6 MALB:CREAT Performed By: #### L502.0250 #### [facility] [address] [place], [place], [address] DISCHARGE SUMMARY Observed: 12/09/2017 Status: F Source: [place] 12:47 PM [facility] Medical Records Department [address] [place] [address] Discharge Summary 12/08/17 1602 MR#: [id number] Acct: [id number] Name: KERWIN VICK Rep #: [id number] : 1950 67 From: Zita LOPESC PCP: Sivakumar Berger MD Status: DIS IN Y Location: [place] [address] Rehab Discharge Summary DATE OF ADMISSION: 11/29/17 [...] signed by Zita LOPESC> Date Zita Curran ACTUARIAL CLERKOctavioC 12/09/17 1247<Electronically signed by Armando Hinton MD> Cosigner Signature (if applicable): Date Armando Hinton MD CC: ACTUARIAL CLERK Zita Curran; Sivakumar Berger MD; Armando Hinton MD Signed DISCHARGE INSTRUCTION Observed: 12/08/2017 Status: F Source: [place] 4:37 PM [facility] Medical Records Department [address] [place] [address] Instructions for Home/Discharge Instructions 12/08/17 1558 MR#: [id number] Acct: [id number] Name: KERWIN VICK Rep #: [id number] : 1950 67 From: Zita Curran NP-C [...] LEAD ELECTROCARDIOGRAM Observed: 12/06/2017 Status: F Source: [place] 3:29 PM [facility] Cardiovascular Services [address] [place] [address] [place] [address] 12 Lead EKG 11/27/17 0944 MR#: [id number] Acct: [id number] Name: KERWIN VICK Rep #: [id number] : 1950 67 From: Mahesh Ceballos MD Attending Dr: Damien Clarke DO Status: DIS IN Ordering Dr: Charan Contreras MD Date: 11/27/17 Location: SD3 Sex: F C Admitted: 11/27/17 Test Reason : CHEST PAIN-POSTOP Blood Pressure : / mmHG Vent. Rate : 091 BPM Atrial Rate : 091 BPM P-R Int : 206 ms QRS Dur : 072 ms QT Int : 394 ms P-R-T Axes : 061 029 022 degrees QTc Int : 484 ms Normal sinus rhythm Normal ECG Confirmed by TUCKER JAUREGUI, MAHESH ([id number]), industrial editor PARKER DRAPER ([id number]) on 12/06/2017 3:28:53 PM Referred By: Damien Clarke Confirmed By:MAHESH CEBALLOS MD 12/06/17 1528 Date Mahesh Ceballos MD CC: Charan Contreras MD; Sivakumar Berger MD; Damien Clarke DO Signed BEDSIDE GLUCOSE Collected: 11/30/2017 Status: F Source: [place] 12:05 PM [facility] TYPE CODE TESTS RESULT OUT OF RANGE REFERENCE UNITS LAB L501.080 70-110 mg/dL Normal BEDSIDE GLU 104 Result Comment: MANAGEMENT OF PATIENT CARE PER NURSING PROTOCOL Performed By: #### L501.080 #### [facility] Point of Care [address] [place] [address] H AND P W/ COSIGN Observed: 11/30/2017 Status: F Source: [place] 9:55 AM [facility] Medical Records Department [address] [place] [address] H AND P w/ Cosign 11/29/17 1612 MR#: [id number] Acct: [id number] Name: KERWIN VICK Rep #: [id number] : 1950 67 From: Zita Curran ACTUARIAL CLERK-C PCP: Sivakumar Berger MD Status: ADM IN Location: [id number] ADDENDUM by Ann Hay MD on 11/30/17 [...] diff, avascular necrosis of hip admitted to [facility] for debility s/p right total hip arthroplasty for > 3 hrs therapy daily, with a goal of returning back home at or near her prior level of functional independence, GI/DVT prophylaxis, PT/OT, fall precautions. Further medical management per hospitalist recommendations. Better pain control and BP control. Inpatient E AND M: [id number] Init Hosp L3 11/30/17 0955 <Electronically signed [...] 2013 Psychiatric History: No pertinent psych hx CALENDAR CONTROL CLERK BLOOD BANK History: No pertinent CALENDAR CONTROL CLERK BLOOD BANK history Lives: Alone Smoking Status: Never smoker [...] and Hypothyroidism . Goal of rehab is voodoo of functional independence. Plan: - Physical therapy [...] 11/29/17 1730 <Electronically signed by Zita Curran ACTUARIAL CLERK-C> Date Zita Curran ACTUARIAL CLERK-C 11/30/17 0941<Electronically signed by Darinel Hay MD> Cosigner Signature (if applicable): Date Darinel Hay MD CC: TIFFANIE Curran; Ann Hay MD; Sivakumar Berger MD Signed BEDSIDE GLUCOSE Collected: 11/30/2017 Status: F Source: [place] 6:43 AM [facility] TYPE CODE TESTS RESULT OUT OF RANGE REFERENCE UNITS LAB L501.080 70-110 mg/dL Normal BEDSIDE GLU 96 Result Comment: MANAGEMENT OF PATIENT CARE PER NURSING PROTOCOL Performed By: #### L501.080 #### [facility] Point of Care [address] [place], [place] [address] CBC-COMPLETE BLOOD CNT Collected: 11/30/2017 Status: F Source: [place] NO DIFF 5:25 AM [facility] TYPE CODE TESTS RESULT OUT OF [...] MPV 11.7 Performed By: #### L100.0500 #### [facility] [address] [place], [place], [address] BASIC METABOLIC Collected: 11/30/2017 Status: F Source: [place] PROFILE (BMP) 5:25 AM [facility] TYPE CODE TESTS RESULT OUT OF [...] 7 Performed By: #### L500.2500, L501.5200 #### [facility] [address] [facility] [place], [place], [address] MAGNESIUM Collected: 11/30/2017 Status: F Source: [place] 5:25 AM [facility] TYPE CODE TESTS RESULT OUT OF RANGE REFERENCE UNITS LAB L501.5200 1.6-2.6 mg/dL Normal MG 2.0 Performed By: #### L500.2500, L501.5200 #### [facility] [address] [facility] [place], [address] PHOSPHORUS Collected: 11/30/2017 Status: F Source: [place] 5:25 AM [facility] TYPE CODE TESTS RESULT OUT OF RANGE REFERENCE UNITS LAB L501.2300 2.5-4.9 mg/dL Normal PHOS 2.8 Performed By: #### L501.2300 #### [facility] [address] [facility] [place], [address] BEDSIDE GLUCOSE Collected: 11/29/2017 Status: F Source: [place] 9:26 PM [facility] TYPE CODE TESTS RESULT OUT OF RANGE REFERENCE UNITS LAB L501.080 70-110 mg/dL Normal BEDSIDE GLU 87 Result Comment: MANAGEMENT OF PATIENT CARE PER NURSING PROTOCOL Performed By: #### L501.080 #### [facility] Point of Care [address] [place] [address] BEDSIDE GLUCOSE Collected: 11/29/2017 Status: F Source: [place] 4:57 PM [facility] TYPE CODE TESTS RESULT OUT OF RANGE REFERENCE UNITS LAB L501.080 70-110 mg/dL Normal BEDSIDE GLU 84 Result Comment: MANAGEMENT OF PATIENT CARE PER NURSING PROTOCOL Performed By: #### L501.080 #### [facility] Point of Care [address] [place] [address] DISCHARGE INSTRUCTION Observed: 11/29/2017 Status: F Source: [place] 12:55 PM [facility] Medical Records Department [address] [place] [address] Instructions for Home/Discharge Instructions 11/29/17 1246 MR#: [id number] Acct: [id number] Name: KERWIN VICK Rep #: [id number] : 1950 67 From: Magdy Burnett PA-C [...] When: as scheduled (see pink sheet) 11/29/17 9145 <Electronically signed by Magdy Burnett PA-C> Date Magdy Burnett PA-C CC: Sivakumar Berger MD BEDSIDE GLUCOSE Collected: 11/29/2017 Status: F Source: [place] 11:07 AM [facility] TYPE CODE TESTS RESULT OUT OF REFERENCE UNITS RANGE LAB L501.080 70-110 mg/dL High BEDSIDE GLU 122 Result Comment: MANAGEMENT OF PATIENT CARE PER NURSING PROTOCOL Performed By: #### L501.080 #### [facility] Point of Care [address] [place] [address] CBC-COMPLETE BLOOD CNT Collected: 11/29/2017 Status: F Source: [place] NO DIFF 5:24 AM [facility] TYPE CODE TESTS RESULT OUT OF [...] MPV 11.6 Performed By: #### L100.0500 #### [facility] [address] [place], [address] CBC-COMPLETE BLOOD CNT Collected: 11/28/2017 Status: F Source: [place] NO DIFF 5:50 AM [facility] TYPE CODE TESTS RESULT OUT OF [...] 11.3 Performed By: #### L100.0500, L500.2500 #### [facility] [address] [place], [address] BASIC METABOLIC Collected: 11/28/2017 Status: F Source: [place] PROFILE (BMP) 5:50 AM [facility] TYPE CODE TESTS RESULT OUT OF [...] 8 Performed By: #### L100.0500, L500.2500 #### [facility] [address] [place], [address] OPERATIVE REPORT Observed: 11/27/2017 Status: F Source: [place] 8:32 AM [facility] Medical Records Department [address] [place] [address] Operative Report 11/27/17 0829 MR#: [id number] Acct: [id number] Name: KERWIN VICK Rep #: [id number] : 1950 67 From: Damien Clarke DO PCP: Sivakumar Berger MD Status: ADM IN Y Location: [facility] FY850-0 Report of Operation Date of Procedure: 11/27/17 Pre-Operative Diagnosis: Severe end-stage osteoarthritis right hip Post-Operative Diagnosis: Severe end-stage osteoarthritis right hip Surgery/Procedure Performed:: Total hip arthroplasty right Description of Surgical Findings:: Eburnation of bone, periarticular osteophytes consistent with osteoarthritis content designer: Magdy Burnett Type of Anesthesia:: Spinal Anesthesiologist: [...] and minimus was performed with #1 Vicryl mnjsmx-ok-peqnj type fashion followed by closure of the [...] weeks of the gluteal musculature heals. Physician behavioral health assistant was integral in all portions of this procedure. They assisted with positioning the patient, draping the extremity, holding retractors, closing the wound, and applying the dressing. This was all done under my direct supervision. The physician behavioral health assistant was essential for a successful, efficient [...] Status: F Source: [place] (PORTABLE) 8:28 AM [facility] Imaging Services [address] [place] [address] Hip Min 2 Views (Portable) MR#: [id number] Acct: [id number] Name: KERWIN VICK Rep #: [id number] : 1950 F 67 From: Amor Luevano MD PCP: Sivakumar Berger MD Status: ADM IN Study: Hip Min 2 Views (Portable) Date of Exam: 11/27/17 Exam# [id number] Ordering Dr: Damien Clarke DO STUDY: X-RAY [...] Amor Luevano MD at 10:33 EDT Tel [phone], Service support , CC: Sivakumar Berger MD; Damien Clarke DO Bull Gang Worker: Signed BEDSIDE GLUCOSE Collected: 11/27/2017 Status: F Source: [place] 5:59 AM [facility] TYPE CODE TESTS RESULT OUT OF REFERENCE UNITS RANGE LAB L501.080 70-110 mg/dL High BEDSIDE GLU 114 Result Comment: MANAGEMENT OF PATIENT CARE PER NURSING PROTOCOL Performed By: #### L501.080 #### [facility] Point of Care [address] [facility] [place] [address] 12 LEAD ELECTROCARDIOGRAM Observed: 11/15/2017 Status: F Source: [place] 2:01 PM [facility] Cardiovascular Services [address] [place] [address] 12 Lead EKG 11/14/17 1245 MR#: [id number] Acct: [id number] Name: KERWIN VICK Rep #: [id number] : 1950 67 From: Mahesh Ceballos MD Attending Dr: Damien Clarke DO Status: PRE IN Ordering Dr: Damien Clarke DO Date: 11/14/17 Location: [facility] Sex: F C Admitted: Test Reason : [...] Borderline ECG Confirmed by TUCKER JAUREGUI, MAHESH ([id number]), industrial editor PARKER DRAPER ([id number]) on 11/15/2017 2:00:32 PM Referred By: Damien Clarke Confirmed By:MAHESH CEBALLOS MD 11/15/17 1400 Date Mahesh Ceballos MD CC: Sivakumar Berger MD; Damien Clarke DO Signed PROTHROMBIN TIME W/INR Collected: 11/14/2017 Status: F Source: [place] 1:50 PM [facility] TYPE CODE TESTS RESULT OUT OF RANGE REFERENCE UNITS LAB L300.4150 11.7-14.9 SECONDS Normal PROTIME 13.1 LAB L300.4200 Normal INR 1.0 Performed By: #### L300.3900, L300.4310 #### [facility] [address] [place], [place], [id number] PARTIAL THROMBOPLAST Collected: 11/14/2017 Status: F Source: [place] TIME 1:50 PM [facility] TYPE CODE TESTS RESULT OUT OF RANGE REFERENCE UNITS LAB L300.4310 24.1-36.2 Seconds Normal PTT 28.9 Performed By: #### L300.3900, L300.4310 #### [facility] [address] [place], [place], [id number] HEMOGLOBIN A1C Collected: 11/14/2017 Status: F Source: [place] 1:50 PM [facility] TYPE CODE TESTS RESULT OUT OF RANGE REFERENCE UNITS LAB L501.9985 4.2-6.3 % Normal HGB A1C 6.2 Performed By: #### L501.9985 #### [facility] [address] [place], [place], [id number] LIVER PROFILE Collected: 11/14/2017 Status: F Source: [place] 1:50 PM [facility] TYPE CODE TESTS RESULT OUT OF [...] BILI 0.10 Performed By: #### L500.3400 #### [facility] [address] [place], [address] Observed: 11/14/2017 Status: F Source: [place] MRSA/SAID SCREEN 1:50 PM [facility] MRSA/SAID SCRN S. AUREUS S. aureus Negative MRSA MRSA Negative Performed By: #### M100.651 #### [facility] [address] [place], [address] CBC W/DIFF, AUTOMATED Collected: 11/01/2017 Status: F Source: [place] 4:38 PM [facility] Order Comment: Order Date: 11/01/17 Order Info: 0184-1 - CBCD Order Info: 80661-0 - SED TYPE CODE TESTS RESULT OUT [...] 3.86 Performed By: #### L100.0100, L101.9900 #### [facility] [address] [place] [address], [id number] ERYTHROCYTE SED RATE Collected: 11/01/2017 Status: F Source: [place] 4:38 PM [facility] Order Comment: Order Date: 11/01/17 Order Info: 0184-1 - CBCD Order Info: 98312-0 - SED TYPE CODE TESTS RESULT OUT OF RANGE REFERENCE UNITS LAB L102.0000 0-30 mm/hr Normal SED RATE 28 Performed By: #### L100.0100, L101.9900 #### [facility] [address] [place], [place], [id number] CRP Collected: 11/01/2017 Status: F Source: [place] 4:38 PM [facility] TYPE CODE TESTS RESULT OUT OF RANGE REFERENCE UNITS LAB L501.6710 0.0-3.0 mg/L High 5.96 C-REACTIVE PROT Result Comment: C-Reactive Protein (CRP) provides useful information for the diagnosis, therapy and monitoring of inflammatory processes and associated diseases. For the evaluation of Relative Risk for Cardiovascular Disease, a High Sensitivity CRP (HSCRP) should be ordered. Performed By: #### L501.6710 #### [facility] [address] [place], [address] LOWER EXT JOINT ONLY Observed: 10/31/2017 Status: F Source: LINN (ROUTINE) 7:09 AM [facility] Imaging Services [address] [place] [address] Lower Ext Joint Only (Routine) MR#: [id number] Acct: [id number] Name: KERWIN VICK Rep #: [id number] : 1950 F 66 From: Abril Draper MD PCP: Sivakumar Berger MD Status: REG CLI Study: Lower Ext Joint Only (Routine) Date of Exam: 10/31/17 Exam# [id number] Ordering Dr: Keaton Berger MD STUDY: MRI [...] Service support , CC: Sivakumar Berger MD Bull Gang Worker: Signed COMPREHENSIVE METABOLIC Collected: 10/03/2017 Status: F Source: DENZEL DAREN 2:44 PM [facility] Order Comment: Order Date: 10/03/17 Order Info: 0786-1 - CMP Order Info: [id number] - LIPID Order Info: 3016-3 - TSH [...] Performed By: #### L500.4050, L500.4100, L501.9520 #### [facility] [address] [place], [address] LIPID PROFILE Collected: 10/03/2017 Status: F Source: LINN 2:44 PM [facility] Order Comment: Order Date: 10/03/17 Order Info: 0786-1 - CMP Order Info: [id number] - LIPID Order Info: 3016-3 - TSH [...] Performed By: #### L500.4050, L500.4100, L501.9520 #### [facility] [address] [place], [address] THYROID STIM HORMONE Collected: 10/03/2017 Status: F Source: LINN (TSH) 2:44 PM [facility] Order Comment: Order Date: 10/03/17 Order Info: 0786-1 - CMP Order Info: [id number] - LIPID Order Info: 3016-3 - TSH TYPE CODE TESTS RESULT OUT OF RANGE REFERENCE UNITS LAB L501.9520 0.358-3.74 uIU/mL Normal TSH 0.69 Performed By: #### L500.4050, L500.4100, L501.9520 #### [facility] [address] [place], [address] HIP 2-3 VIEWS WITH Observed: 08/24/2017 Status: F Source: DENZEL PELVIS 11:55 AM [facility] Imaging Services [address] [place] [address] Hip 2-3 Views with Pelvis MR#: [id number] Acct: [id number] Name: KERWIN VICK Carmen Rep #: [id number] : 1950 F 66 From: Amor Luevano MD PCP: Sivakumar Berger MD Status: REG CLI Study: Hip 2-3 Views with Pelvis Date of Exam: 08/24/17 Exam# [id number] Ordering Dr: Tony Castro MD STUDY: X-RAY [...] Amor Luevano MD at 15:59 EST Tel [phone], Service support , CC: Tony Castro MD; Sivakumar Berger MD Bull Gang Worker: Signed ALLERGIES ALLERGIES DATE TYPE / CODE NAME / CODE REACTION SEVERITY SOURCE 11/14/2017 Drug codeine/F00 Upset Stomach Unknown Denzel Allergy/227600862(S 3994008([facility]N [facility] OR) Hospital Repository 11/14/2017 Miscellaneous bee sting Anaphylaxis Unknown [place] Allergy/652691958(S [facility] Hospital Repository ENCOUNTERS ENCOUNTERS ADMIT/DISCHARGE ACCOUNT ADMITTING ENCOUNTER LOCATION SOURCE NUMBER CLASS 07/12/2018 [id number] Ambulatory [place] Denzel 3 [facility] ing:OPBI Repository 06/28/2018 [id number] Ambulatory Larned Larned 7 [facility] ing:MTLAB Repository 06/27/2018 [id number] Ambulatory Denzel Denzel 8 [facility] ing:MTLAB Repository 06/25/2018 [id number] Ambulatory Denzel Denzel 7 [facility] ing:MTRAD Repository 04/09/2018 [id number] Ambulatory Denzel Denzel 6 [facility] ing:MFPLAB Repository 11/29/2017/ [id number] Mary Jane Inpatient Denzel Denzel 8 0 Armando Encounter [facility] ing:RURoom: Repository MW844Lgv: 1 11/29/2017 [id number] [place], Ambulatory BMSBuilding:B [place] 6 Armando MS.WIP [facility] [place] 11/27/2017/ [id number] Vince, Inpatient Denzel Larned 8 4 Damien Encounter [facility] ing:RC3Enrk: Repository GU889Sht: 1 11/27/2017/ [id number] Ambulatory BMSBuilding:W Denzel 8 7 [facility] Repository 11/14/2017/ [id number] Ambulatory BMSBuilding:W Denzel 8 3 [facility] Repository 11/01/2017 [id number] Ambulatory [place] Denzel 6 [facility] ing:MTLAB Repository 10/31/2017 [id number] Ambulatory [place] Denzel 3 [facility] ing:MRI Repository 10/03/2017 [id number] Ambulatory Larned Larned 2 [facility] ing:MTLAB Repository 08/24/2017 [id number] Ambulatory Larned Larned 8 [facility] ing:RAD Repository PAYERS PAYERS ENCOUNTER GUARANTOR PAYER SUBSCRIBER SOURCE 07/12/2018 KERWIN Morales Primary KERWIN C Denzel [id number] Insurance:ANTHEM BOREMANDOB: [facility] NANCY DRAPT MEDICARE [facility] [id number] ADVANTAPolicy Number: Repository [id number]: (675) [id number] [phone] () Date:[id number] [address]ZD: 07/12/2018 Secondary KERWIN C Denzel Insurance:MEDICAIDPol BOREMANDOB: [facility] Number: [id number] Hospital [id number] Repository Date:2018-05-09 07/12/2018 Tertiary NOT GIVENUNK Denzel Insurance:SELF PAY [facility] Number: Effective Repository Date:2018-05-09 06/28/2018 KERWIN C Primary KERWIN C [place] [id number] Insurance:ANTHEM BOREMANDOB: [facility] NANCY DRAPT MEDICARE [facility] [id number] ADVANTAPolicy Number: Repository [id number]: (330 [id number] [phone] (HP) Date:5900-08-65HO [address] [place] [address]KG: 06/28/2018 Secondary NOT GIVENUNK Denzel Insurance:SELF PAY [facility] Number: Effective Repository Date:2018-06-28 06/27/2018 KERWIN C Primary KERWIN C Denzel [id number] Insurance:ANTHEM BOREMANDOB: Community NANCY [address]APT MEDICARE [facility] [id number] ADVANTAPolicy Number: Repository [id number]: (330 [id number] [phone] (HP) Date:8499-70-10CZ [address] [place] [address] 33060QE: 06/27/2018 Secondary KERWIN C Denzel Insurance:MEDICAIDPol BOREMANDOB: Community icy Number: [id number] Hospital [id number] Repository Date:2018-06-27 06/27/2018 Tertiary NOT GIVENUNK Denzel Insurance:SELF PAY [facility] Number: Effective Repository Date:2018-06-27 06/25/2018 KERWIN C Primary KERWIN C Denzel [id number] Insurance:ANTHEM BOREMANDOB: Community [address]Y [address]T MEDICARE [facility] [id number] ADVANTAPolicy Number: Repository [id number]: (330) [id number] [phone] (HP) Date:1060-39-47PJ [address] [place] [address] 70693EB: 06/25/2018 Secondary KERWIN C Denzel Insurance:MEDICAIDPol BOREMANDOB: Community icy Number: [id number] Hospital [id number] Repository Date:2018-06-25 06/25/2018 Tertiary NOT GIVENUNK [place] Insurance:SELF PAY [facility] Number: Effective Repository Date:2018-06-25 04/09/2018 Kerwin C Primary Kerwin C Denzel [id number] Insurance:ANTHEM BoremanDOB: Community NANCY DRAPT MEDICARE SENIOR [id number] ADVANTAPolicy Number: Repository [id number]: 330 [id number] [phone] (HP) Date:[id number] [address]YE: 04/09/2018 Secondary Kerwin C Larned Insurance:MEDICAIDPol BoremanDOB: Community icy Number: [id number] Hospital [id number] Repository Date:2018-04-09 04/09/2018 Tertiary NOT GIVENUNK [place] Insurance:SELF PAY [facility] Number: Effective Repository Date:2018-04-09 11/29/2017 Kerwin C Primary Kerwin C Larned [id number] Insurance:MEDICARE BoremanDOB: Community [address]Y [address]T PART A [facility] [id number] Number: Repository [address]Vxp: 330 [id number] [phone] () Date:2017-11-29 11/29/2017 Secondary Kerwin C Denzel Insurance:MEDICAIDPol BoremanDOB: Community icy Number: [id number] [facility] [id number] Repository Date:2017-11-29 11/29/2017 Tertiary NOT GIVENUNK Denzel Insurance:SELF PAY [facility] Number: Effective Repository Date:2017-11-29 11/29/2017 Kerwin C Primary Kerwin C Larned [id number] Insurance:MEDICARE BoremanDOB: Community N[address]Y [address]T PART A [facility] [id number] Number: Repository [address]Sqt: 330 [id number] [phone] () Date:2017-11-29 11/29/2017 Secondary Kerwin C Denzel Insurance:MEDICAIDPol BoremanDOB: Community icy Number: [id number] [id number] Repository Date:2017-11-29 11/29/2017 Tertiary NOT GIVENUNK [place] Insurance:SELF PAY [facility] Number: Effective Repository Date:2017-11-29 11/27/2017 Kerwin C Primary Kerwin C Denzel [id number] Insurance:MEDICARE BoremanDOB: Community N[address]Y [address] PART A [facility] [id number], [place] Number: Repository [address]Yni: 330 [id number] [phone] () Date:2017-11-03 11/27/2017 Secondary Kerwin C Larned Insurance:MEDICAIDPol BoremanDOB: Community icy Number: [id number] [facility] [id number] Repository Date:2017-11-03 11/27/2017 Tertiary NOT GIVENUNK [place] Insurance:SELF PAY [facility] Number: Effective Repository Date:2017-11-03 11/27/2017 Kerwin C Primary Kerwin C Larned [id number] Insurance:MEDICARE BoremanDOB: Community [address]Y [address] PART A [facility] [id number] Number: Repository [address]Xvg: 330 [id number] [phone] () Date:2017-11-03 11/27/2017 Secondary Kerwin C Denzel Insurance:MEDICAIDPol BoremanDOB: Community icy Number: [id number] [facility] [id number] Repository Date:2017-11-03 11/27/2017 Tertiary NOT GIVENUNK [place] Insurance:SELF PAY [facility] Number: Effective Repository Date:2017-11-27 11/14/2017 Kerwin C Primary Kerwin C Larned [id number] Insurance:MEDICARE BoremanDOB: Community [address] PART A [facility] [id number], [place] Number: Repository [address]Fca: 330 [id number] [phone] () Date:2017-11-03 11/14/2017 Secondary Kerwin C Denzel Insurance:MEDICAIDPol BoremanDOB: Community icy Number: [id number] [id number] Repository Date:2017-11-03 11/14/2017 Tertiary NOT GIVENUNK [place] Insurance:SELF PAY [facility] Number: Effective Repository Date:2017-11-14 11/01/2017 Kerwin C Primary Kerwin C Larned [id number] Insurance:MEDICARE BoremanDOB: Community [address] PART A [facility] [id number], [place] Number: Repository [address]Wbo: 330 [id number] [phone] () Date:2017-11-01 11/01/2017 Secondary Kerwin C Larned Insurance:MEDICAIDPol BoremanDOB: Community icy Number: [id number] Hospital [id number] Repository Date:2017-11-01 11/01/2017 Tertiary NOT GIVENUNK Denzel Insurance:SELF PAY [facility] Number: Effective Repository Date:2017-11-01 10/31/2017 Kerwin C Primary Kerwin C Denzel [id number] Insurance:MEDICARE BoremanDOB: Community [address] PART A [facility] [id number], [place] Number: Repository [address]Ngz: 330 [id number] [phone] () Date:2017-10-24 10/31/2017 Secondary Kerwin C Larned Insurance:MEDICAIDPol BoremanDOB: Community icy Number: [id number] Hospital [id number] Repository Date:2017-10-24 10/31/2017 Tertiary NOT GIVENUNK [place] Insurance:SELF PAY [facility] Number: Effective Repository Date:2017-10-24 10/03/2017 Kerwin C Primary Kerwin C Larned [id number] Insurance:MEDICARE BoremanDOB: Community NANCY [address]T PART A [facility] [id number] Number: Repository [address]Rtg: 330 [id number] [phone] () Date:2017-10-03 10/03/2017 Secondary Kerwin C Denzel Insurance:MEDICAIDPol BoremanDOB: Community icy Number: [id number] [facility] [id number] Repository Date:2017-10-03 10/03/2017 Tertiary NOT GIVENUNK [place] Insurance:SELF PAY [facility] Number: Effective Repository Date:2017-10-03 08/24/2017 Kerwin C Primary Kerwin C Denzel [id number] Insurance:MEDICARE BoremanDOB: [facility] GWYN PART A [facility] [id number] [facility] [address] [place] Number: Repository [address]Zei: (179) [id number] [phone] () Date:2017-08-24 08/24/2017 Secondary Kerwin C Denzel Insurance:MEDICAIDPol [facility] Number: [id number] Hospital [id number] Repository Date:2017-08-24 08/24/2017 Tertiary NOT GIVENUNK Denzel Insurance:SELF PAY [facility] Number: Effective Repository Date:2017-08-24
== END ==
PROVIDERS: Family Provider Family Medicine; PCP Family Medicine; Referring Provider Family Medicine; Visit Provider Family Medicine
DX: R25.2 Cramp and spasm (principal); E55.9 Vitamin D deficiency, unspecified
CPT/HCPCS: 36415; 80048; 82306; 83735; 84443; 85027; 85652

== ENCOUNTER → 2018-06-28 11:19 | Outpatient (CLI) | payer MEDICARE, SELFPAY | PROVIDERS: Family Provider Family Medicine; PCP Family Medicine; Referring Provider Family Medicine; Visit Provider Family Medicine | DX: E55.9 Vitamin D deficiency, unspecified (principal) ==

== ENCOUNTER → 2018-07-12 07:43 | Outpatient (CLI) | payer MEDICARE, MEDICAID, SELFPAY ==
--- NOTE | 2018-07-12 07:49 | BI_ITS ---
MAMMOGRAPHY - BILATERAL SCREENING REASON FOR EXAM: Female, 67 years old. Routine annual screening examination. PERTINENT HISTORY: Mother with breast cancer. Aunt with breast cancer. TECHNIQUE: Digital bilateral breast bella (3D mammographic acquisition) in the CC and MLO projections. 2-D mediolateral oblique (MLO) and craniocaudad (CC) views of both breasts were obtained. CAD: Full Field Digital Mammography with Computer Added Detection was performed. COMPARISON: Comparison is made with prior study dated July 07, 2016 and July 11, 2007. FINDINGS: Breast Composition: There are scattered areas of fibroglandular density. There are no dominant masses or suspicious calcifications. Stable small benign-appearing bilateral axillary lymph nodes. No other significant abnormalities are identified. There has been no significant change since the prior study. BI/SCREENING MAMM (CAD), BILAT IMPRESSION: Stable bilateral screening mammogram. Yearly follow-up mammogram recommended. (A) ASSESSMENT CATEGORY: BIRADS Category 2: Benign. A letter regarding these results will be sent to the patient by the facility within 30 days. Approximately 10% of breast cancers are not detected by mammography. A normal mammogram should not delay biopsy of a clinically suspicious abnormality. [id number] Electronically Signed: Amor Luevano MD at 12:51 EST Tel [phone], Service support ,
== END ==
PROVIDERS: Family Provider Family Medicine; PCP Family Medicine; Referring Provider Family Medicine; Visit Provider Family Medicine
DX: Z12.31 Encounter for screening mammogram for malignant neoplasm of breast (principal)
CPT/HCPCS: 77063; 77067

== ENCOUNTER → 2018-11-29 11:29 | Outpatient (CLI) | payer MEDICARE, MEDICAID, SELFPAY ==
[2018-11-29 14:11] LABS: Absolute Lymphocyte Count 3.19 X10^3/ul (0.83-4.51); Absolute Neutrophil Count 4.7 X10^3/uL (2.0-7.7); Basophil# 0.04 X10^3/uL; Basophil% 0.5 % (0-1); Eosinophil# 0.14 X10^3/uL; Eosinophils% 1.6 % (0-5); Hematocrit 39.7 % (37-47); Hemoglobin 12.2 g/dl (12.0-15.0); Lymphocyte # 3.19 X10^3/ul (4.0); Lymphocyte % 36.1 % (19-41); Mean Corp Hgb Conc 30.7 g/gl (32-36); Mean Corpuscular Hgb 25.7 pg (27.0-32.0); Mean Corpuscular Volume 83.6 fL (81-99); Mean Platelet Vol. 11.8 fl (6.2-12.0); Monocyte% 7.9 % (0-10); Neutrophil # 4.72 X10^3/uL (2.7-7.7); Neutrophil % 53.4 % (47-70); Platelet Count 237 K/mm3 (150-450); RBC Distribution Width CV 15.7 % (11.6-14.6); RBC Distribution Width SD 47.6 fl (35.1-43.9); Red Blood Count 4.75 M/mm3 (4.2-5.4); White Blood Count 8.8 K/mm3 (4.4-11.0)
[2018-11-29 14:12] LABS: POSITIVE COUNT NO; POSITIVE DIFFERENTIAL NO; POSITIVE MORPHOLOGY NO
[2018-11-29 14:34] LABS: ALB/GLOB Ratio 1.1 RATIO (0.9-2.4); AST(SGOT) 58 U/L (15-37); Alanine Aminotransfer ALT/SGPT 58 U/L (13-56); Albumin, Serum 3.6 g/dL (3.2-5.0); Alkaline Phosphatase 146 U/L (45-117); Anion Gap 6 (5-15); BUN 12 mg/dL (7-18); BUN/Creat Ratio 11.9 RATIO (10-20); Calcium,Total 9.1 mg/dL (8.5-10.1); Chloride 108 mmol/L (98-107); Cholesterol 195 mg/dL (200); Creatinine, Serum 1.01 mg/dL (0.55-1.02); EST Glomerular Filtration Rate 58 mL/min (>60); Est Glom Filt Rate - Afr Amer 70 mL/min (>60); Globulin 3.4 g/dL (2.2-4.2); Glucose 128 mg/dL (74-106); High Density Lipoprotein 39 mg/dL; Potassium 4.4 mmol/L (3.5-5.1); Sodium Level 140 mmol/L (136-145); Thyroid Stim Hormone (TSH) 1.29 uIU/mL (0.358-3.74); Triglycerides 186 mg/dL; Very Low Density Lipoprotein 37 mg/dL (5-40)
[2018-11-30 10:12] LABS: Carcinoembryonic Antigen 3.4 ng/mL (0.0-4.7)
== END ==
PROVIDERS: Family Provider Family Medicine; PCP Family Medicine; Referring Provider Family Medicine; Visit Provider Family Medicine
DX: E11.9 Type 2 diabetes mellitus without complications (principal); C18.9 Malignant neoplasm of colon, unspecified
CPT/HCPCS: 36415; 80053; 80061; 82378; 84443; 85025

== ENCOUNTER 2019-01-21 10:09 | Day surgery (SDC) | payer MEDICARE, MEDICAID, SELFPAY ==
[2019-01-21] VITALS (7 sets, daily range): BP systolic 119–139; BP diastolic 68–77; PULSE 90–107; RESP 14–18; TEMP 36.1–36.8; O2SAT 96–99; BMI 32.7
--- NOTE | 2019-01-21 11:39 | OP.ENDO_ITS ---
01/21/2019 Keaton Berger [address] [place] [address] Re : Colonoscopy procedure for Sofía Carr Dear Dr. Berger This procedure was performed on Monday, January 21, 2019. My impressions and recommendations are as follows: Impressions : - Diverticulosis in the sigmoid colon. - Non-bleeding internal hemorrhoids. - Biopsies were taken with a cold forceps from the entire colon for evaluation of microscopic colitis. My office will contact patient in 1-2 weeks with results. Recommendations : - Repeat colonoscopy in 3 years for surveillance. - Return to primary care physician PRN. - Continue present medications. My findings are described in the full procedure note, which is enclosed. If I can be of further assistance, please feel free to contact me at Doctor phone number(s): , Work: . Sincerely, MD Allyson Jason MD 01/21/2019 11:39:20 AM This report has been signed electronically.
--- NOTE | 2019-01-21 12:00 | COLBX_PTH ---
PATIENT: KERWIN VICK LOC: EN U#:[id number] AGE/SX: 68/F ROOM: RE01/21/[address]: Dr. Allyson Newsome MD : 1950 BED: DIS: 01/21/2019 SPEC #: [id number] RECD: 01/21/19 15:14 STATUS: NOY CYNTHIA #: [id number] FAIZA: 01/21/19 12:[address]: Allyson Newsome DEPT: SURGICAL PATHOLOGY RECD BY: Susy Marcos ENTERED: 01/22/19 08:28 SP TYPE: COLON BX MARIA ISABEL DR: Dr. Sivakumar Berger MD Tissues: COLON BIOPSY Procedures: Surgery Specimen Level IV HEADER OPERATION: Colonoscopy (MAC) PRE-OP DIAGNOSIS: Diarrhea, history of colon cancer TISSUE SUBMITTED: Random colon biopsies MICROSCOPIC DIAGNOSIS Colon, random biopsy: No pathologic diagnosis. AM:meron 01/23/19 MICROSCOPIC DESCRIPTION Slides are reviewed. GROSS DESCRIPTION Received in fixative is one container labeled with the patient's name and designated random colon. The specimen consists of multiple irregular fragments of light nails soft tissue that in aggregate measure 1 x 0.6 x 0.1 cm. The specimen is totally submitted in one cassette. / AM:meron 01/22/19 TC:5 CPT: 57245
--- NOTE | 2019-01-27 12:01 | HP.PCM_ITS ---
History and Physical Date of Admission: 01/21/19 Sofía Carr 1950 ? ? REFERRING PHYSICIAN: Sivakumar Berger, * ? CHIEF COMPLAINT: Consult (Abd pain) ? HPI: The patient is a 68 year old female presents with lower abdominal crampy pain ? She is status post laparoscopic extended right hemicolectomy in October 2013. Stage II right colon cancer. Surgery complicated by postoperative abscess at the anastomotic site, no leak noted. She also had c. diff colitis. This resulted in prolonged recovery from surgery. Is noted to have a ventral incisional hernia. CEA 11/29/18 - normal ? She presents with complaint of lower abdominal crampy discomfort mostly after eating fast food and also with fecal urgency and an episode of loose stools. Denies multiple episode of bowel movements per day, usually 1-2 bowel movements per day. Denies blood in stools. This has been going on for a few weeks. Does think that at one point, she had a chicken salad that was suspect for food poisoning. Denies recently taking any antibiotics. Denies weight loss, has had slow weight gain over the years. ? ? PAST MEDICAL HISTORY Diagnosis Date ? Arachnoiditis 2006 ? Blood dyscrasia ? ? Borderline diabetes ? ? Using Metformin ? Colon cancer (HCC) 2013 ? Diabetes (HCC) ? ? Glaucoma ? ? Mental disorder ? ? Pupils of different size ? ? following accident - rock hit left eye in 2006 ? Snoring ? hypothyroidism ? ? PAST SURGICAL HISTORY Procedure Laterality Date ? COLONOSCOP W/ OR W/O [facility] SPEC ? 11/07/2016 ? Colonoscopy ? LX PARTIAL COLECTOMY ? 2013 ? NONE ? ? ? PARTIAL HIP REPLACEMENT Right 11/28/2017 ? ? Current Outpatient Medications: metFORMIN (GLUCOPHAGE) 500 mg tablet Take 500 mg by mouth twice daily with meals. SACCHAROMYCES BOULARDII (PROBIOTIC, S.BOULARDII, ORAL) Take by mouth. tiZANidine HCl (ZANAFLEX) 4 mg capsule Take 4 mg by mouth three times daily. amitriptyline (ELAVIL) 25 mg tablet Take 25 mg by mouth daily at bedtime. oxyCODONE ir (OXYIR) 5 mg capsule Take 5 mg by mouth every 4 hours as needed. omeprazole (PRILOSEC) 10 mg ORAL capsule Take 40 mg by mouth once daily. lidocaine 5 %(700 mg/patch) TOPICAL Apply as directed. apply as directed, 12 hours on, then 12 hours off zolpidem (AMBIEN) 10 mg ORAL Tab Take by mouth at bedtime as needed. levothyroxine (SYNTHROID) 75 mcg tablet ? ? ? ALLERGIES: Bees; Codeine ? PERSONAL HISTORY: Social History Socioeconomic History Marital status: Single Spouse name: Not on file Number of children: 2 Tobacco Use Smoking status: Never Smoker Alcohol use: No Drug use: No ? FAMILY HISTORY Problem Relation Age of Onset ? Heart Mother ? ? ID @ 40 ? Psychiatry Father ? ? other (parkinsons) Sister ? ? Psychiatry Sister ? ? schizophrenia ? Psychiatry Brother ? ? schizophrenia ? Psychiatry Brother ? ? depression, comitted suicide ? ? REVIEW OF SYSTEMS: General - denies fevers, slow weight gain over years Cardiovascular - denies chest pain, denies history of heart attack Pulmonary - denies shortness of breath, denies coughing up blood, denies breathing difficulties Gastrointestinal - denies blood in stools, denies abdominal pain, denies swallowing problems, had history of c.diff colitis Neurological - denies numbness/weakness of extremities, denies seizures, denies history of stroke Genitourinary - denies blood in urine, denies burning with urination Hematological - denies spontaneous/prolonged bleeding, denies history of blood transfusions, denies history of deep venous thromboses and/or pulmonary emboli Skin - denies nonhealing skin wounds, denies history of skin cancer Musculoskeletal - has chronic back pain with some sciatica, recent right hip surgery for avascular necrosis Endocrine - has diabetes, has hypothyroidism Psychological ??denies hallucinations, admits to depression ? PHYSICAL EXAMINATION: General: The patient is 68 year old female, well nourished, well hydrated in no acute distress. The patient is oriented to time, place, and person. VITALS: Ht: 5'3 Wt: 192# Head ? Normocephalic. EOM intact with sclera clear and no icterus noted. Mouth with mucus membranes moist. Neck - supple with no jugular venous distention noted. Trachea is midline. No masses noted. Lungs ? clear to auscultation. Normal breath sounds. No rales/rhonchi/wheezing noted. No labored breathing noted, such as retractions. No cough heard. Heart ? normal S1 and S2 auscultated. No rubs/clicks/murmurs noted. Regular rate. Abdomen ? soft and benign. Normal bowel sounds. Healed incisional sites, hernia noted upper abdomen, patient with rectus diastasis. No abdominal bruits noted. Extremities ? no calf tenderness noted. No pitting edema noted. Skin ? normal skin integrity. Neurological ? gait normal, no focal deficits noted Psych ? calm and appropriatete ? ? Assessment IMPRESSION: diarrhea/fecal urgency, lower abdominal pain, history of colon cancer ? PLAN: I have discussed the above with the patient. I have offered colonoscopy, possible biopsies. She wants to consider other test prior to this. Will evaluated with stool studies. I will contact patient with results. However, if negative, she may have to consider colonoscopy, she understands. I have explained the procedure to the patient. I have counseled the patient as to the risks of the procedure, including but not limited to: infection, bleeding, perforation of the GI tract, injury to any intraabdominal organs such as the liver/spleen, inability to complete the procedure, complications of anesthesia, etc. ? the patient understands. The patient agrees with above plan. ? I have answered all questions to the patient?s satisfaction and the patient has no further questions. . Diagnoses: (R19.7) Diarrhea, unspecified type (primary encounter diagnosis) (Z85.038) History of colon cancer, stage II Return to Clinic: The patient is instructed to follow-up with me as per needed as above. ?
== END 2019-01-21 12:44 | disposition home or self-care (01) ==
LOC: EN 10:10 → AC 10:12
PROVIDERS: Family Provider Family Medicine; PCP Family Medicine; Referring Provider Surgery; Visit Provider Surgery
PROC: 0DJD8ZZ Inspection of Lower Intestinal Tract, Via Natural or Artificial Opening Endoscopic (ICD-10-PCS; CPT 45378; principal; 2019-01-21 11:55)
DX: K57.30 Diverticulosis of large intestine without perforation or abscess without bleeding (principal); R15.2 Fecal urgency; R19.7 Diarrhea, unspecified; K64.8 Other hemorrhoids; E11.9 Type 2 diabetes mellitus without complications; E03.9 Hypothyroidism, unspecified; H40.9 Unspecified glaucoma; K21.9 Gastro-esophageal reflux disease without esophagitis; Z78.0 Asymptomatic menopausal state; Z79.84 Long term (current) use of oral hypoglycemic drugs; Z79.899 Other long term (current) drug therapy; Z88.5 Allergy status to narcotic agent; Z85.038 Personal history of other malignant neoplasm of large intestine; Z86.2 Personal history of diseases of the blood and blood-forming organs and certain disorders involving the immune mechanism; Z96.641 Presence of right artificial hip joint
CPT/HCPCS: 45380; 88305; J7120

== ENCOUNTER → 2019-04-01 09:29 | Outpatient (CLI) | payer MEDICARE, MEDICAID, SELFPAY ==
[2019-01-21 10:31] VITALS: BMI 32.7
[2019-04-01 12:25] LABS: Absolute Lymphocyte Count 2.82 X10^3/uL (0.83-4.51); Absolute Neutrophil Count 4.1 X10^3/uL (2.0-7.7); Basophil# 0.05 X10^3/uL; Basophil% 0.6 % (0-1); Eosinophil# 0.16 X10^3/uL; Eosinophils% 2.1 % (0-5); Hematocrit 39.2 % (37-47); Hemoglobin 12.4 g/dL (12.0-15.0); Lymphocyte # 2.82 X10^3/ul (4.0); Lymphocyte % 36.2 % (19-41); Mean Corp Hgb Conc 31.6 g/dL (32-36); Mean Corpuscular Hgb 27.2 pg (27.0-32.0); Mean Platelet Vol. 12.3 fl (6.2-12.0); Monocyte# 0.66 X10^3/uL; Monocyte% 8.5 % (0-10); NRBC Flagged by Analyzer 0 % (0-5); Neutrophil # 4.06 X10^3/uL (2.7-7.7); Platelet Count 184 K/mm3 (150-450); RBC Distribution Width CV 15.8 % (11.6-14.6); RBC Distribution Width SD 49.9 fl (35.1-43.9); Red Blood Count 4.56 M/mm3 (4.2-5.4); White Blood Count 7.8 K/mm3 (4.4-11.0)
[2019-04-01 12:36] LABS: Vitamin D,25 Hydroxy 48.8 ng/mL (29.95-100.01)
[2019-04-01 12:56] LABS: ALB/GLOB Ratio 0.8 RATIO (0.9-2.4); AST(SGOT) 91 U/L (15-37); Alanine Aminotransfer ALT/SGPT 77 U/L (13-56); Albumin, Serum 3.3 g/dL (3.2-5.0); Alkaline Phosphatase 154 U/L (45-117); Anion Gap 7 (5-15); BUN 11 mg/dL (7-18); BUN/Creat Ratio 11.4 RATIO (10-20); Calcium,Total 9.1 mg/dL (8.5-10.1); Chloride 106 mmol/L (98-107); Cholesterol 179 mg/dL (200); Creatinine, Serum 0.97 mg/dL (0.55-1.02); EST Glomerular Filtration Rate 60 mL/min (>60); Est Glom Filt Rate - Afr Amer 73 mL/min (>60); Globulin 4.2 g/dL (2.2-4.2); Glucose 155 mg/dL (74-106); High Density Lipoprotein 37 mg/dL; Protein, Total 7.5 g/dL (6.4-8.2); Sodium Level 138 mmol/L (136-145); Triglycerides 191 mg/dL; Very Low Density Lipoprotein 38 mg/dL (5-40)
== END ==
PROVIDERS: Family Provider Family Medicine; PCP Family Medicine; Visit Provider Family Medicine
DX: E55.9 Vitamin D deficiency, unspecified (principal); C18.9 Malignant neoplasm of colon, unspecified; E11.9 Type 2 diabetes mellitus without complications
CPT/HCPCS: 36415; 80053; 80061; 82306; 84443; 85025

== ENCOUNTER → 2019-06-26 10:55 | Outpatient (CLI) | payer MEDICARE, MEDICAID, SELFPAY ==
[2019-01-21 10:31] VITALS: BMI 32.7
[2019-06-26 14:23] LABS: AST(SGOT) 85 U/L (15-37); Alanine Aminotransfer ALT/SGPT 74 U/L (13-56); Albumin, Serum 3.6 g/dL (3.2-5.0); Alkaline Phosphatase 149 U/L (45-117); Anion Gap 8 (5-15); BUN 13 mg/dL (7-18); Calcium,Total 9.1 mg/dL (8.5-10.1); Chloride 105 mmol/L (98-107); Creatinine, Serum 1.08 mg/dL (0.55-1.02); EST Glomerular Filtration Rate 53 mL/min (>60); Est Glom Filt Rate - Afr Amer 64 mL/min (>60); Globulin 3.5 g/dL (2.2-4.2); Glucose 143 mg/dL (74-106); Potassium 4.1 mmol/L (3.5-5.1); Protein, Total 7.1 g/dL (6.4-8.2); Sodium Level 139 mmol/L (136-145)
== END ==
PROVIDERS: Family Provider Family Medicine; PCP Family Medicine; Referring Provider Family Medicine; Visit Provider Family Medicine
DX: E11.9 Type 2 diabetes mellitus without complications (principal)
CPT/HCPCS: 36415; 80053

== ENCOUNTER → 2019-07-18 08:17 | Outpatient (CLI) | payer MEDICARE, MEDICAID, SELFPAY ==
[2019-01-21 10:31] VITALS: BMI 32.7
--- NOTE | 2019-07-18 08:22 | BI_ITS ---
MAMMOGRAPHY - BILATERAL SCREENING REASON FOR EXAM: Female, 68 years old. Routine annual screening examination. PERTINENT HISTORY: Mother with breast cancer. TECHNIQUE: Digital bilateral breast edwin (3D mammographic acquisition) in the CC and MLO projections. 2-D mediolateral oblique (MLO) and craniocaudad (CC) views of both breasts were obtained. CAD: Full Field Digital Mammography with Computer Added Detection was performed. COMPARISON: Comparison is made with prior examination dated July 12, 2018 and July 11, 2017. FINDINGS: Breast Composition: There are scattered areas of fibroglandular density. There are no dominant masses or suspicious calcifications. Stable benign-appearing bilateral axillary lymph nodes. No other significant abnormalities are identified. There has been no significant change since the prior study. BI/SCREEN MAMM (CAD) W/EDWIN BILAT IMPRESSION: Stable bilateral screening mammogram. Yearly follow-up mammogram recommended. (A) ASSESSMENT CATEGORY: BIRADS Category 1: Negative. A letter regarding these results will be sent to the patient by the facility within 30 days. Approximately 10% of breast cancers are not detected by mammography. A normal mammogram should not delay biopsy of a clinically suspicious abnormality. [id number] Electronically Signed: Amor Luevano, at 9:55 EST , Service support ,
--- NOTE | 2019-07-18 08:40 | BD_ITS ---
STUDY: DUAL ENERGY X-RAY ABSORPTIOMETRY / DXA REASON FOR EXAM: Female, 68 years old. Age of eula- 53. 198.7# and 63.5 and quot; a loss of 1.5 and quot; per pat. Past hx of taking an HRT. Past hx of taking Actonel. Has injections in her back. Takes levothyroxin, 100mg of calcium and a multi-vit. Type II diabetic takes metformin. Exercises a little. Hx of a right total hip. Hx of Colon CA. TECHNIQUE: Bone Mineral Density (BMD) measurements of lumbar spine and left hip were obtained. COMPARISON: Comparison is made with prior study dated July 07, 2016 and January 22, 2013. FINDINGS: Lumbar Spine (L1-L4): g/cm2 (1.086) / T-score (-0.7) / Z-score (1.0) Findings are suggestive of normal bone density with a low fracture risk. Left Femur Total: g/cm2 (0.750) / T-score (-2.0) / Z-score (-0.5) Left Femoral Neck: g/cm2 (0.678) / T-score (-2.6) / Z-score (-0.9) The T-Scores on the most recent prior examination were: Lumbar Spine (L1-L4): There has been worsening of bone density since the previous examination. Left Femur Total: which represents a worsening of 3%. BD/Dexa Bone Density Study IMPRESSION: The patient is considered osteoporotic as outlined below according to World [place] Organization (WHO) criteria with a high fracture risk. There has been worsening of bone density since the previous examination. Reference Information: The T-score is the number of standard deviations above or below the standard which is normal for young adults at their peak bone mineral density. The World Health Organization (WHO) interprets the T-scores as follows: Above -1 Normal bone density Between -1 and -2.5 Osteopenia Equal to / or below -2.5 Osteoporosis As a practical clinical guideline, osteopenia may be graded as follows: Mild -1 through -1.5 Moderate -1.6 through -2.0 Severe -2.1 through -2.4 The Z-score is the number of standard deviations above or below age-matched controls. A Z-score of less than -1.5 would be considered abnormal. References: 1. NIH Osteoporosis and Related Bone Diseases http://www.osteo.org 2. International Society for Clinical Densitometry http://www.iscd.org 3. National Osteoporosis Foundation http://www.nof.org Electronically Signed: Amor Luevano, at 8:58 EST , Service support ,
== END ==
PROVIDERS: Family Provider Family Medicine; PCP Family Medicine; Referring Provider Family Medicine; Visit Provider Family Medicine
DX: Z00.00 Encounter for general adult medical examination without abnormal findings (principal); Z12.31 Encounter for screening mammogram for malignant neoplasm of breast; Z78.0 Asymptomatic menopausal state
CPT/HCPCS: 77063; 77067; 77080

== ENCOUNTER → 2019-11-07 09:47 | Outpatient (CLI) | payer MEDICARE, MEDICAID, SELFPAY ==
[2019-01-21 10:31] VITALS: BMI 32.7
[2019-11-07 12:16] LABS: Absolute Lymphocyte Count 2.32 X10^3/uL (0.83-4.51); Absolute Neutrophil Count 4.2 X10^3/uL (2.0-7.7); Basophil# 0.04 X10^3/uL; Basophil% 0.5 % (0-1); Eosinophil# 0.11 X10^3/uL; Eosinophils% 1.5 % (0-5); Hemoglobin 11.7 g/dL (12.0-15.0); Lymphocyte # 2.32 X10^3/ul (4.0); Lymphocyte % 31.6 % (19-41); Mean Corp Hgb Conc 30.8 g/dL (32-36); Mean Corpuscular Hgb 25.9 pg (27.0-32.0); Mean Corpuscular Volume 84.3 fL (81-99); Mean Platelet Vol. 12.4 fl (6.2-12.0); Monocyte# 0.58 X10^3/uL; Monocyte% 7.9 % (0-10); NRBC Flagged by Analyzer 0 % (0-5); Neutrophil # 4.23 X10^3/uL (2.7-7.7); Neutrophil % 57.7 % (47-70); Platelet Count 160 K/mm3 (150-450); RBC Distribution Width SD 49.1 fl (35.1-43.9); Red Blood Count 4.51 M/mm3 (4.2-5.4); White Blood Count 7.3 K/mm3 (4.4-11.0)
[2019-11-07 12:26] LABS: Hemoglobin A1c 9.8 % (4.2-6.3)
[2019-11-07 12:29] LABS: ALB/GLOB Ratio 0.8 RATIO (0.9-2.4); AST(SGOT) 136 U/L (15-37); Alanine Aminotransfer ALT/SGPT 114 U/L (13-56); Albumin, Serum 3.4 g/dL (3.2-5.0); Alkaline Phosphatase 172 U/L (45-117); Anion Gap 8 (5-15); BUN 10 mg/dL (7-18); Calcium,Total 9.4 mg/dL (8.5-10.1); Chloride 105 mmol/L (98-107); Cholesterol 182 mg/dL (200); EST Glomerular Filtration Rate 58 mL/min (>60); Est Glom Filt Rate - Afr Amer 71 mL/min (>60); Globulin 4.2 g/dL (2.2-4.2); Glucose 253 mg/dL (74-106); High Density Lipoprotein 31 mg/dL; Protein, Total 7.6 g/dL (6.4-8.2); Sodium Level 138 mmol/L (136-145); Thyroid Stim Hormone (TSH) 4.04 uIU/mL (0.358-3.74); Triglycerides 187 mg/dL; Very Low Density Lipoprotein 37 mg/dL (5-40)
[2019-11-12 10:21] LABS: Carcinoembryonic Antigen 5.3 ng/mL (0.0-4.7)
== END ==
PROVIDERS: PCP Family Medicine; Visit Provider Family Medicine
DX: I10 Essential (primary) hypertension (principal); E11.9 Type 2 diabetes mellitus without complications; K46.9 Unspecified abdominal hernia without obstruction or gangrene; R79.89 Other specified abnormal findings of blood chemistry
CPT/HCPCS: 36415; 80053; 80061; 82378; 83036; 84443; 85025

== ENCOUNTER → 2019-11-11 16:30 | Outpatient (CLI) | payer MEDICARE, MEDICAID, SELFPAY ==
[2019-01-21 10:31] VITALS: BMI 32.7
--- NOTE | 2019-11-11 16:33 | CT_ITS ---
STUDY: CT ABDOMEN AND PELVIS WITH CONTRAST REASON FOR EXAM: Female, 69 years old. Elevated LFT''s, right sided abdomen pain intermittently x 6 months. Hx colon cancer with right hemicolectomy (2013), hypertension, diabetes. RADIATION DOSAGE (If Supplied By Facility): CTDIvol = ( 22.63 ) mGy, DLP = ( 1220.77 ) mGycm TECHNIQUE: Transaxial images were obtained from the dome of the diaphragm to the symphysis pubis with oral contrast. Oral and amp; IV Gastrografin and amp; 100mL Isovue-300 was administered. Sagittal and coronal images were reconstructed. Individualized dose optimization techniques were used for this CT. COMPARISON: 09/22/2014. FINDINGS: The visualized lung bases are unremarkable. The visualized portions of the heart are within normal limits. There is decreased attenuation of the liver consistent with steatosis. There is hepatomegaly. There are multiple gallstones. There is moderate splenomegaly. Normal pancreas. Normal bilateral adrenal glands. Normal right kidney. Normal left kidney. Normal visualized stomach. Normal small intestine. Previous partial right colectomy, otherwise normal colon. Stable large complex ventral wall hernia containing significant components of fat and portions of the transverse colon but without evidence for obstruction. Previously this certainly did not contain bowel loops. Normal abdominal aorta. Normal inferior vena cava. Normal retroperitoneum. Normal urinary bladder. There is atrophy of the uterus. There are diffuse degenerative changes of the visualized lumbar spine. CT/Abdomen/Pelvis WITH Contrast IMPRESSION: Large complex ventral wall hernia containing significant components of fat and portions of the transverse colon but without evidence for obstruction. Previously this certainly did not contain bowel loops. No other changes or acute abnormalities. Fatty liver with hepatomegaly. Electronically Signed: Tanner Holcomb MD at 19:59 EDT , Service support ,
== END ==
PROVIDERS: PCP Family Medicine; Visit Provider Family Medicine
DX: R79.89 Other specified abnormal findings of blood chemistry (principal)
CPT/HCPCS: 74177; Q9967

== ENCOUNTER → 2020-02-03 08:52 | Outpatient (CLI) | payer MEDICARE, MEDICAID, SELFPAY ==
[2019-01-21 10:31] VITALS: BMI 32.7
[2020-02-03 12:39] LABS: Absolute Lymphocyte Count 1.94 X10^3/uL (0.83-4.51); Absolute Neutrophil Count 4.4 X10^3/uL (2.0-7.7); Basophil# 0.03 X10^3/uL; Basophil% 0.4 % (0-1); Eosinophil# 0.11 X10^3/uL; Eosinophils% 1.6 % (0-5); Hematocrit 36.7 % (37-47); Lymphocyte # 1.94 X10^3/ul (4.0); Lymphocyte % 27.7 % (19-41); Mean Corpuscular Hgb 25.4 pg (27.0-32.0); Mean Corpuscular Volume 84.8 fL (81-99); Mean Platelet Vol. 12.3 fl (6.2-12.0); Monocyte# 0.52 X10^3/uL; Monocyte% 7.4 % (0-10); NRBC Flagged by Analyzer 0 % (0-5); Neutrophil # 4.36 X10^3/uL (2.7-7.7); Neutrophil % 62.2 % (47-70); Platelet Count 158 K/mm3 (150-450); RBC Distribution Width CV 14.8 % (11.6-14.6); RBC Distribution Width SD 45.4 fl (35.1-43.9); Red Blood Count 4.33 M/mm3 (4.2-5.4)
[2020-02-03 13:05] LABS: ALB/GLOB Ratio 0.8 RATIO (0.9-2.4); AST(SGOT) 103 U/L (15-37); Alanine Aminotransfer ALT/SGPT 100 U/L (13-56); Albumin, Serum 3.3 g/dL (3.2-5.0); Alkaline Phosphatase 165 U/L (45-117); Anion Gap 8 (5-15); BUN 12 mg/dL (7-18); BUN/Creat Ratio 12.4 RATIO (10-20); Calcium,Total 9.6 mg/dL (8.5-10.1); Chloride 103 mmol/L (98-107); Cholesterol 158 mg/dL (200); Creatinine, Serum 0.97 mg/dL (0.55-1.02); EST Glomerular Filtration Rate 60 mL/min (>60); Est Glom Filt Rate - Afr Amer 73 mL/min (>60); Ferritin 24 ng/mL (8-252); GGTP 155 U/L (5-55); Globulin 4.4 g/dL (2.2-4.2); Glucose 288 mg/dL (74-106); High Density Lipoprotein 33 mg/dL; Potassium 4.2 mmol/L (3.5-5.1); Protein, Total 7.7 g/dL (6.4-8.2); Sodium Level 136 mmol/L (136-145); T4 Free Direct 1.11 ng/dL (0.76-1.46); Thyroid Stim Hormone (TSH) 2.41 uIU/mL (0.358-3.74); Triglycerides 167 mg/dL; Very Low Density Lipoprotein 33 mg/dL (5-40)
[2020-02-04 12:10] LABS: HEPATITIS B SURFACE AG Negative (Negative); Hepatitis A AB, Total Positive (Negative); Hepatitis A IgM Antibody Negative (Negative); Hepatitis B Core AB IgM Negative (Negative); Hepatitis B Core Ab Total Negative (Negative); Hepatitis C Ab <0.1 s/co ratio (0.0-0.9)
[2020-02-04 12:52] LABS: Carcinoembryonic Antigen 5.7 ng/mL (0.0-4.7); Hep B Surface Antibodies Non Reactive (.)
== END ==
PROVIDERS: PCP Family Medicine; Referring Provider Family Medicine; Visit Provider Family Medicine
DX: R79.89 Other specified abnormal findings of blood chemistry (principal); K46.9 Unspecified abdominal hernia without obstruction or gangrene; E11.9 Type 2 diabetes mellitus without complications
CPT/HCPCS: 36415; 80053; 80061; 82378; 82728; 82977; 84439; 84443; 85025; 86704; 86705; 86706; 86708; 86709; 86803; 87340

== ENCOUNTER → 2020-05-04 08:48 | Outpatient (CLI) | payer MEDICARE, MEDICAID, SELFPAY ==
[2020-02-18 13:25] VITALS: BMI 32.7
[2020-05-04 10:35] LABS: Hematocrit 34.4 % (37-47); Hemoglobin 9.8 g/dL (12.0-15.0); Mean Corp Hgb Conc 28.5 g/dL (32-36); Mean Corpuscular Hgb 22.2 pg (27.0-32.0); Mean Corpuscular Volume 77.8 fL (81-99); Mean Platelet Vol. 11.5 fl (6.2-12.0); Platelet Count 162 K/mm3 (150-450); RBC Distribution Width CV 17.5 % (11.6-14.6); RBC Distribution Width SD 48.3 fl (35.1-43.9); Red Blood Count 4.42 M/mm3 (4.2-5.4); White Blood Count 7.6 K/mm3 (4.4-11.0)
[2020-05-04 11:38] LABS: ALB/GLOB Ratio 0.8 RATIO (0.9-2.4); AST(SGOT) 72 U/L (15-37); Alanine Aminotransfer ALT/SGPT 72 U/L (13-56); Albumin, Serum 3.3 g/dL (3.2-5.0); Alkaline Phosphatase 144 U/L (45-117); Anion Gap 10 (5-15); BUN 15 mg/dL (7-18); BUN/Creat Ratio 14.6 RATIO (10-20); Calcium,Total 9.3 mg/dL (8.5-10.1); Chloride 106 mmol/L (98-107); Cholesterol 151 mg/dL (200); Creatinine, Serum 1.03 mg/dL (0.55-1.02); EST Glomerular Filtration Rate 56 mL/min (>60); Est Glom Filt Rate - Afr Amer 68 mL/min (>60); Ferritin 17 ng/mL (8-252); GGTP 110 U/L (5-55); Globulin 4.3 g/dL (2.2-4.2); Glucose 239 mg/dL (74-106); High Density Lipoprotein 36 mg/dL; Iron 27 ug/dL (50-170); Potassium 4.2 mmol/L (3.5-5.1); Protein, Total 7.6 g/dL (6.4-8.2); Sodium Level 139 mmol/L (136-145); Triglycerides 158 mg/dL; Very Low Density Lipoprotein 32 mg/dL (5-40)
== END ==
PROVIDERS: PCP Family Medicine; Visit Provider Family Medicine
DX: R79.89 Other specified abnormal findings of blood chemistry (principal); E11.9 Type 2 diabetes mellitus without complications
CPT/HCPCS: 36415; 80053; 80061; 82728; 82977; 83540; 85027

== ENCOUNTER → 2020-07-13 13:04 | Outpatient (CLI) | payer MEDICARE, MEDICAID, SELFPAY ==
[2020-02-18 13:25] VITALS: BMI 32.7
[2020-07-13 15:38] LABS: Hematocrit 41.2 % (37-47); Hemoglobin 12.4 g/dL (12.0-15.0); Mean Corp Hgb Conc 30.1 g/dL (32-36); Mean Corpuscular Hgb 24.8 pg (27.0-32.0); Mean Corpuscular Volume 82.2 fL (81-99); Mean Platelet Vol. 10.7 fl (6.2-12.0); POSITIVE MORPHOLOGY YES; Platelet Count 124 K/mm3 (150-450); RBC Distribution Width SD 63.1 fl (35.1-43.9); Red Blood Count 5.01 M/mm3 (4.2-5.4); White Blood Count 5.7 K/mm3 (4.4-11.0)
[2020-07-13 15:41] LABS: Scan Indicated on CBC? Y/N YES- FLAGS NOTED
[2020-07-13 16:05] LABS: ALB/GLOB Ratio 0.8 RATIO (0.9-2.4); AST(SGOT) 72 U/L (15-37); Alanine Aminotransfer ALT/SGPT 91 U/L (13-56); Albumin, Serum 3.3 g/dL (3.2-5.0); Alkaline Phosphatase 122 U/L (45-117); Anion Gap 7 (5-15); BUN 13 mg/dL (7-18); BUN/Creat Ratio 13.9 RATIO (10-20); Calcium,Total 9.2 mg/dL (8.5-10.1); Chloride 107 mmol/L (98-107); Creatinine, Serum 0.94 mg/dL (0.55-1.02); EST Glomerular Filtration Rate 62 mL/min (>60); Est Glom Filt Rate - Afr Amer 76 mL/min (>60); Ferritin 57 ng/mL (8-252); Globulin 4.2 g/dL (2.2-4.2); Glucose 214 mg/dL (74-106); Iron 41 ug/dL (50-170); Potassium 4.1 mmol/L (3.5-5.1); Protein, Total 7.5 g/dL (6.4-8.2); Sodium Level 139 mmol/L (136-145)
[2020-07-13 16:20] LABS: Differential Comment SCANNED
== END ==
PROVIDERS: PCP Family Medicine; Referring Provider Family Medicine; Visit Provider Family Medicine
DX: D64.9 Anemia, unspecified (principal)
CPT/HCPCS: 36415; 80053; 82728; 83540; 85027

== ENCOUNTER → 2020-07-22 12:28 | Outpatient (CLI) | payer MEDICARE, MEDICAID, SELFPAY ==
[2020-02-18 13:25] VITALS: BMI 32.7
--- NOTE | 2020-07-22 12:29 | BI_ITS ---
MAMMOGRAPHY - BILATERAL SCREENING REASON FOR EXAM: Female, 69 years old. Routine annual screening examination. PERTINENT HISTORY: Mother with breast cancer. Aunt with breast cancer. TECHNIQUE: Digital bilateral breast edwin (3D mammographic acquisition) in the CC and MLO projections. 2-D mediolateral oblique (MLO) and craniocaudad (CC) views of both breasts were obtained. CAD: Full Field Digital Mammography with Computer Added Detection was performed. COMPARISON: Comparison is made with prior study dated 07/18/2019 and 07/12/2018. FINDINGS: Breast Composition: There are scattered areas of fibroglandular density. There are no dominant masses or suspicious calcifications. Small benign appearing bilateral axillary lymph nodes. No other significant abnormalities are identified. There has been no significant change since the prior study. BI/SCRN MAMM (CAD)W/EDWIN BILAT IMPRESSION: Stable bilateral screening mammogram. Yearly follow-up mammogram recommended. (A) ASSESSMENT CATEGORY: BIRADS Category 2: Benign. A letter regarding these results will be sent to the patient by the facility within 30 days. Approximately 10% of breast cancers are not detected by mammography. A normal mammogram should not delay biopsy of a clinically suspicious abnormality. [id number] Electronically Signed: Amor Luevano, at 13:33 EST , Service support ,
== END ==
PROVIDERS: PCP Family Medicine; Referring Provider Family Medicine; Visit Provider Family Medicine
DX: Z12.31 Encounter for screening mammogram for malignant neoplasm of breast (principal); Z80.3 Family history of malignant neoplasm of breast
CPT/HCPCS: 77063; 77067

== ENCOUNTER 2020-09-15 10:23 | Outpatient (RCR) | payer MEDICARE, MEDICAID, SELFPAY ==
[2020-02-18 13:25] VITALS: BMI 32.7
[2020-09-15] MEDS: COVID-19 VACC, MRNA(PFIZER)/PF 30 MCG/0.3 ML SYRINGE IM (17:53)
[2020-10-06] MEDS: COVID-19 VACC, MRNA(PFIZER)/PF 30 MCG/0.3 ML SYRINGE IM (17:19)
== END 2020-12-15 23:59 ==
LOC: IMMUN 10:23
PROVIDERS: PCP Family Medicine; Visit Provider Family Medicine
DX: Z23 Encounter for immunization (principal)
CPT/HCPCS: 0001A; 0002A; 91300

== ENCOUNTER → 2020-10-13 10:04 | Outpatient (CLI) | payer MEDICARE, MEDICAID, SELFPAY ==
[2020-02-18 13:25] VITALS: BMI 32.7
[2020-10-13 12:41] LABS: ALB/GLOB Ratio 0.8 RATIO (0.9-2.4); AST(SGOT) 66 U/L (15-37); Alanine Aminotransfer ALT/SGPT 75 U/L (13-56); Albumin, Serum 3.5 g/dL (3.2-5.0); Alkaline Phosphatase 126 U/L (45-117); Anion Gap 3 (5-15); BUN 13 mg/dL (7-18); BUN/Creat Ratio 12.7 RATIO (10-20); Calcium,Total 9.5 mg/dL (8.5-10.1); Chloride 106 mmol/L (98-107); Cholesterol 189 mg/dL (200); Creatinine, Serum 1.02 mg/dL (0.55-1.02); EST Glomerular Filtration Rate 57 mL/min (>60); Est Glom Filt Rate - Afr Amer 69 mL/min (>60); Globulin 4.2 g/dL (2.2-4.2); Glucose 187 mg/dL (74-106); High Density Lipoprotein 37 mg/dL; Potassium 4.1 mmol/L (3.5-5.1); Protein, Total 7.7 g/dL (6.4-8.2); Sodium Level 137 mmol/L (136-145); Thyroid Stim Hormone (TSH) 1.43 uIU/mL (0.358-3.74); Triglycerides 216 mg/dL; Very Low Density Lipoprotein 43 mg/dL (5-40)
== END ==
PROVIDERS: PCP Family Medicine; Visit Provider Family Medicine
DX: E03.9 Hypothyroidism, unspecified (principal); E11.69 Type 2 diabetes mellitus with other specified complication; R79.89 Other specified abnormal findings of blood chemistry
CPT/HCPCS: 36415; 80053; 80061; 84443

== ENCOUNTER → 2020-10-21 15:15 | Outpatient (CLI) | payer MEDICARE, MEDICAID, SELFPAY ==
[2020-02-18 13:25] VITALS: BMI 32.7
--- NOTE | 2020-10-21 11:20 | LES_PTH ---
PATIENT: KERWIN VICK LOC: [facility] U#:[id number] AGE/SX: 74/F ROOM: RE10/21/[address]: Dr. Sivakumar Berger MD : 1950 BED: DIS: SPEC #: [id number] RECD: 10/21/20 14:57 STATUS: NOY CYNTHIA #: [id number] FAIZA: 10/21/20 11:[address]: Sivakumar Berger DEPT: SURGICAL PATHOLOGY RECD BY: Yue Lang Tissues: Skin of leg, NOS Procedures: Surgery Specimen Level IV HEADER OPERATION: Skin lesion excision PRE-OP DIAGNOSIS: Rule out SCC TISSUE SUBMITTED: Left leg MICROSCOPIC DIAGNOSIS Lesion of left leg, biopsy: Actinic change. Solar elastosis. Epidermal inclusion cyst. AM:meron 10/23/2020 MICROSCOPIC DESCRIPTION Slides are reviewed. GROSS DESCRIPTION Received is one container labeled with the patient's name and not further designated. The specimen consists of a piece of nails-white skin measuring 2 x 1.2 cm and up to 0.3 cm in thickness. There is a nails, indurated lesion on the surface measuring 1.5 x 1.2 cm. The specimen is inked, serially sectioned and submitted entirely in two cassettes. Cassette 1 contains the tip of the skin ellipse. / SJ:rg 10/22/20 TC:5 CPT: 75718
== END ==
PROVIDERS: PCP Family Medicine; Referring Provider Family Medicine; Visit Provider Family Medicine
DX: L57.8 Other skin changes due to chronic exposure to nonionizing radiation (principal); L72.0 Epidermal cyst
CPT/HCPCS: 88305

== ENCOUNTER → 2021-04-15 09:42 | Outpatient (CLI) | payer MEDICARE, MEDICAID, SELFPAY ==
[2021-04-15 12:41] LABS: ALB/GLOB Ratio 0.8 RATIO (0.9-2.4); AST(SGOT) 60 U/L (15-37); Alanine Aminotransfer ALT/SGPT 80 U/L (13-56); Albumin, Serum 3.3 g/dL (3.2-5.0); Alkaline Phosphatase 119 U/L (45-117); Anion Gap 6 (5-15); BUN 14 mg/dL (7-18); BUN/Creat Ratio 14.8 RATIO (10-20); Calcium,Total 9.2 mg/dL (8.5-10.1); Chloride 103 mmol/L (98-107); Cholesterol 208 mg/dL (200); Creatinine, Serum 0.95 mg/dL (0.55-1.02); EST Glomerular Filtration Rate 62 mL/min (>60); Est Glom Filt Rate - Afr Amer 75 mL/min (>60); Globulin 4.3 g/dL (2.2-4.2); Glucose 181 mg/dL (74-106); High Density Lipoprotein 46 mg/dL; Potassium 4.2 mmol/L (3.5-5.1); Protein, Total 7.6 g/dL (6.4-8.2); Sodium Level 138 mmol/L (136-145); Thyroid Stim Hormone (TSH) 1.41 uIU/mL (0.358-3.74); Triglycerides 173 mg/dL; Very Low Density Lipoprotein 35 mg/dL (5-40)
[2021-04-16 13:47] LABS: Carcinoembryonic Antigen 5.5 ng/mL (0.0-4.7)
== END ==
PROVIDERS: PCP Family Medicine; Referring Provider Family Medicine; Visit Provider Family Medicine
DX: E03.9 Hypothyroidism, unspecified (principal); C18.9 Malignant neoplasm of colon, unspecified; E11.69 Type 2 diabetes mellitus with other specified complication
CPT/HCPCS: 36415; 80053; 80061; 82378; 84443

== ENCOUNTER 2021-10-14 10:24 | Outpatient (CLI) | payer MEDICARE, MEDICAID, SELFPAY ==
[2021-10-14 12:08] LABS: Hematocrit 41.5 % (37-47); Immature Platelet Fraction 8.1 % (1.0-7.9); Mean Corp Hgb Conc 31.3 g/dL (32-36); Mean Corpuscular Hgb 28.3 pg (27.0-32.0); Mean Corpuscular Volume 90.4 fL (81-99); Mean Platelet Vol. 11.6 fl (6.2-12.0); Platelet Count 107 K/mm3 (150-450); RBC Distribution Width CV 15.1 % (11.6-14.6); RET-HE 32.5 pg (30-35); Red Blood Count 4.59 M/mm3 (4.2-5.4); Reticulocyte Count 2.17 % (0.5-1.5); White Blood Count 6.7 K/mm3 (4.4-11.0)
[2021-10-14 12:18] LABS: Vitamin D,25 Hydroxy 50.2 ng/mL
[2021-10-14 12:29] LABS: Anion Gap 5 (5-15); BUN 7 mg/dL (7-18); BUN/Creat Ratio 7.2 RATIO (10-20); Calcium,Total 8.5 mg/dL (8.5-10.1); Chloride 107 mmol/L (98-107); Creatinine, Serum 0.97 mg/dL (0.55-1.02); EST Glomerular Filtration Rate 60 mL/min (>60); Est Glom Filt Rate - Afr Amer 73 mL/min (>60); Ferritin 60 ng/mL (8-252); Glucose 112 mg/dL (74-106); Iron 62 ug/dL (50-170); Potassium 4.1 mmol/L (3.5-5.1); Sodium Level 139 mmol/L (136-145); Thyroid Stim Hormone (TSH) 1.15 uIU/mL (0.358-3.74)
[2021-10-14 12:31] LABS: PTHIN 142.7 pg/mL (18.4-80.1)
[2021-10-14 12:39] LABS: Hemoglobin A1c 6.9 % (3.8-5.6)
== END 2021-10-14 23:59 | disposition home or self-care (01) ==
LOC: MFPLAB 10:25
PROVIDERS: PCP Family Medicine; Referring Provider Family Medicine; Visit Provider Family Medicine
DX: M81.0 Age-related osteoporosis without current pathological fracture (principal); D64.9 Anemia, unspecified
CPT/HCPCS: 36415; 80048; 82306; 82330; 82728; 83036; 83540; 83970; 84443; 85027; 85045

== ENCOUNTER → 2021-11-04 | Outpatient (CLI) | payer MEDICARE, MEDICAID, SELFPAY ==
--- NOTE | 2021-11-04 09:15 | BI_ITS ---
MAMMOGRAPHY - BILATERAL SCREENING REASON FOR EXAM: Female, 71 years old. Routine annual screening examination. PERTINENT HISTORY: Mother with breast cancer. Aunt with breast cancer. TECHNIQUE: Digital bilateral breast edwin (3D mammographic acquisition) in the CC and MLO projections. 2-D mediolateral oblique (MLO) and craniocaudad (CC) views of both breasts were obtained. CAD: Full Field Digital Mammography with Computer Added Detection was performed. COMPARISON: Comparison is made with prior study dated 07/22/2020 and 07/18/2019. FINDINGS: Breast Composition: There are scattered areas of fibroglandular density. There are no dominant masses or suspicious calcifications. Stable small benign-appearing bilateral axillary lymph nodes. No other significant abnormalities are identified. There has been no significant change since the prior study. BI/SCRN MAMM (CAD)W/EDWIN BILAT IMPRESSION: Stable bilateral screening mammogram. Yearly follow-up mammogram recommended. (A) ASSESSMENT CATEGORY: BIRADS Category 2: Benign. A letter regarding these results will be sent to the patient by the facility within 30 days. Approximately 10% of breast cancers are not detected by mammography. A normal mammogram should not delay biopsy of a clinically suspicious abnormality. [id number] Electronically Signed: Amor Luevano MD at 10:03 EDT ,
--- NOTE | 2021-11-04 09:38 | BD_ITS ---
STUDY: DUAL ENERGY X-RAY ABSORPTIOMETRY / DXA REASON FOR EXAM: Female, 71 years old. [id number]. Patient is postmenopausal. TECHNIQUE: Bone Mineral Density (BMD) measurements of lumbar spine and left hip were obtained. COMPARISON: Comparison is made with prior study dated 07/18/2019. FINDINGS: Lumbar Spine (L1-L4): g/cm2 (0.970) / T-score (-0.4) / Z-score (1.8) Findings are suggestive of normal bone density with a low fracture risk. Left Femur Total: g/cm2 (0.685) / T-score (-2.1) / Z-score (-0.4) Left Femoral Neck: g/cm2 (0.548) / T-score (-2.7) / Z-score (-0.7) The T-Scores on the most recent prior examination were: Lumbar Spine (L1-L4): There has been improvement of bone density since the previous examination. Left Femur Total: which represents a worsening of 1%. BD/Dexa Bone Density Study IMPRESSION: The patient is considered osteoporotic as outlined below according to World [place] Organization (WHO) criteria with a high fracture risk. There has been worsening of bone density since the previous examination. Reference Information: The T-score is the number of standard deviations above or below the standard which is normal for young adults at their peak bone mineral density. The World Health Organization (WHO) interprets the T-scores as follows: Above -1 Normal bone density Between -1 and -2.5 Osteopenia Equal to / or below -2.5 Osteoporosis As a practical clinical guideline, osteopenia may be graded as follows: Mild -1 through -1.5 Moderate -1.6 through -2.0 Severe -2.1 through -2.4 The Z-score is the number of standard deviations above or below age-matched controls. A Z-score of less than -1.5 would be considered abnormal. References: 1. NIH Osteoporosis and Related Bone Diseases www osteo.org 2. International Society for Clinical Densitometry www iscd.org 3. National Osteoporosis Foundation www nof.org Electronically Signed: Amor Luevano MD at 14:53 EDT ,
== END | disposition home or self-care (01) ==
LOC: OPBD 09:13
PROVIDERS: PCP Family Medicine; Visit Provider Family Medicine
DX: Z00.00 Encounter for general adult medical examination without abnormal findings (principal); Z12.31 Encounter for screening mammogram for malignant neoplasm of breast; Z80.3 Family history of malignant neoplasm of breast; Z78.0 Asymptomatic menopausal state
CPT/HCPCS: 77063; 77067; 77080

== ENCOUNTER → 2022-01-07 | Outpatient (CLI) | payer MEDICARE, MEDICAID, SELFPAY ==
[2022-01-07 12:50] LABS: PTHIN 55.6 pg/mL (18.4-80.1)
== END | disposition home or self-care (01) ==
LOC: MTLAB 10:33
PROVIDERS: PCP Family Medicine; Referring Provider Family Medicine; Visit Provider Family Medicine
DX: M81.0 Age-related osteoporosis without current pathological fracture (principal)
CPT/HCPCS: 36415; 83970

== ENCOUNTER 2022-01-11 07:33 | Day surgery (SDC) | payer MEDICARE, MEDICAID, SELFPAY ==
[2022-01-11] VITALS (7 sets, daily range): BP systolic 116–136; BP diastolic 51–82; PULSE 90–102; RESP 16–20; TEMP 36.3–37.5; O2SAT 98–100; BMI 29.1
[2022-01-11] MEDS: Lactated Ringers 1,000 ML 15 ML IV (07:45)
[2022-01-11 08:41] LABS: Bedside Glucose 123 mg/dL (74-106)
--- NOTE | 2022-01-11 09:00 | COLBX_PTH ---
PATIENT: KERWIN VICK LOC: EN U#:[id number] AGE/SX: 71/F ROOM: RE01/11/[address]: Dr. Harvey Diez MD : 1950 BED: DIS: 01/11/2022 SPEC #: [id number] RECD: 01/11/22 11:27 STATUS: NOY MARIE #: [id number] FAIZA: 01/11/22 09:[address]: Harvey Diez DEPT: SURGICAL PATHOLOGY RECD BY: Susy Marcos ENTERED: 01/11/22 13:47 SP TYPE: COLON BX OTHR DR: Dr. Sivakumar Berger MD Tissues: Rectum, NOS Procedures: Surgery Specimen Level IV HEADER OPERATION: Colonoscopy with polypectomy and clip ? open access (MAC) PRE-OP DIAGNOSIS: Screening TISSUE SUBMITTED: Rectal polyp MICROSCOPIC DIAGNOSIS Rectal polyp, biopsy: Fragments of tubular adenoma. AM:meron 01/12/2022 MICROSCOPIC DESCRIPTION Slides are reviewed. GROSS DESCRIPTION Received in fixative is one container labeled with the patient's name and designated rectal polyp. The specimen consists of one irregular fragment of light nails soft tissue that measures 0.2 x 0.2 x 0.1 cm. The specimen is totally submitted in one cassette. / SJ:meron 01/11/2022 TC:5 CPT: 95498
--- NOTE | 2022-01-11 09:17 | H&P.OPEN ---
HPI - General HPI Narrative KERWIN VICK, is a 71 F who presents for surveillance colonoscopy. She had her last colonoscopy about 3 years ago and was recommended to repeat in 3 years. As far as I can tell there were no polyps at that time. She is not having any abdominal pain and has no family history of colon cancer. No blood in the stool. [facility] Medical History (Updated 01/05/22 @ 10:16 by Farida Montenegro) Anemia Anxiety Arachnoiditis Arthritis Back pain C. difficile colitis Chest pain on exertion Colon cancer Depression Depression with anxiety Diabetes Diabetes Dyspnea Fibromyalgia Gastric reflux GERD (gastroesophageal reflux disease) Hemorrhoids High cholesterol History of back problems History of echocardiogram History of irregular heartbeat History of pain when walking History of steroid therapy Hypertension Leg cramps Migraine headache Non-smoker Thyroid disease Weakness generalized Wears dentures Wears glasses Home Medications amitriptyline 25 mg tablet 50 mg PO QHS MOOD 10/10/13 [History Last Taken 11/25/13 22:00] zolpidem 12.5 mg tablet,extended release,multiphase 10 mg PO QHS PRN PRN Insomnia 10/10/13 [History Last Taken 11/25/13 22:00] calcium carbonate 600 mg-vitamin D3 10 mcg (400 unit) tablet 1 ea PO DAILY SUPPLEMENT 10/29/13 [History Last Taken 11/25/13 07:00] omeprazole 40 mg capsule,delayed release 1 tab PO DAILY GERD 10/29/13 [History Last Taken 01/21/19] ferrous sulfate 325 mg (65 mg iron) tablet 325 mg PO DAILY SUPPLEMENT 11/14/17 [History Last Taken Unknown] levothyroxine 75 mcg tablet 75 mcg PO DAILY THYROID 11/14/17 [History Last Taken 01/11/22] tramadol 50 mg tablet 50 - 100 mg PO Q6H PRN PRN Moderate Pain (4-5/10) #28 tabs 12/08/17 [Rx Last Taken Unknown] cholecalciferol (vitamin D3) 125 mcg (5,000 unit) capsule 125 mcg PO DAILY 02/18/20 [History Last Taken Unknown] empagliflozin 10 mg tablet (Jardiance) 25 mg PO DAILY 02/18/20 [History Last Taken Unknown] metformin 500 mg tablet 75 mg PO DAILY DM 02/18/20 [History Last Taken Unknown] atorvastatin 80 mg tablet 80 mg PO DAILY 12/07/21 [History Last Taken Unknown] denosumab 60 mg/mL subcutaneous syringe (Prolia) 60 mg subcut [id number] 12/07/21 [History Last Taken Unknown] dulaglutide 1.5 mg/0.5 mL subcutaneous pen injector (Trulicity) 1.5 mg subcut QWEEK 12/07/21 [History Last Taken Unknown] glimepiride 2 mg tablet 4 mg PO DAILY 12/07/21 [History Last Taken Unknown] ascorbic acid (vitamin C) 500 mg tablet (Vitamin C) 500 mg PO DAILY 01/05/22 [History Last Taken Unknown] cyanocobalamin (vitamin B-12) 1,000 mcg tablet (Vitamin B-12) 1,000 mcg PO DAILY 01/05/22 [History Last Taken Unknown] multivitamin 1 tab PO DAILY 01/05/22 [History Last Taken Unknown] omega-3 fatty acids 1,000 mg PO DAILY 01/05/22 [History Last Taken Unknown] Allergy/AdvReac Type Severity Reaction Status Date / Time citalopram [From Celexa] AdvReac Severe HEADACHES Verified 01/11/22 08:00 duloxetine [From Cymbalta] AdvReac Severe Insomnia, Verified 01/11/22 08:00 Constipation gabapentin [From Neurontin] AdvReac Severe Visual Verified 01/11/22 08:00 Disturbances mirtazapine [From Remeron] AdvReac Severe AGGITATION Verified 01/11/22 08:00 pregabalin [From Lyrica] AdvReac Severe LEG Verified 01/11/22 08:00 CRAMPS,NIGHTMARES,WT GAIN codeine AdvReac Upset Verified 01/11/22 08:00 Stomach bee sting AdvReac Anaphylaxis Uncoded 01/11/22 08:00 Family History (Updated 12/07/21 @ 08:39 by Felicitas Ramsey) Mother Arthritis Heart disease Sister Parkinsons Myocardial infarction Obesity Surgical History (Updated 01/05/22 @ 10:16 by Farida Montenegro) History of colectomy History of total right hip replacement Hx of colonoscopy Social History (Updated 02/19/20 @ 09:[address] Harvey Diez MD) Smoking Status: Never smoker alcohol intake: never substance use type: does not use Past Medical/Surgical History Planned Operation Planned Operative Procedure/s: COLONOSCOPY S.O.S: No Previous Hospitalizations/Surgeries HX Hospitalizations: No HX of Surgeries: LEFT CATARACT 2004 D/T ANEMIA NEW DX COLON CA 2013 THR 2018 colonoscopy 2019 Any Problems With Anesthesia: No You/Your Family Experience Fever (Hyperthermia) With Anes: No Cholinesterase deficiency: No Cardiovascular Hx Chest Pain within Last 2 months: No Hx of Irregular Heartbeat and/or Afib: Yes (2013, resolved after anemia resolved) Hx Heart Attack: No Hx Congestive Heart Failure: No Hx Rheumatic Fever: No Hx Hypertension: No (STRESS INDUCED/PAIN) Hx Internal Defibrillator: No Hx Pacemaker: No Hx Cardiac Catheterization: No Hx Cardiac Surgery/Stents/Etc.: No Hx Stress Test: Yes (ECHO 10/2013) Hx Pain in Legs when Walking/Leg Cramps: Yes (has that with the stenosis) Respiratory Chronic Cough: No HX of Shortness of Breath: Yes (d/t anemia 2013, resolved now) Hoarseness: No Hx Chronic Obstructive Pulmonary Disease (COPD): No Hx Asthma: No Hx Emphysema: No Hx Sleep Apnea: No CPAP: No BIPAP: No Hx Respiratory Tract Infection/Cold (presently): No Do You Snore Loudly (louder than talking or can be heard): No Do You Often Feel Tired/ Fatigued/ Sleepy Dring Daytime?: No Has Anyone Observed You Stop Breathing During Sleep?: No Result (for STOP score): Negative Hx Smoking: No Smoking Status: Never smoker Gastrointestinal Hx Gastroesophageal Reflux: Yes Controlled With Meds: Yes Hx Gastrointestinal Disorders: Yes (colon CA) Hx Gastrointestinal Bleed: No Hx Ulcer: Yes (HX) Hx Hiatal Hernia: No Difficulty Chewing/Swallowing: No Special diet followed at home: No Hx Unplanned Weight Loss of 20#: No HX Unplanned Weight Gain of 20#: No Neurological Hx Seizures: No HX Syncope/Blackout Spells/Unconsciousness: Yes (unconscious x1, mowing and hit a rock, hit in eye. was unconcscious) Hx Transient Ischemic Attacks (TIA): No Hx Multiple Sclerosis: No Hx Parkinson's Disease: No Hx Head/Neck Injury: No Hx Headaches: No Hx Back Injury/Pain: Yes (spinal stenosis) Recent Onset of Speech Difficulty: No Restless Legs: No Does patient have nerve stimulator: No Blood Disorder Hx Leukemia: No Bleeding Tendencies: Yes (BRUISES EASILY) Hx Deep Vein Thrombosis: No Hx High Cholesterol: No (borderline?) Blood Transmitted Disease: No Hx Hepatitis: No Hx Cirrhosis: No Hx Anemia: Yes (ON IRON) Hx Blood Disorders: No Reproduction Is Patient Lactating: No Hx Hysterectomy: No Hx Tubal Ligation: No Are You Post Menopause: Yes Genitourinary Hx Renal Disease: No Hx Dialysis: No Musculoskeletal Hx Arthritis: Yes (Lt hand, back) Hx Rheumatoid Arthritis: No Hx Gout: No Recent Onset of an Orthopedic Problem: No Endocrine Hx Diabetes: Yes (ORAL) Insulin: No Thyroid Disease: Yes Hx Steroid Therapy: Yes (09/[address] STERLING) Psycho/Social Hx Substance Use: No Hx Alcohol Use: No Hx Anxiety: No Hx Depression: No Mental Illness: No Hx Dementia: No Miscellaneous Hx Cancer: Yes (COLON CANCER) Recent Exposure to Contagious Disease: No Hx of C-Diff: Yes (2013) Any Loose Teeth: Yes (DENTURES FULL SET) Allergies citalopram [From Celexa] Adverse Reaction (Severe, Verified 01/11/22 08:00) HEADACHES duloxetine [From Cymbalta] Adverse Reaction (Severe, Verified 01/11/22 08:00) Insomnia, Constipation gabapentin [From Neurontin] Adverse Reaction (Severe, Verified 01/11/22 08:00) Visual Disturbances mirtazapine [From Remeron] Adverse Reaction (Severe, Verified 01/11/22 08:00) AGGITATION pregabalin [From Lyrica] Adverse Reaction (Severe, Verified 01/11/22 08:00) LEG CRAMPS,NIGHTMARES,WT GAIN codeine Adverse Reaction (Verified 01/11/22 08:00) Upset Stomach bee sting Adverse Reaction (Uncoded 01/11/22 08:00) Anaphylaxis Maternal: Family History (Updated 12/07/21 @ 08:39 by Felicitas Ramsey) Mother Arthritis Heart disease Sister Parkinsons Myocardial infarction Obesity No pertinent history Paternal: Family History (Updated 12/07/21 @ 08:39 by Felicitas Ramsey) Mother Arthritis Heart disease Sister Parkinsons Myocardial infarction Obesity No pertinent history Sibling: Family History (Updated 12/07/21 @ 08:39 by Felicitas Ramsey) Mother Arthritis Heart disease Sister Parkinsons Myocardial infarction Obesity No pertinent history Discharge Is Pt Admitted From a Residential, or a Detention: No After D/C, Where Do you Plan to Go: Return Home From the PAT History Number of Risk Factors: 7 Vital Signs Vital Signs Vital Signs: 01/11/22 08:00 01/11/22 08:00 Temperature 97.4 F L Temperature Source Temporal Pulse Rate 102 H Respiratory Rate 20 H Respiratory Pattern Normal Blood Pressure 136/82 H Blood Pressure Mean 100 Blood Pressure Source Monitor Blood Pressure Position Semi-Fowlers Blood Pressure Location Left Arm Pulse Ox 98 Oxygen Delivery Method Room Air Weight Weight: 169 lb 12.095 oz Body Mass Index (BMI) 29.1 Physical Exam Const alert and oriented x3 Resp normal respiratory effort and normal air movement Cardio regular rate and regular rhythm GI soft to palpation, non-tender and non-distended Assessment & Plan Assessment/Plan (1) Encounter for screening for malignant neoplasm of colon: PLAN: I explained endoscopy in detail to the patient. I explained the risks including but not limited to stroke or heart attack with anesthesia, perforation of the GI tract, bleeding, infection. I explained that any of these could necessitate further emergency surgery. The patient understands and all questions were answered sufficiently. The patient wishes to proceed with procedure. Harvey Diez MD Pager: [facility] [address] [place] [address], [address] [place] [address] Office: Surgery Risks - Colonoscopy Risks Include but are not Limited To: Risks include but are not limited to: Bleeding, perforation requiring further surgery, inability to complete colonoscopy requiring barium enema.
--- NOTE | 2022-01-11 09:48 | OP.COLON_ITS ---
Patient Name: Sofía Carr Procedure Date: 01/11/2022 9:18 AM Date of : 1950 Age: 71 Procedure: Colonoscopy Indications: High risk colon cancer surveillance: Personal history of colonic polyps Providers: Harvey Diez MD Medicines: Monitored Anesthesia Care Patient Profile: This is a 71 year old female. Refer to note in patient chart for documentation of history and physical. Last Colonoscopy: 3 years ago. Complications: No immediate complications. Procedure: Pre-Anesthesia Assessment: - Prior to the procedure, a History and Physical was performed, and patient medications and allergies were reviewed. The patient's tolerance of previous anesthesia was also reviewed. The risks and benefits of the procedure and the sedation options and risks were discussed with the patient. All questions were answered, and informed consent was obtained. Prior Anticoagulants: The patient has taken no previous anticoagulant or antiplatelet agents. After reviewing the risks and benefits, the patient was deemed in satisfactory condition to undergo the procedure. After I obtained informed consent, the scope was passed under direct vision. Throughout the procedure, the patient's blood pressure, pulse, and oxygen saturations were monitored continuously. The colonoscope was introduced through the anus and advanced to the cecum, identified by appendiceal orifice and ileocecal valve. The colonoscopy was performed without difficulty. The patient tolerated the procedure well. The quality of the bowel preparation was good. Scope In: 9:30:01 AM Scope Withdrawal Time 0 hours 7 minutes 31 seconds Scope Out: 9:43:06 AM Total Procedure Duration Time 0 hours 13 minutes 5 seconds Findings: A small polyp was found in the rectum. The polyp was removed with a cold biopsy forceps. Resection and retrieval were complete. To prevent bleeding after the polypectomy, one hemostatic clip was successfully placed. There was no bleeding at the end of the procedure. The exam was otherwise without abnormality on direct and retroflexion views. Impression: - One small polyp in the rectum, removed with a cold biopsy forceps. Resected and retrieved. Clip was placed. - The examination was otherwise normal on direct and retroflexion views. Recommendation: - Discharge patient to home. - Resume previous diet. - Continue present medications. - Await pathology results. - Repeat colonoscopy in 5 years for surveillance. Procedure Code(s): --- Professional --- 96366, Colonoscopy, flexible; with biopsy, single or multiple Diagnosis Code(s): --- Professional --- Z86.010, Personal history of colonic polyps K62.1, Rectal polyp CPT copyright 2017 [employer]. All rights reserved. The codes documented in this report are preliminary and upon supervisor pigment making review may be revised to meet current compliance requirements. Harvey Diez MD 01/11/2022 9:48:07 AM This report has been signed electronically. Number of Addenda: 0 Note Initiated On: 01/11/2022 9:18 AM
--- NOTE | 2022-01-11 09:49 | OP.CCLET_ITS ---
01/11/2022 Keaton Berger [address] [place] [address] Re : Colonoscopy procedure for Sofía Carr Dear Dr. Berger This procedure was performed on Tuesday, January 11, 2022. My impressions and recommendations are as follows: Impressions : - One small polyp in the rectum, removed with a cold biopsy forceps. Resected and retrieved. Clip was placed. - The examination was otherwise normal on direct and retroflexion views. Recommendations : - Discharge patient to home. - Resume previous diet. - Continue present medications. - Await pathology results. - Repeat colonoscopy in 5 years for surveillance. My findings are described in the full procedure note, which is enclosed. If I can be of further assistance, please feel free to contact me at Doctor phone number(s): , Work: . Sincerely, Harvey Diez MD 01/11/2022 9:48:07 AM This report has been signed electronically.
== END 2022-01-11 10:39 | disposition home or self-care (01) ==
LOC: EN 07:34 → AC 07:36
PROVIDERS: PCP Family Medicine; Referring Provider Family Medicine; Visit Provider Surgery
PROC: 0DJD8ZZ Inspection of Lower Intestinal Tract, Via Natural or Artificial Opening Endoscopic (ICD-10-PCS; CPT 45378; principal; 2022-01-11 08:55)
DX: Z12.11 Encounter for screening for malignant neoplasm of colon (principal); E11.9 Type 2 diabetes mellitus without complications; F41.8 Other specified anxiety disorders; I10 Essential (primary) hypertension; Z86.010 Personal history of colon polyps; Z79.84 Long term (current) use of oral hypoglycemic drugs; E78.00 Pure hypercholesterolemia, unspecified; K62.1 Rectal polyp; Z90.49 Acquired absence of other specified parts of digestive tract; M79.7 Fibromyalgia; E07.9 Disorder of thyroid, unspecified
CPT/HCPCS: 45380; 82962; 88305; J7120; J2405

== ENCOUNTER → 2022-03-15 | Outpatient (CLI) | payer MEDICARE, MEDICAID, SELFPAY | END | disposition home or self-care (01) | PROVIDERS: PCP Family Medicine; Visit Provider Family Medicine | DX: U07.1 COVID-19 (principal) | CPT/HCPCS: 87635; U0003; U0005 ==

== ENCOUNTER → 2022-04-18 | Outpatient (CLI) | payer MEDICARE, MEDICAID, SELFPAY ==
[2022-04-18 12:16] LABS: ALB/GLOB Ratio 0.8 RATIO (0.9-2.4); AST(SGOT) 36 U/L (15-37); Alanine Aminotransfer ALT/SGPT 36 U/L (13-56); Albumin, Serum 3.3 g/dL (3.2-5.0); Alkaline Phosphatase 111 U/L (45-117); Anion Gap 9 (5-15); BUN 13 mg/dL (7-18); BUN/Creat Ratio 11.7 RATIO (10-20); Calcium,Total 9.2 mg/dL (8.5-10.1); Chloride 106 mmol/L (98-107); Cholesterol 111 mg/dL (200); Creatinine, Serum 1.11 mg/dL (0.55-1.02); EST Glomerular Filtration Rate 51 mL/min (>60); Est Glom Filt Rate - Afr Amer 62 mL/min (>60); Globulin 4.2 g/dL (2.2-4.2); Glucose 126 mg/dL (74-106); High Density Lipoprotein 39 mg/dL; Potassium 4.1 mmol/L (3.5-5.1); Protein, Total 7.5 g/dL (6.4-8.2); Sodium Level 141 mmol/L (136-145); Triglycerides 142 mg/dL; Very Low Density Lipoprotein 28 mg/dL (5-40)
== END | disposition home or self-care (01) ==
LOC: MFPLAB 10:26
PROVIDERS: PCP Family Medicine; Visit Provider Family Medicine
DX: R79.89 Other specified abnormal findings of blood chemistry (principal)
CPT/HCPCS: 36415; 80053; 80061

== ENCOUNTER → 2022-07-19 | Outpatient (CLI) | payer MEDICARE, MEDICAID, SELFPAY ==
[2022-07-19 10:25] LABS: Erythrocyte Sedimentation Rate 26 mm/hr (0-30)
[2022-07-19 10:28] LABS: Hematocrit 40.4 % (37-47); Hemoglobin 12.8 g/dL (12.0-15.0); Mean Corp Hgb Conc 31.7 g/dL (32-36); Mean Corpuscular Hgb 28.1 pg (27.0-32.0); Mean Corpuscular Volume 88.6 fL (81-99); Mean Platelet Vol. 11.1 fl (6.2-12.0); Platelet Count 118 K/mm3 (150-450); RBC Distribution Width CV 15.2 % (11.6-14.6); RBC Distribution Width SD 49.5 fl (35.1-43.9); Red Blood Count 4.56 M/mm3 (4.2-5.4); White Blood Count 6.8 K/mm3 (4.4-11.0)
[2022-07-19 10:53] LABS: Vitamin B12 1091 pg/mL (211-911); Vitamin D,25 Hydroxy 70.8 ng/mL
[2022-07-19 11:07] LABS: AST(SGOT) 33 U/L (15-37); Alanine Aminotransfer ALT/SGPT 38 U/L (13-56); Albumin, Serum 3.4 g/dL (3.2-5.0); Alkaline Phosphatase 110 U/L (45-117); Anion Gap 9 (5-15); BUN 11 mg/dL (7-18); BUN/Creat Ratio 10.6 RATIO (10-20); CRP < 2.90 mg/L (0.0-3.0); Calcium,Total 9.2 mg/dL (8.5-10.1); Chloride 105 mmol/L (98-107); Creatinine, Serum 1.04 mg/dL (0.55-1.02); EST Glomerular Filtration Rate 55 mL/min (>60); Est Glom Filt Rate - Afr Amer 67 mL/min (>60); Ferritin 33 ng/mL (8-252); Globulin 3.5 g/dL (2.2-4.2); Glucose 141 mg/dL (74-106); Iron 58 ug/dL (50-170); Magnesium 2.3 mg/dL (1.6-2.6); Potassium 4.2 mmol/L (3.5-5.1); Protein, Total 6.9 g/dL (6.4-8.2); Sodium Level 140 mmol/L (136-145); Thyroid Stim Hormone (TSH) 1.85 uIU/mL (0.358-3.74)
[2022-07-20 16:08] LABS: ANTINUCLEAR ANTIBODIES DIRECT Negative (Negative)
== END | disposition home or self-care (01) ==
LOC: MFPLAB 09:33
PROVIDERS: PCP Family Medicine; Visit Provider Family Medicine
DX: G62.9 Polyneuropathy, unspecified (principal)
CPT/HCPCS: 36415; 80053; 82306; 82607; 82728; 83540; 83735; 84443; 85027; 85652; 86038; 86140

== ENCOUNTER → 2022-10-20 | Outpatient (CLI) | payer MEDICARE, MEDICAID, SELFPAY ==
[2022-10-20 15:25] LABS: Vitamin D,25 Hydroxy 74.6 ng/mL
[2022-10-20 15:30] LABS: Anion Gap 5 (5-15); BUN 13 mg/dL (7-18); BUN/Creat Ratio 12.5 RATIO (10-20); Calcium,Total 9.6 mg/dL (8.5-10.1); Chloride 106 mmol/L (98-107); Creatinine, Serum 1.04 mg/dL (0.55-1.02); EST Glomerular Filtration Rate 55 mL/min (>60); Est Glom Filt Rate - Afr Amer 67 mL/min (>60); Glucose 118 mg/dL (74-106); Potassium 4.1 mmol/L (3.5-5.1); Sodium Level 137 mmol/L (136-145)
[2022-10-21 07:45] LABS: PTHIN 43.9 pg/mL (18.4-80.1)
== END | disposition home or self-care (01) ==
LOC: MFPLAB 11:36
PROVIDERS: PCP Family Medicine; Referring Provider Family Medicine; Visit Provider Family Medicine
DX: M81.0 Age-related osteoporosis without current pathological fracture (principal)
CPT/HCPCS: 36415; 80048; 82306; 83970; 84443

== ENCOUNTER → 2023-04-20 | Outpatient (CLI) | payer MEDICARE, MEDICAID, SELFPAY ==
[2023-04-20 11:07] LABS: Anion Gap 6 (5-15); BUN 10 mg/dL (7-18); BUN/Creat Ratio 9.2 RATIO (10-20); Calcium,Total 9.3 mg/dL (8.5-10.1); Chloride 107 mmol/L (98-107); Cholesterol 110 mg/dL (200); Creatinine, Serum 1.09 mg/dL (0.55-1.02); EST Glomerular Filtration Rate 52 mL/min (>60); Est Glom Filt Rate - Afr Amer 63 mL/min (>60); Glucose 145 mg/dL (74-106); High Density Lipoprotein 39 mg/dL; Potassium 4.2 mmol/L (3.5-5.1); Sodium Level 138 mmol/L (136-145); Thyroid Stim Hormone (TSH) 1.51 uIU/mL (0.358-3.74); Triglycerides 130 mg/dL; Very Low Density Lipoprotein 26 mg/dL (5-40)
== END | disposition home or self-care (01) ==
LOC: MFPLAB 08:49
PROVIDERS: PCP Family Medicine; Visit Provider Family Medicine
DX: E11.22 Type 2 diabetes mellitus with diabetic chronic kidney disease (principal); E03.9 Hypothyroidism, unspecified
CPT/HCPCS: 36415; 80048; 80061; 84443

== ENCOUNTER → 2023-08-09 | Outpatient (CLI) | payer MEDICARE, MEDICAID, SELFPAY ==
[2023-08-09 12:56] LABS: PTHIN 42.7 pg/mL (18.4-80.1)
[2023-08-09 12:57] LABS: Vitamin D,25 Hydroxy 104.2 ng/mL
[2023-08-09 13:04] LABS: ALB/GLOB Ratio 0.8 RATIO (0.9-2.4); AST(SGOT) 35 U/L (15-37); Alanine Aminotransfer ALT/SGPT 35 U/L (13-56); Albumin, Serum 3.2 g/dL (3.2-5.0); Alkaline Phosphatase 119 U/L (45-117); Anion Gap 5 (5-15); BUN 12 mg/dL (7-18); BUN/Creat Ratio 10.8 RATIO (10-20); Calcium,Total 9.7 mg/dL (8.5-10.1); Chloride 109 mmol/L (98-107); Creatinine, Serum 1.11 mg/dL (0.55-1.02); EST Glomerular Filtration Rate 51 mL/min (>60); Est Glom Filt Rate - Afr Amer 62 mL/min (>60); Globulin 3.9 g/dL (2.2-4.2); Glucose 191 mg/dL (74-106); Potassium 4.1 mmol/L (3.5-5.1); Protein, Total 7.1 g/dL (6.4-8.2); Sodium Level 140 mmol/L (136-145); Thyroid Stim Hormone (TSH) 2.03 uIU/mL (0.358-3.74)
== END | disposition home or self-care (01) ==
LOC: MFPLAB 10:03
PROVIDERS: PCP Family Medicine; Visit Provider Family Medicine
DX: M81.0 Age-related osteoporosis without current pathological fracture (principal); E11.22 Type 2 diabetes mellitus with diabetic chronic kidney disease; E03.9 Hypothyroidism, unspecified; E55.9 Vitamin D deficiency, unspecified
CPT/HCPCS: 36415; 80053; 82306; 83970; 84443

== ENCOUNTER → 2024-01-04 | Outpatient (CLI) | payer MEDICARE, MEDICAID, SELFPAY ==
--- NOTE | 2024-01-04 15:20 | BI_ITS ---
MAMMOGRAPHY - BILATERAL SCREENING 3-D TOMOSYNTHESIS REASON FOR EXAM: Female, 73 years old. SCREENING PERTINENT HISTORY: No significant family history. TECHNIQUE: 2-D mammograms and 3-D Tomosynthesis of the breast (s) were performed. CAD was performed. COMPARISON: 11/04/2021 FINDINGS: The breast composition is composed of scattered fibroglandular density. Scattered benign calcifications are seen. No dense spiculated masses or suspicious microcalcifications are identified. No architectural distortion is identified. There is no skin thickening or retraction. There has been no significant change since the prior study. BI/SCRN MAMM (CAD)W/DEWIN BILAT IMPRESSION: No mammographic signs of malignancy. Routine yearly mammograms recommended. ASSESSMENT CATEGORY: BIRADS Category 1: Negative. A letter regarding these results will be sent to the patient by the facility within 30 days. FOLLOW UP RECOMMENDATION: Yearly follow up mammogram recommended. (A) Approximately 10% of breast cancers are not detected by mammography. A normal mammogram should not delay biopsy of a clinically suspicious abnormality. Electronically Signed: Sumit Sauer MD at 13:15 EDT ,
--- NOTE | 2024-01-04 15:20 | BD_ITS ---
STUDY: DUAL ENERGY X-RAY ABSORPTIOMETRY / DXA REASON FOR EXAM: Female, 73 years old. [id number] TECHNIQUE: Bone Mineral Density (BMD) measurements of lumbar spine and left hip were obtained. COMPARISON: 11/04/2021 FINDINGS: Lumbar Spine (L1-L4): g/cm2 (0.969) / T-score (-0.4) / Z-score (1.9) Findings are suggestive of normal bone density with a low fracture risk. Left Femur Total: g/cm2 (0.677) / T-score (-2.2) / Z-score (-0.4) Left Femoral Neck: g/cm2 (0.561) / T-score (-2.6) / Z-score (-0.5) BD/Dexa Bone Density Study IMPRESSION: The patient is considered osteoporotic as outlined below according to World Kane Organization (WHO) criteria with a high fracture risk. There has been no change of bone density since the previous examination. Reference Information: The T-score is the number of standard deviations above or below the standard which is normal for young adults at their peak bone mineral density. The World Health Organization (WHO) interprets the T-scores as follows: Above -1 Normal bone density Between -1 and -2.5 Osteopenia Equal to / or below -2.5 Osteoporosis As a practical clinical guideline, osteopenia may be graded as follows: Mild -1 through -1.5 Moderate -1.6 through -2.0 Severe -2.1 through -2.4 The Z-score is the number of standard deviations above or below age-matched controls. A Z-score of less than -1.5 would be considered abnormal. References: 1. NIH Osteoporosis and Related Bone Diseases www osteo.org 2. International Society for Clinical Densitometry www iscd.org 3. National Osteoporosis Foundation www nof.org Electronically Signed: Sumit Sauer MD at 10:26 EDT ,
== END | disposition home or self-care (01) ==
PROVIDERS: PCP Family Medicine; Referring Provider Family Medicine; Visit Provider Family Medicine
DX: Z00.00 Encounter for general adult medical examination without abnormal findings (principal); Z12.31 Encounter for screening mammogram for malignant neoplasm of breast; Z78.0 Asymptomatic menopausal state
CPT/HCPCS: 77063; 77067; 77080

== ENCOUNTER → 2024-01-31 | Outpatient (CLI) | payer MEDICARE, MEDICAID, SELFPAY ==
--- NOTE | 2024-01-31 09:35 | RAD_ITS ---
STUDY: X-RAY - ABDOMEN/PELVIS REASON FOR EXAM: Female, 73 years old. Bloating. TECHNIQUE: AP supine and upright views of the abdomen and pelvis on 5 images. COMPARISON: CT of the abdomen and pelvis dated September 22, 2014. FINDINGS: Normal visualized lung bases. Normal bowel gas pattern with air seen to the rectum. Moderate to marked amount of feces in the colon. No free abdominal air is identified. Intra-abdominal outlines difficult to see due to overlying gas and feces. 2. Small calcifications projected over the right upper quadrant, likely within bowel. Residual contrast in diverticula in the of the descending colon. Osteopenia, right total hip arthroplasty and lower lumbosacral spondylosis. RAD/Abd Inc Decub and/or Erect IMPRESSION: No acute abnormality identified. Electronically Signed: Magdy Saldana MD at 10:36 EDT ,
[2024-01-31 12:59] LABS: ALB/GLOB Ratio 0.9 RATIO (0.9-2.4); AST(SGOT) 31 U/L (15-37); Alanine Aminotransfer ALT/SGPT 37 U/L (13-56); Albumin, Serum 3.6 g/dL (3.2-5.0); Alkaline Phosphatase 126 U/L (45-117); Anion Gap 9 (5-15); BUN 13 mg/dL (7-18); BUN/Creat Ratio 12.7 RATIO (10-20); Calcium,Total 9.2 mg/dL (8.5-10.1); Chloride 105 mmol/L (98-107); Cholesterol 129 mg/dL (200); Creatinine, Serum 1.02 mg/dL (0.55-1.02); EST Glomerular Filtration Rate 56 mL/min (>60); Est Glom Filt Rate - Afr Amer 68 mL/min (>60); Glucose 234 mg/dL (74-106); High Density Lipoprotein 44 mg/dL; Potassium 3.9 mmol/L (3.5-5.1); Protein, Total 7.6 g/dL (6.4-8.2); Sodium Level 137 mmol/L (136-145); Thyroid Stim Hormone (TSH) 3.63 uIU/mL (0.358-3.74); Triglycerides 156 mg/dL; Very Low Density Lipoprotein 31 mg/dL (5-40)
== END | disposition home or self-care (01) ==
LOC: MTLAB 09:34
PROVIDERS: PCP Family Medicine; Referring Provider Family Medicine; Visit Provider Family Medicine
DX: K46.9 Unspecified abdominal hernia without obstruction or gangrene (principal); E11.22 Type 2 diabetes mellitus with diabetic chronic kidney disease
CPT/HCPCS: 36415; 74019; 80053; 80061; 84443

== ENCOUNTER 2024-04-04 09:53 | Emergency (ER) | payer MEDICARE, MEDICAID, SELFPAY ==
[2024-04-04 09:53] VITALS: BP 177/80; BP 208/85; PULSE 116; PULSE 122; RESP 16; RESP 18; TEMP 36.1; O2SAT 95; O2SAT 97
[2024-04-04 10:05] VITALS: BMI 29.6
--- NOTE | 2024-04-04 10:17 | VDLE_ITS ---
Reason For Study: RLE Pain RIGHT GSV is normal. CFV is compressible, spontaneous, phasic, competent and demonstrates normal augmentation. FV is compressible, spontaneous, phasic, competent and demonstrates normal augmentation. POP V is compressible, spontaneous, phasic, competent and demonstrates normal augmentation. T/P Trunk is compressible. PTV is compressible. RT PerV is compressible. Procedure This is a venous duplex using B-mode, color flow and spectral Doppler. Exam performed portable in ED. The exam was diagnostic. A preliminary report was called and/or faxed to ED RN Rhea / Dr. GARCIA. VL/Venous Duplex US, Unilateral Interpretation Summary Deep veins of the right lower extremity are patent and compressible segmentally . There is no evidence of right lower extremity deep vein thrombosis. Valvular competence car ears intact within the proximal deep venous system on the right . The right great saphenous vein a ppears patent and compressible segmentally. Ordering Physician: Angelito Garcia Referring Physician: Sivakumar Berger Performed By: Tomas Rosario RVT
[2024-04-04] MEDS: oxyCODONE 5 MG Tablet PO (10:26)
[2024-04-04] MEDS: Ketorolac 30 MG/ML Syringe IM (10:27)
--- NOTE | 2024-04-04 11:20 | ED.VIS.LOWEX ---
HPI History of Present Illness Chief Complaint: Lower Extremity Injury Informant: patient Narrative Narrative: Presenting nontraumatic cramping behind right calf along with pain behind her thigh radiating to her foot. History of sciatica states feels different. She is followed by pain management Dr. Castro. She receives back injections last time was this past October with only minimal improvement. Typically can go 3 to 6 months with symptoms. She denies any worsening back pain. Denies loss of bowel or bladder control. Denies recent travel or surgeries. Denies history of PE or DVT. She was written for gabapentin however states did not work therefore she does not take it. She has been using Advil. Last use was yesterday. Reported to nursing that her pain was 20 out of 10. Prior similar symptoms: Yes PFSH PFS Medical History Wears dentures Wears glasses Depression Anxiety History of steroid therapy Diabetes High cholesterol Back pain Migraine headache Arachnoiditis Gastric reflux Non-smoker Leg cramps History of pain when walking History of irregular heartbeat History of echocardiogram Hypertension Hemorrhoids GERD (gastroesophageal reflux disease) Depression with anxiety Arthritis History of back problems Diabetes Thyroid disease C. difficile colitis Colon cancer Fibromyalgia Chest pain on exertion Dyspnea Weakness generalized Anemia Home Medications ?Medication ?Instructions ?Recorded ?Last Taken ?Type amitriptyline 25 mg tablet 50 mg PO QHS MOOD 10/10/13 11/25/13 22:00 History zolpidem 12.5 mg tablet,extended 10 mg PO QHS PRN PRN Insomnia 10/10/13 11/25/13 22:00 History release,multiphase calcium carbonate 600 mg-vitamin 1 ea PO DAILY SUPPLEMENT 10/29/13 11/25/13 07:00 History D3 10 mcg (400 unit) tablet omeprazole 40 mg capsule,delayed 1 tab PO DAILY GERD 10/29/13 01/21/19 History release ferrous sulfate 325 mg (65 mg 325 mg PO DAILY SUPPLEMENT 11/14/17 Unknown History iron) tablet levothyroxine 75 mcg tablet 75 mcg PO DAILY THYROID 11/14/17 01/11/22 History tramadol 50 mg tablet 50 - 100 mg (1 - 2 x 50 mg) PO Q6H 12/08/17 Unknown Rx PRN PRN Moderate Pain (4-5/10) #28 tabs cholecalciferol (vitamin D3) 125 125 mcg PO DAILY 02/18/20 Unknown History mcg (5,000 unit) capsule empagliflozin 10 mg tablet 25 mg PO DAILY 02/18/20 Unknown History (Jardiance) metformin 500 mg tablet 75 mg PO DAILY DM 02/18/20 Unknown History atorvastatin 80 mg tablet 80 mg PO DAILY 12/07/21 Unknown History denosumab 60 mg/mL subcutaneous 60 mg subcut [id number] 12/07/21 Unknown History syringe (Prolia) dulaglutide 1.5 mg/0.5 mL 1.5 mg subcut QWEEK 12/07/21 Unknown History subcutaneous pen injector (Trulicity) glimepiride 2 mg tablet 4 mg PO DAILY 12/07/21 Unknown History ascorbic acid (vitamin C) 500 mg 500 mg PO DAILY 01/05/22 Unknown History tablet (Vitamin C) cyanocobalamin (vitamin B-12) 1,000 mcg PO DAILY 01/05/22 Unknown History 1,000 mcg tablet (Vitamin B-12) multivitamin 1 tab PO DAILY 01/05/22 Unknown History omega-3 fatty acids 1,000 mg PO DAILY 01/05/22 Unknown History Allergy/AdvReac Type Severity Reaction Status Date / Time bee venom protein (honey bee) Allergy Anaphylaxis Verified 04/04/24 09:53 citalopram (From Celexa) AdvReac Severe HEADACHES Verified 04/04/24 09:53 duloxetine (From Cymbalta) AdvReac Severe Insomnia, Verified 04/04/24 09:53 Constipation gabapentin (From Neurontin) AdvReac Severe Visual Verified 04/04/24 09:53 Disturbances mirtazapine (From Remeron) AdvReac Severe AGGITATION Verified 04/04/24 09:53 pregabalin (From Lyrica) AdvReac Severe LEG Verified 04/04/24 09:53 CRAMPS,NIGHTMARES,WT GAIN codeine AdvReac Upset Verified 04/04/24 09:53 Stomach Family History Mother Arthritis Heart disease Sister Parkinsons Myocardial infarction Obesity Surgical History Hx of colonoscopy History of total right hip replacement History of colectomy Social History Smoking Status: Never smoker alcohol intake: never substance use type: does not use ROS ROS ED Constitutional Constitutional ED: Denies chills, fever(s) or sweats Eyes Eyes: Denies change in vision ENT ENT ED: Denies dysphagia or sore throat Cardiovascular Cardiovascular: Denies chest pain, leg edema, palpitations or racing heartbeat Respiratory/Chest Respiratory/Chest: Denies cough, dyspnea or dyspnea on exertion Gastrointestinal Gastrointestinal: Denies abdominal pain, diarrhea, nausea or vomiting Genitourinary Genitourinary ED: Denies dysuria, hematuria or urinary frequency Musculoskeletal Musculoskeletal: Reports extremity pain; Denies back pain or neck pain Integumentary Denies rash or wounds Neurologic Neurologic: Denies headache(s), paresthesias or weakness EXAM Physical Exam Const Vital Signs: 04/04/24 09:53 04/04/24 09:53 04/04/24 11:29 Temperature 96.9 F L 97.8 F Temperature Source Temporal Pulse Rate 116 H 122 H 93 Respiratory Rate 16 18 18 Blood Pressure 177/80 H 208/85 H 130/76 H Blood Pressure Mean 112 126 94 Pulse Ox 95 97 100 Oxygen Delivery Method Room Air Room Air Positive well nourished and well developed Constitutional Narrative: Nontoxic, no acute distress General Appearance ED: well developed and NAD HEENT Reports moist mucous membranes normocephalic and atraumatic Eyes EOMs intact bilaterally and conjunctivae normal General Eye ED: Yes normal appearance of both eyes Neck no lymphadenopathy and supple General: Negative for tenderness Chest Wall Chest: Negative for tenderness Resp normal respiratory effort and normal air movement Effort and Inspection: symmetric chest movement; Negative for respiratory distress Cardio regular rate, regular rhythm and no murmurs Peripheral Pulses: pulses 2+ throughout GI normal to inspection, nondistended, normoactive bowel sounds and non-tender Palpation: Negative for guarding or rebound tenderness present Back/Spine no CVA tenderness and no thoracic nor lumbar tenderness Back/Spine Narrative: Straight leg test was negative bilaterally. Extremity normal to inspection Extremity Narrative: Right calf tenderness soft compartments no asymmetric swelling. Pulses are intact distally. General Extremety ED: Yes tenderness; Negative for edema General Extremity: Negative for edema Neuro oriented x3 and no sensory deficits noted Sensorium / Orientation: awake and alert Skin no rashes or lesions noted and no wounds MDM MDM MDM Narrative Medical decision making narrative: Interventions / MDM: Differential diagnosis: Right sided sciatica Diagnosis considered but do not suspect: DVT however ultrasound negative. Soft compartments therefore no concerns for compartment syndrome. No cauda equina symptoms. My EKG interpretation: N/A Imaging independently reviewed and interpreted by myself: N/A External documents reviewed: N/A Test considered but not ordered:N/A ED course: Patient reporting 20 out of 10 pain however appears comfortable during my exam she is nontoxic. She has calf tenderness straight leg test was negative no cauda equina symptoms. Ultrasound ordered with a calf tenderness. She has no worsening back pain. She is ordered for Toradol IM along with oxycodone. Ultrasound negative for DVT. Her straight leg test was negative. She reported nursing concerns for dislocation however she has range of motion therefore clinically no dislocation. Discussed this with the patient and she understands is more reassured. She had elevated blood pressure and tachycardia on arrival on reevaluation with pain treatment blood pressure improved along with her heart rate improved. She is ambulating with her walker. I discussed with patient she will need to follow-up with her pain doctor for likely recommended further. Intervention treatment as it has been 5 months since her last 1. She take Advil at home discussed can restart her gabapentin. All questions were answered. Re-evaluation: stable Disposition discussed with patient/family/significant other: Patient Case discussed with consulting clinician: N/A This note was generated with [employer] dictation software. It may contain incorrect words, spelling, and punctuation that were not noted in checking the note before signing. Discharge Plan Triage Chief Complaint: Lower Extremity Injury ED Provider: Angelito Sethi Dx/Rx/DC Orders Clinical Impression: Right sided sciatica, Pain of right calf Instructions: ED Sciatica Prescriptions: No Action Jardiance 10 mg tablet 25 mg PO DAILY cholecalciferol (vitamin D3) 125 mcg (5,000 unit) capsule 125 mcg PO DAILY glimepiride 2 mg tablet 4 mg PO DAILY atorvastatin 80 mg tablet 80 mg PO DAILY Prolia 60 mg/mL syringe 60 mg subcut [id number] Trulicity 1.5 mg/0.5 mL pen injector 1.5 mg subcut QWEEK amitriptyline 25 MG tablet 50 mg PO QHS Patient Comments: NERVES zolpidem 12.5 MG tablet,ext release multiphase 10 mg PO QHS PRN PRN (Reason: Insomnia) Patient Comments: SLEEP omeprazole 40 MG capsule,delayed release(DR/EC) 1 tab PO DAILY Patient Comments: STOMACH calcium carbonate-vitamin D3 1 EACH tablet 1 ea PO DAILY Patient Comments: BONE CARE metformin 500 mg tablet 75 mg PO DAILY levothyroxine 75 MCG tablet 75 mcg PO DAILY ferrous sulfate 325 MG tablet 325 mg PO DAILY tramadol 50 MG tablet 50 - 100 mg PO Q6H PRN PRN (Reason: Moderate Pain (4-5/10)) Qty: 28 0RF multivitamin Tablet 1 tab PO DAILY cyanocobalamin (vitamin B-12) [Vitamin B-12] 1,000 mcg Tablet 1,000 mcg PO DAILY ascorbic acid (vitamin C) [Vitamin C] 500 mg Tablet 500 mg PO DAILY Fish Oil Capsule 1,000 mg PO DAILY Primary Care Provider: Sivakumar Berger Referrals: Tony Castro MD [Med Staff - Active Staff] - 1 Day Sivakumar Berger MD [Primary Care Provider] - Activity Restrictions/Additional Instructions: Ultrasound study right lower extremity negative for DVT. History consistent with sciatica symptoms. Call Dr. Castro, for outpatient evaluation and further treatment options. Print Language: Turkmen Disposition Disposition: Home, Self Care Discharge Date/Time: 04/04/24 11:31
[2024-04-04 11:29] VITALS: BP 130/76; PULSE 93; RESP 18; TEMP 36.6; O2SAT 100
== END 2024-04-04 11:31 | disposition home or self-care (01) ==
PROVIDERS: Emergency Provider Emergency Medicine; PCP Family Medicine; Visit Provider Emergency Medicine
DX: M54.31 Sciatica, right side (principal); E11.9 Type 2 diabetes mellitus without complications; I10 Essential (primary) hypertension; E78.00 Pure hypercholesterolemia, unspecified; M79.661 Pain in right lower leg; M79.7 Fibromyalgia; Z96.641 Presence of right artificial hip joint
CPT/HCPCS: 93971; 96372; 99282

== ENCOUNTER → 2024-05-01 | Outpatient (CLI) | payer MEDICARE, MEDICAID, SELFPAY ==
--- NOTE | 2024-05-01 09:57 | RAD_ITS ---
STUDY: X-RAY - PELVIS AND RIGHT HIP REASON FOR EXAM: Female, 73 years old. pain TECHNIQUE: 3 views of the pelvis and hip. COMPARISON: 11/27/2017. FINDINGS: Stable satisfactory appearance of a right hip arthroplasty. No dislocation. No loosening. No periprosthetic failure. Normal bilateral iliac wings, sacroiliac joints and visualized sacrum. Normal bilateral superior and inferior pubic rami. Normal pubic symphysis. Normal bilateral ischial tuberosities. RAD/HIP, UNI W/ Pelvis 2-3 Views IMPRESSION: No definite acute or significant abnormality seen. Electronically Signed: Tanner Holcomb MD at 23:57 EDT ,
--- OUTSIDE RECORDS SUMMARY | 2024-05-01 10:37 | XMS RPT_ITS | CCD ---
Author Organization [facility] Results Test Name Value Interpretation Reference Range Facil ity CNPNon 11-14-2019 CNPN Telephone (GENSME) KERWIN VICK ([id number]) 1950 F Date Time Provider Department 11/14/19 ALLYSON ROSALES During your visit today, we recorded the following information about you: Slime Ocasio [facility] 11/14/2019 10:33 AM Signed Patient is being referred to [facility]nia surgery specialists for Abdominal wall hernia surgery. Patient also has asymptomatic cholelithiasis. Appointment was made for November 20 arrival time 2:[address] Moise, he is on the 10th floor of the [facility] on [address] If this appointment time needs to be changed the patient may call [phone] and they will be able to help her. I called patient and left a message regarding this appointment and said to call the [place] office or my office for details of this appointment. [facility] you [facility] Slime Ocasio [facility] 11/15/2019 2:36 PM Signed Patient called, she has a transportation problem and had to cancel the appointment that was scheduled. She is going to see who can take her and will call back to reschedule. She has my number, I told her I would be happy to help her when she is ready. [facility] you [facility] Allergies As of Date: 11/14/2019 Noted Allergy Reaction BEES 05/18/2010 12 - Shortness of Breath CODEINE 01/27/2009 Date Reviewed: 11/14/2019 Reviewed by: Allyson Rosales - Fully Assessed Reason for Visit: Referral to General Surgery [Other] Prescriptions as of 11/14/2019 Sig: TRAMADOL ORAL Take by mouth. GLIMEPIRIDE 2 MG TABLET Take 2 mg by mouth daily with* CHANCE-C ORAL Take by mouth. MULTI-VITAMIN ORAL Take by mouth. IRON ORAL Take by mouth. VITAMIN D2 ORAL Take by mouth. LEVOTHYROXINE 75 MCG TABLET METFORMIN 500 MG TABLET Take 500 mg by mouth twice da* PROBIOTIC (S.BOULARDII) ORAL Take by mouth. TIZANIDINE 4 MG CAPSULE Take 4 mg by mouth three time* AMITRIPTYLINE 25 MG TABLET Take 25 mg by mouth daily at * OXYCODONE 5 MG CAPSULE Take 5 mg by mouth every 4 ho* OMEPRAZOLE 10 MG CAPSULE,TRAY* Take 40 mg by mouth once finesse* * LIDOCAINE 5 % TOPICAL PATCH Apply as directed. 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 History of colon cancer, stage II [Z85.038] 06/24/2016 Encounter Status:Closed by SLIME MORLEY on 11/18/19 [facility] 11-14-2019 PROGRESS HNO ID: [id number] Author: Allyson Rosales Service: ? Author Type: Physician Type: Progress Notes Filed: 11/15/2019 9:40 AM Note Text: This is a visit via [employer] due to the present COVID situation and to decrease the risk of the patient's exposure. NEW VIRTUAL CONSULT I had a virtual consult with Ms. Vick today. Her local doctors have given her a diagnosis of ventral hernia. Referred by her primary physician, Dr. Piña This consult was requested by Dr Piña for an opinion regarding patient's presentation , and my final recommendations will be communicated to the requesting health care provider by way of the shared medical record for internal providers or letter via the [employer] for external providers. HISTORY: Kerwin is a 69 y/o WF who presents with known ventral incisional hernia and elevated LFTs with cholelithiasis. She states that her abdominal pain is mainly related to the hernia - she feels discomfort in the lower aspect of there protrusion of the hernia - like a pressure/pulling pain. This has been ongoing for the past two months and slowly worsening over time. She had undergone laparoscopic right hemicolectomy for right colon cancer - stage 2, T3 N0 ( negative) in October 2013. She denies right upper quadrant abdominal pain. She denies nausea/emesis. PAST MEDICAL HISTORY Diagnosis Date - Arachnoiditis 2006 - Blood dyscrasia - Borderline diabetes Using Metformin - Colon cancer (HCC) 2013 - Diabetes (HCC) - Glaucoma - Mental disorder - Pupils of different size following accident - rock hit left eye in 2006 - Snoring PAST SURGICAL HISTORY Procedure Laterality Date - COLONOSCOP W/ OR W/O [facility] SPE[facility] 11/07/2016 Colonoscopy - COLONOSCOP W/ OR W/O [facility] 01/21/2019 - LX PARTIAL COLECTOMY 2013 - NONE - PARTIAL HIP REPLACEMENT Right 11/28/2017 FAMILY HISTORY Problem Relation Age of Onset - Heart Mother CO @ 40 - Psychiatry Father - other (parkinsons) Sister - Psychiatry Sister schizophrenia - Psychiatry Brother schizophrenia - Psychiatry Brother depression, comitted suicide Social History Tobacco Use - Smoking status: Never Smoker - Smokeless tobacco: Never Used Substance Use Topics - Alcohol use: No - Drug use: No Current Outpatient Medications Medication Sig Dispense Refill - tramadol HCl (TRAMADOL ORAL) Take by mouth. - glimepiride (AMARYL) 2 mg tablet Take 2 mg by mouth daily with breakfast. - ascorbic acid (CHANCE-C ORAL) Take by mouth. - MULTI-VITAMIN ORAL Take by mouth. - ferrous sulfate (IRON ORAL) Take by mouth. - ergocalciferol, vitamin D2, (VITAMIN D2 ORAL) Take by mouth. - levothyroxine (SYNTHROID) 75 mcg tablet - metFORMIN (GLUCOPHAGE) 500 mg tablet Take 500 mg by mouth twice daily with meals. - SACCHAROMYCES BOULARDII (PROBIOTIC, S.BOULARDII, ORAL) Take by mouth. - tiZANidine HCl (ZANAFLEX) 4 mg capsule Take 4 mg by mouth three times daily. - amitriptyline (ELAVIL) 25 mg tablet Take 25 mg by mouth daily at bedtime. - omeprazole (PRILOSEC) 10 mg ORAL capsule Take 40 mg by mouth once daily. 0 - lidocaine 5 %(700 mg/patch) TOPICAL Apply as directed. apply as directed, 12 hours on, then 12 hours off 60 Patch 3 - zolpidem (AMBIEN) 10 mg ORAL Tab Take by mouth at bedtime as needed. - oxyCODONE ir (OXYIR) 5 mg capsule Take 5 mg by mouth every 4 hours as needed. ALLERGIES Allergen Reactions - Bees Shortness of Breath - Codeine REVIEW OF SYSTEMS: PAIN ASSESSMENT: see HPI GENERAL: denies fevers, slow weight gain since surgery RESPIRATORY: denies chronic cough, denies coughing up blood, denies shortness of breath CARDIOVASCULAR: denies chest pain GI: see HPI, denies blood in stools, last colonoscopy 2017 findings of tubular adenoma : denies incontinence, denies blood in urine MUSCULOSKELETAL: has some back pain SKIN: denies non healing wounds ENDOCRINE: has borderline diabetes NEURO: denies seizures, denies chronic numbness or weakness of extremities, denies history of stroke PSYCH: denies hallucinations PHYSICAL FINDINGS OF NOTE: Patient reported height 5'2 and weight 175# General ? Normal, healthy, cooperative, in no acute distress Able to interact verbally by video conference Psych ? ORIENTATION: normal to time place, person and situation Mood/Affect: AFFECT AND MOOD: Normal Head/Neuro ? Normal size and shape Facial appearance normal Pulmonary ? respiratory effort normal Cardiovascular ? patient describes extremities normal, warm, no cyanosis,no clubbing and no edema Abdominal ? Performed Obese, Visible protrusions or hernias: Yes Incisions/scars: Healed, Areas of pain/tenderness: points to lower aspect of hernia Skin ? no abnormal lesions Motor ? patient seen sitting with Normal appearing strength and coordination Anorectal exam - Not Performed REVIEWED ITEMS I reviewed the following available records: 11/11/2019 CT scan FINDINGS: The visualized lung bases are unremarkable. The visualized portions of the heart are within normal limits. There is decreased attenuation of the liver consistent with steatosis. There is hepatomegaly. There are multiple gallstones. There is moderate splenomegaly. Normal pancreas. Normal bilateral adrenal glands. Normal right kidney. Normal left kidney. Normal visualized stomach. Normal small intestine. Previous partial right colectomy, otherwise normal colon. Stable large complex ventral wall hernia containing significant components of fat and portions of the transverse colon but without evidence for obstruction. Previously this certainly did not contain bowel loops. Normal abdominal aorta. Normal inferior vena cava. Normal retroperitoneum. Normal urinary bladder. There is atrophy of the uterus. There are diffuse degenerative changes of the visualized lumbar spine. IMPRESSION: Large complex ventral wall hernia containing significant components of fat and portions of the transverse colon but without evidence for obstruction. Previously this certainly did not contain bowel loops. No other changes or acute abnormalities. Fatty liver with hepatomegaly. IMPRESSION 1. Large ventral incisional hernia 2. Cholelithiasis RECOMMENDATION: Because of the large ventral hernia, will refer patient to hernia surgeons at main [facility]. I spent more than 15 minutes [id number] with the patient and over half the time was devoted to counseling and/or coordination of care. Allyson Rosales MD [facility] 11-13-2019 [facility] KERWIN VICK ([id number]) 1950 F Date Time Provider Department 11/13/19 ALLYSON ROSALES During your visit today, we recorded the following information about you: CESAR Eddy 11/13/2019 11:58 AM Signed First attempt to reach patient to schedule with Dr. Rosales for abdominal pain. Allergies As of Date: 11/13/2019 Noted Allergy Reaction BEES 05/18/2010 12 - Shortness of Breath CODEINE 01/27/2009 Date Reviewed: 12/09/2018 Reviewed by: Allyson Rosales - Fully Assessed Reason for Visit: Future Appointment [256] Prescriptions as of 11/13/2019 Sig: LEVOTHYROXINE 75 MCG TABLET METFORMIN 500 MG TABLET Take 500 mg by mouth twice da* PROBIOTIC (S.BOULARDII) ORAL Take by mouth. TIZANIDINE 4 MG CAPSULE Take 4 mg by mouth three time* AMITRIPTYLINE 25 MG TABLET Take 25 mg by mouth daily at * OXYCODONE 5 MG CAPSULE Take 5 mg by mouth every 4 ho* OMEPRAZOLE 10 MG CAPSULE,TRAY* Take 40 mg by mouth once finesse* * LIDOCAINE 5 % TOPICAL PATCH Apply as directed. 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 History of colon cancer, stage II [Z85.038] 06/24/2016 Encounter Status:Closed by FIONA YORK on 11/13/19 [facility] 01-28-2019 [facility] KERWIN VICK ([id number]) 1950 F Date Time Provider Department 01/28/19 ALLYSON ROSALES GENSWInge During your visit today, we recorded the following information about you: Wilson Pichardo 01/28/2019 2:59 PM Signed Patient calling for her colonoscopy biopsy results complete on 01-21-2019 Wilson Rosales MD 01/29/2019 7:47 PM Signed Please let patient know that pathology revealed no abnormalities. I recommend surveillance colonoscopy in 3 years. Please update Best Practice and place patient on recall list for this, Thank you Yao Pinzon LPN 01/30/2019 9:28 AM Signed Attempted to contact pt. Left message for pt to call office. Yao Juarez LPN 01/30/2019 4:30 PM Signed Patient notified and voices understanding. Allergies As of Date: 01/28/2019 Noted Allergy Reaction BEES 05/18/2010 12 - Shortness of Breath CODEINE 01/27/2009 Date Reviewed: 12/09/2018 Reviewed by: Allyson Rosales - Fully Assessed Reason for Visit: Results [95] Primary Visit Diagnosis:History of colon cancer, stage II [Z85.038] Prescriptions as of 01/28/2019 Sig: LEVOTHYROXINE 75 MCG TABLET METFORMIN 500 MG TABLET Take 500 mg by mouth twice da* PROBIOTIC (S.BOULARDII) ORAL Take by mouth. TIZANIDINE 4 MG CAPSULE Take 4 mg by mouth three time* AMITRIPTYLINE 25 MG TABLET Take 25 mg by mouth daily at * OXYCODONE 5 MG CAPSULE Take 5 mg by mouth every 4 ho* OMEPRAZOLE 10 MG CAPSULE,TRAY* Take 40 mg by mouth once finesse* * LIDOCAINE 5 % TOPICAL PATCH Apply as directed. apply as * * ZOLPIDEM 10 MG TABLET Take by mouth at bedtime as * Problem List As Of Date 01/28/2019 Noted Resolved ENTHESOPATHY OF HIP [M76.899] INVALID FOR* Other Pain Disorders Related to Psychological F*INVALID FOR* Adj React-Emotion NEC [F43.29] INVALID FOR* Insomnia [G47.00] INVALID FOR* More... History of colon cancer, stage II [Z85.038] INVALID FOR* Encounter Status:Closed by MD ALLYSON ROSALES on 01/29/19 Normal [facility] Enteric Bact Pnl PCRon 12-10 Campy jejun/coli DNA Not Detected Normal [facility] Comment on above: Performed By: #### S TLPCR #### [facility] [address], [place] [address] Salmonella spp. DNA Not Detected Normal [facility] Comment on above: Performed By: #### S TLPCR #### [facility] [address], [place] [address] Shiga toxin gene(s) Not Detected Normal [facility] Comment on above: Performed By: #### S TLPCR #### [facility] [address], [place] [address] Shigella/EIEC DNA Not Detected Normal [facility] Comment on above: Performed By: #### S TLPCR #### [facility] [address] [place], [place] [address] Ova and Parasite Exon 2018 Ova and Parasite Ex Sp. Request/Comment: - Specimen received in Ova and Parasite Kit. Culture Result - No parasites seen. Normal [facility] Comment on above: Performed By: #### O VAP #### [facility] [address] [place], [place] [address] CNOVon 12-06-2018 CNOV Office Visit (GENSWS ) KERWIN VICK ([id number]) 1950 F Date Time Provider Department 12/06/18 3:30 PM ALLYSON ROSALES During your visit today, we recorded the following information about you: Allyson Rosales MD 12/09/2018 10:18 AM Signed Kerwin Vick 1950 REFERRING PHYSICIAN: Irwin Piña, * CHIEF COMPLAINT: Consult (Abd pain) HPI: The patient is a 68 year old female presents with lower abdominal crampy pain She is status post laparoscopic extended right hemicolectomy in October 2013. Stage II right colon cancer. Surgery complicated by postoperative abscess at the anastomotic site, no leak noted. She also had c. diff colitis. This resulted in prolonged recovery from surgery. Is noted to have a ventral incisional hernia. CEA 11/29/18 - normal She presents with complaint of lower abdominal crampy discomfort mostly after eating fast food and also with fecal urgency and an episode of loose stools. Denies multiple episode of bowel movements per day, usually 1-2 bowel movements per day. Denies blood in stools. This has been going on for a few weeks. Does think that at one point, she had a chicken salad that was suspect for food poisoning. Denies recently taking any antibiotics. Denies weight loss, has had slow weight gain over the years. PAST MEDICAL HISTORY Diagnosis Date - Arachnoiditis 2006 - Blood dyscrasia - Borderline diabetes Using Metformin - Colon cancer (HCC) 2013 - Diabetes (HCC) - Glaucoma - Mental disorder - Pupils of different size following accident - rock hit left eye in 2006 - Snoring hypothyroidism PAST SURGICAL HISTORY Procedure Laterality Date - COLONOSCOP W/ OR W/O [facility] SPEC 11/07/2016 Colonoscopy - LX PARTIAL COLECTOMY 2013 - NONE - PARTIAL HIP REPLACEMENT Right 11/28/2017 Current Outpatient Medications: metFORMIN (GLUCOPHAGE) 500 mg tablet Take 500 mg by mouth twice daily with meals. SACCHAROMYCES BOULARDII (PROBIOTIC, S.BOULARDII, ORAL) Take by mouth. tiZANidine HCl (ZANAFLEX) 4 mg capsule Take 4 mg by mouth three times daily. amitriptyline (ELAVIL) 25 mg tablet Take 25 mg by mouth daily at bedtime. oxyCODONE ir (OXYIR) 5 mg capsule Take 5 mg by mouth every 4 hours as needed. omeprazole (PRILOSEC) 10 mg ORAL capsule Take 40 mg by mouth once daily. lidocaine 5 %(700 mg/patch) TOPICAL Apply as directed. apply as directed, 12 hours on, then 12 hours off zolpidem (AMBIEN) 10 mg ORAL Tab Take by mouth at bedtime as needed. levothyroxine (SYNTHROID) 75 mcg tablet ALLERGIES: Bees; Codeine PERSONAL HISTORY: Social History Socioeconomic History Marital status: Single Spouse name: Not on file Number of children: 2 Tobacco Use Smoking status: Never Smoker Alcohol use: No Drug use: No FAMILY HISTORY Problem Relation Age of Onset - Heart Mother CO @ 40 - Psychiatry Father - other (parkinsons) Sister - Psychiatry Sister schizophrenia - Psychiatry Brother schizophrenia - Psychiatry Brother depression, comitted suicide REVIEW OF SYSTEMS: General - denies fevers, slow weight gain over years Cardiovascular - denies chest pain, denies history of heart attack Pulmonary - denies shortness of breath, denies coughing up blood, denies breathing difficulties Gastrointestinal - denies blood in stools, denies abdominal pain, denies swallowing problems, had history of c.diff colitis Neurological - denies numbness/weakness of extremities, denies seizures, denies history of stroke Genitourinary - denies blood in urine, denies burning with urination Hematological - denies spontaneous/prolonged bleeding, denies history of blood transfusions, denies history of deep venous thromboses and/or pulmonary emboli Skin - denies nonhealing skin wounds, denies history of skin cancer Musculoskeletal - has chronic back pain with some sciatica, recent right hip surgery for avascular necrosis Endocrine - has diabetes, has hypothyroidism Psychological ? denies hallucinations, admits to depression ? PHYSICAL EXAMINATION: General: The patient is 68 year old female, well nourished, well hydrated in no acute distress. The patient is oriented to time, place, and person. VITALS: Ht: 5'3 Wt: 192# Head ? Normocephalic. EOM intact with sclera clear and no icterus noted. Mouth with mucus membranes moist. Neck - supple with no jugular venous distention noted. Trachea is midline. No masses noted. Lungs ? clear to auscultation. Normal breath sounds. No rales/rhonchi/wheezing noted. No labored breathing noted, such as retractions. No cough heard. Heart ? normal S1 and S2 auscultated. No rubs/clicks/murmurs noted. Regular rate. Abdomen ? soft and benign. Normal bowel sounds. Healed incisional sites, hernia noted upper abdomen, patient with rectus diastasis. No abdominal bruits noted. Extremities ? no calf tenderness noted. No pitting edema noted. Skin ? normal skin integrity. Neurological ? gait normal, no focal deficits noted Psych ? calm and appropriatete Assessment IMPRESSION: diarrhea/fecal urgency, lower abdominal pain, history of colon cancer PLAN: I have discussed the above with the patient. I have offered colonoscopy, possible biopsies. She wants to consider other test prior to this. Will evaluated with stool studies. I will contact patient with results. However, if negative, she may have to consider colonoscopy, she understands. I have explained the procedure to the patient. I have counseled the patient as to the risks of the procedure, including but not limited to: infection, bleeding, perforation of the GI tract, injury to any intraabdominal organs such as the liver/spleen, inability to complete the procedure, complications of anesthesia, etc. ? the patient understands. The patient agrees with above plan. I have answered all questions to the patient?s satisfaction and the patient has no further questions. . Diagnoses: (R19.7) Diarrhea, unspecified type (primary encounter diagnosis) (Z85.038) History of colon cancer, stage II Return to Clinic: The patient is instructed to follow-up with me as per needed as above. I have confirmed and edited as necessary, the PFSH and ROS obtained by others. Allyson Rosales MD Referring Provider: IRWIN PIÑA [[id number]] Allergies As of Date: 12/06/2018 Noted Allergy Reaction BEES 05/18/2010 12 - Shortness of Breath CODEINE 01/27/2009 Date Reviewed: 12/06/2018 Reviewed by: Yao Pinzon LPN - Fully Assessed Reason for Visit: Consult [173] Cmt: Abd pain Primary Visit Diagnosis:Diarrhea, unspecified type [R19.7] Other Visit Diagnosis:History of colon cancer, stage II [Z85.038] Order(s):OVA + PARA MICROSCOPIC [SQOVAP] Order #: [id number] FUTURE STOOL CULTURE/EIA [SQSTOCUL] Order #: [id number] FUTURE Prescriptions as of 12/06/2018 Sig: METFORMIN 500 MG TABLET Take 500 mg by mouth twice da* PROBIOTIC (S.BOULARDII) ORAL Take by mouth. TIZANIDINE 4 MG CAPSULE Take 4 mg by mouth three time* AMITRIPTYLINE 25 MG TABLET Take 25 mg by mouth daily at * OXYCODONE 5 MG CAPSULE Take 5 mg by mouth every 4 ho* OMEPRAZOLE 10 MG CAPSULE,TRAY* Take 40 mg by mouth once finesse* * LIDOCAINE 5 % TOPICAL PATCH Apply as directed. apply as * * ZOLPIDEM 10 MG TABLET Take by mouth at bedtime as * LEVOTHYROXINE 75 MCG TABLET Problem List As Of Date 12/06/2018 Noted Resolved ENTHESOPATHY OF HIP [M76.899] INVALID FOR* Other Pain Disorders Related to Psychological F*INVALID FOR* Adj React-Emotion NEC [F43.29] INVALID FOR* Insomnia [G47.00] INVALID FOR* More... History of colon cancer, stage II [Z85.038] INVALID FOR* Encounter Status:Closed by MD ALLYSON ROSALES on 12/09/18 [facility] PROGRESSon 12-06-2018 PROGRESS HNO ID: [id number] Author: Allyson Rosales Service: ? Author Type: Physician Type: Progress Notes Filed: 12/09/2018 10:18 AM Note Text: Kerwin Vick 1950 REFERRING PHYSICIAN: Irwin Piña, * CHIEF COMPLAINT: Consult (Abd pain) HPI: The patient is a 68 year old female presents with lower abdominal crampy pain She is status post laparoscopic extended right hemicolectomy in October 2013. Stage II right colon cancer. Surgery complicated by postoperative abscess at the anastomotic site, no leak noted. She also had c. diff colitis. This resulted in prolonged recovery from surgery. Is noted to have a ventral incisional hernia. CEA 11/29/18 - normal She presents with complaint of lower abdominal crampy discomfort mostly after eating fast food and also with fecal urgency and an episode of loose stools. Denies multiple episode of bowel movements per day, usually 1-2 bowel movements per day. Denies blood in stools. This has been going on for a few weeks. Does think that at one point, she had a chicken salad that was suspect for food poisoning. Denies recently taking any antibiotics. Denies weight loss, has had slow weight gain over the years. PAST MEDICAL HISTORY Diagnosis Date - Arachnoiditis 2006 - Blood dyscrasia - Borderline diabetes Using Metformin - Colon cancer (HCC) 2013 - Diabetes (HCC) - Glaucoma - Mental disorder - Pupils of different size following accident - rock hit left eye in 2006 - Snoring hypothyroidism PAST SURGICAL HISTORY Procedure Laterality Date - COLONOSCOP W/ OR W/O [facility] SPEC 11/07/2016 Colonoscopy - LX PARTIAL COLECTOMY 2013 - NONE - PARTIAL HIP REPLACEMENT Right 11/28/2017 Current Outpatient Medications: metFORMIN (GLUCOPHAGE) 500 mg tablet Take 500 mg by mouth twice daily with meals. SACCHAROMYCES BOULARDII (PROBIOTIC, S.BOULARDII, ORAL) Take by mouth. tiZANidine HCl (ZANAFLEX) 4 mg capsule Take 4 mg by mouth three times daily. amitriptyline (ELAVIL) 25 mg tablet Take 25 mg by mouth daily at bedtime. oxyCODONE ir (OXYIR) 5 mg capsule Take 5 mg by mouth every 4 hours as needed. omeprazole (PRILOSEC) 10 mg ORAL capsule Take 40 mg by mouth once daily. lidocaine 5 %(700 mg/patch) TOPICAL Apply as directed. apply as directed, 12 hours on, then 12 hours off zolpidem (AMBIEN) 10 mg ORAL Tab Take by mouth at bedtime as needed. levothyroxine (SYNTHROID) 75 mcg tablet ALLERGIES: Bees; Codeine PERSONAL HISTORY: Social History Socioeconomic History Marital status: Single Spouse name: Not on file Number of children: 2 Tobacco Use Smoking status: Never Smoker Alcohol use: No Drug use: No FAMILY HISTORY Problem Relation Age of Onset - Heart Mother CO @ 40 - Psychiatry Father - other (parkinsons) Sister - Psychiatry Sister schizophrenia - Psychiatry Brother schizophrenia - Psychiatry Brother depression, comitted suicide REVIEW OF SYSTEMS: General - denies fevers, slow weight gain over years Cardiovascular - denies chest pain, denies history of heart attack Pulmonary - denies shortness of breath, denies coughing up blood, denies breathing difficulties Gastrointestinal - denies blood in stools, denies abdominal pain, denies swallowing problems, had history of c.diff colitis Neurological - denies numbness/weakness of extremities, denies seizures, denies history of stroke Genitourinary - denies blood in urine, denies burning with urination Hematological - denies spontaneous/prolonged bleeding, denies history of blood transfusions, denies history of deep venous thromboses and/or pulmonary emboli Skin - denies nonhealing skin wounds, denies history of skin cancer Musculoskeletal - has chronic back pain with some sciatica, recent right hip surgery for avascular necrosis Endocrine - has diabetes, has hypothyroidism Psychological ? denies hallucinations, admits to depression ? PHYSICAL EXAMINATION: General: The patient is 68 year old female, well nourished, well hydrated in no acute distress. The patient is oriented to time, place, and person. VITALS: Ht: 5'3 Wt: 192# Head ? Normocephalic. EOM intact with sclera clear and no icterus noted. Mouth with mucus membranes moist. Neck - supple with no jugular venous distention noted. Trachea is midline. No masses noted. Lungs ? clear to auscultation. Normal breath sounds. No rales/rhonchi/wheezing noted. No labored breathing noted, such as retractions. No cough heard. Heart ? normal S1 and S2 auscultated. No rubs/clicks/murmurs noted. Regular rate. Abdomen ? soft and benign. Normal bowel sounds. Healed incisional sites, hernia noted upper abdomen, patient with rectus diastasis. No abdominal bruits noted. Extremities ? no calf tenderness noted. No pitting edema noted. Skin ? normal skin integrity. Neurological ? gait normal, no focal deficits noted Psych ? calm and appropriatete Assessment IMPRESSION: diarrhea/fecal urgency, lower abdominal pain, history of colon cancer PLAN: I have discussed the above with the patient. I have offered colonoscopy, possible biopsies. She wants to consider other test prior to this. Will evaluated with stool studies. I will contact patient with results. However, if negative, she may have to consider colonoscopy, she understands. I have explained the procedure to the patient. I have counseled the patient as to the risks of the procedure, including but not limited to: infection, bleeding, perforation of the GI tract, injury to any intraabdominal organs such as the liver/spleen, inability to complete the procedure, complications of anesthesia, etc. ? the patient understands. The patient agrees with above plan. I have answered all questions to the patient?s satisfaction and the patient has no further questions. . Diagnoses: (R19.7) Diarrhea, unspecified type (primary encounter diagnosis) (Z85.038) History of colon cancer, stage II Return to Clinic: The patient is instructed to follow-up with me as per needed as above. I have confirmed and edited as necessary, the PFSH and ROS obtained by others. Allyson Rosales MD Normal [facility] Summary Purpose Family History No Family History Records Found Advance Directives No Advanced Directives Records Found Additional Source Comments INFORMATION SOURCE (unrecogn ized section and content) DATE CREATED AUTHOR 11/24/2019 [facility] FOR RECORDS PERTAINING TO PATIENTS WHO ARE OR HAVE BEEN ENROLLED IN A CHEMICAL DEPENDENCY/SUBSTANCEABUSE PROGRAM, SOME INFORMATION MAY BE OMITTED. This clinical summary was aggregated from multiple sources. Caution should be exercised in using it in the provision of clinical care. This summary normalizes information from multiple sources, and as a consequence, information in this document may materially change the coding, format and clinical context of patient data. In addition, data may be omitted in some cases. CLINICAL DECISIONS SHOULD BE BASED ON THE PRIMARY CLINICAL RECORDS. [employer] provides no warranty or guarantee of the accuracy or completeness of information in this document.
== END | disposition home or self-care (01) ==
LOC: MTRAD 09:54
PROVIDERS: PCP Family Medicine; Referring Provider Family Medicine; Visit Provider Family Medicine
DX: M25.559 Pain in unspecified hip (principal)
CPT/HCPCS: 73502

== ENCOUNTER → 2024-05-02 | Outpatient (CLI) | payer MEDICARE, MEDICAID, SELFPAY ==
--- NOTE | 2024-05-02 10:19 | MRI_ITS ---
STUDY: MRI LUMBAR SPINE WITHOUT CONTRAST REASON FOR EXAM: Female, 73 years old. RADICULOPATHY INTO L LEG TECHNIQUE: Standardized fat and water weighted pulse sequences were obtained in the sagittal and axial planes. COMPARISON: CT of abdomen and pelvis dated November 11, 2019. FINDINGS: Normal lumbar lordosis. There is no substantial scoliosis. Normal conus medullaris that terminates at the T12-L1 level. T12-L1: Normal endplates. Normal disc height, hydration and morphology. Normal bilateral facet joints. Normal central canal and bilateral lateral recesses. Normal bilateral intervertebral neural foramina. L1-2: Moderate disc space narrowing with diffuse disc bulge/spur complex. Several anterior and central Schmorl''s nodes are present. Mild central canal stenosis. Mild facet joint hypertrophy. Normal bilateral intervertebral neural foramina. L2-3: Diffuse disc desiccation with mild disc space narrowing and slight annular bulging. Small Schmorl''s node. Mild central canal stenosis. Moderate facet joint and ligamenta flava hypertrophy. Mild bilateral foraminal stenosis.. L3-4: Normal endplates. Diffuse disc desiccation with mild posterior disc space narrowing and mild annular bulging. Small Schmorl''s node. Moderate facet joint and ligament of flavum hypertrophy contributing to moderate central canal stenosis and bilateral lateral recess stenosis with nerve root compression. Posterior epidural lipomatosis contributes to central canal stenosis. Mild to moderate bilateral foraminal stenosis with posterior nerve root impingement. L4-5: Diffuse disc desiccation with moderate disc space narrowing. Mild to moderate endplate degenerative changes. Diffuse disc bulge combined with severe facet joint and ligament of flavum hypertrophy causing severe central canal stenosis with flattening of the thecal sac and bilateral lateral recess stenosis. Mild left and moderate right foraminal stenosis with nerve root compression on the right. Anterolisthesis of L4 and L5 of 3 mm. Small Schmorl''s nodes are present. No visualized pars and articularis defect. L5-S1: Normal endplates. Diffuse disc desiccation with mild posterior disc space narrowing and annular bulging combined with moderate facet joint hypertrophy causing bilateral lateral recess stenosis with nerve root compression and mild to moderate central canal stenosis. Mild bilateral foraminal stenosis. Normal visualized sacral ala. Normal visualized paraspinous soft tissue structures. MRI/Spine Lumbar (Routine) IMPRESSION: 1. Multilevel degenerative changes, as described above. 2. Severe central canal stenosis at L4-L5 Electronically Signed: Zbigniew Briseno MD at 14:07 EDT ,
== END | disposition home or self-care (01) ==
LOC: MRI 10:11
PROVIDERS: PCP Family Medicine; Referring Provider Anesthesiology Pain Medicine; Visit Provider Anesthesiology Pain Medicine
DX: M54.16 Radiculopathy, lumbar region (principal)
CPT/HCPCS: 72148

== ENCOUNTER → 2024-08-07 | Outpatient (CLI) | payer MEDICARE, MEDICAID, SELFPAY ==
[2024-08-07 10:21] LABS: Absolute Lymphocyte Count 2.54 X10^3/uL (0.83-4.51); Absolute Neutrophil Count 3.2 X10^3/uL (2.0-7.7); Basophil# 0.04 X10^3/uL; Basophil% 0.6 % (0-1); Eosinophil# 0.09 X10^3/uL; Eosinophils% 1.4 % (0-5); Hematocrit 38.8 % (37-47); Hemoglobin 12.6 g/dL (12.0-15.0); Lymphocyte # 2.54 X10^3/ul (0.83-4.51); Lymphocyte % 40.2 % (19-41); Mean Corp Hgb Conc 32.5 g/dL (32-36); Mean Corpuscular Hgb 27.9 pg (27.0-32.0); Mean Corpuscular Volume 85.8 fL (81-99); Mean Platelet Vol. 11.5 fl (6.2-12.0); Monocyte# 0.44 X10^3/uL; NRBC Flagged by Analyzer 0 % (0-5); Neutrophil # 3.18 X10^3/uL (2.7-7.7); Neutrophil % 50.3 % (47-70); POSITIVE COUNT YES; RBC Distribution Width SD 46.6 fl (35.1-43.9); Red Blood Count 4.52 M/mm3 (4.2-5.4); White Blood Count 6.3 K/mm3 (4.4-11.0)
[2024-08-07 10:46] LABS: PTHIN 84.3 pg/mL (18.4-80.1)
[2024-08-07 10:49] LABS: Vitamin D,25 Hydroxy 74.8 ng/mL
[2024-08-07 11:02] LABS: ALB/GLOB Ratio 0.8 RATIO (0.9-2.4); AST(SGOT) 54 U/L (15-37); Alanine Aminotransfer ALT/SGPT 45 U/L (13-56); Albumin, Serum 3.3 g/dL (3.2-5.0); Alkaline Phosphatase 108 U/L (45-117); Anion Gap 10 (5-15); BUN 10 mg/dL (7-18); BUN/Creat Ratio 10.5 RATIO (10-20); Calcium,Total 9.3 mg/dL (8.5-10.1); Chloride 104 mmol/L (98-107); Cholesterol 117 mg/dL (200); Creatinine, Serum 0.96 mg/dL (0.55-1.02); EST Glomerular Filtration Rate 61 mL/min (>60); Est Glom Filt Rate - Afr Amer 73 mL/min (>60); Globulin 3.9 g/dL (2.2-4.2); Glucose 197 mg/dL (74-106); High Density Lipoprotein 40 mg/dL; Iron 44 ug/dL (50-170); Protein, Total 7.2 g/dL (6.4-8.2); Sodium Level 138 mmol/L (136-145); Triglycerides 197 mg/dL; Very Low Density Lipoprotein 39 mg/dL (5-40)
[2024-08-07 11:31] LABS: Differential Indicated SCAN CRITERIA MET
[2024-08-07 12:25] LABS: Platelet Estimate ADEQUATE (ADEQ)
== END | disposition home or self-care (01) ==
LOC: MFPLAB 08:54
PROVIDERS: PCP Family Medicine; Referring Provider Family Medicine; Visit Provider Family Medicine
DX: E11.22 Type 2 diabetes mellitus with diabetic chronic kidney disease (principal); N18.30 Chronic kidney disease, stage 3 unspecified
CPT/HCPCS: 36415; 80053; 80061; 82306; 83540; 83970; 84443; 85025

== ENCOUNTER → 2024-09-03 | Outpatient (CLI) | payer MEDICARE, MEDICAID, SELFPAY ==
[2024-09-03 20:28] LABS: Amphetamine Urine NEGATIVE (<1000 ng/mL); Barbiturate Urine NEGATIVE (< 200 ng/mL); Benzodiazepine Urine NEGATIVE (< 200 ng/mL); Buprenorphine Urine NEGATIVE (< 200 ng/mL); Cocaine Urine NEGATIVE (< 300 ng/mL); Fentanyl, Urine NEGATIVE; Methadone Urine NEGATIVE (< 300 ng/mL); Opiates Urine NEGATIVE (< 300 ng/mL); Oxycodone, Urine NEGATIVE (< 100 ng/mL); PCP Urine NEGATIVE (< 25 ng/mL); THC Urine NEGATIVE (< 50 ng/mL)
== END | disposition home or self-care (01) ==
LOC: LAB 09:36
PROVIDERS: PCP Family Medicine; Referring Provider Anesthesiology Pain Medicine; Visit Provider Anesthesiology Pain Medicine
DX: F11.20 Opioid dependence, uncomplicated (principal)
CPT/HCPCS: 80307

== ENCOUNTER → 2024-11-07 | Outpatient (CLI) | payer MEDICARE, MEDICAID, SELFPAY ==
[2024-11-07 16:31] LABS: Microalbumin,Random Urine < 12.0 mg/L (NO RANGE EST.); Microalbumin:Creatinine Ratio UNABLE TO CALCULATE mg/g CRE
== END | disposition home or self-care (01) ==
PROVIDERS: PCP Family Medicine; Referring Provider Family Medicine; Visit Provider Family Medicine
DX: Z00.00 Encounter for general adult medical examination without abnormal findings (principal)
CPT/HCPCS: 82043; 82570

== ENCOUNTER 2024-11-17 03:40 | Emergency (ER) | payer MEDICARE, MEDICAID, SELFPAY ==
[2024-11-17 03:41] VITALS: BP 170/75; PULSE 96; RESP 20; TEMP 36.9; O2SAT 97; BMI 28.0
--- NOTE | 2024-11-17 04:13 | CT_ITS ---
PROCEDURE: CT CHEST, ABD, PELVIS WO CONT 11/17/2024 REASON FOR EXAM: RIGHT FLANK/RIB PAIN, TRAUMA. TECHNIQUE: Chest, abdomen and pelvis CT without intravenous contrast. Coronal and Sagittal reconstruction series were provided. One or more dose reduction techniques were used (e.g., Automated exposure control, adjustment of the mA and/or kV according to patient size, use of iterative reconstruction technique. RADIATION DOSE SUMMARY: CTDlvol: 28.2 mGy DLP: 2168 mGycm COMPARISON: None. FINDINGS: CT CHEST: Acute mildly displaced fractures in the posterior arches of the right seventh, eighth, ninth and 10th ribs. Acute nondisplaced cortical fractures of the posterior arches of the right 11th and 12th ribs. Mild right pleural effusion. Passive atelectatic airspace disease in the right lower lobe. Soft tissue emphysema of the right chest wall. Normal unenhanced main pulmonary artery and right and left pulmonary arteries. Normal bilateral peripheral pulmonary arteries. Normal thoracic aorta and visualized great vessels. There is no demonstrated aortic aneurysm. Normal heart and pericardium. Normal mediastinum. Normal hilar regions. Normal visualized trachea and bronchi. CT ABDOMEN / PELVIS: Noncontrast technique limits evaluation of the abdominal and pelvic viscera. Chronic parenchymal liver disease. Cholelithiasis without acute cholecystitis. Mild splenomegaly. Anterior abdominal wall hernias containing fat and nonincarcerated segment of the colon. Surgical changes of the colon. Normal extrahepatic biliary system. Normal pancreas. Normal bilateral adrenal glands. Normal size of the right kidney. There is no right renal mass. There are no right renal calculi. There is no right hydronephrosis. Normal visualized right ureter. Normal size of the left kidney. There is no left renal mass. There are no left renal calculi. There is no left hydronephrosis. Normal visualized left ureter. Normal visualized stomach. Normal small intestine. There is no demonstrated peritoneal fluid. Calcified atheromatous plaques of the abdominal aorta. Normal inferior vena cava. Normal retroperitoneum. Normal urinary bladder. There is no pelvic mass lesion or lymphadenopathy. There is no pelvic fluid. Diffuse spondylosis. Unremarkable metallic hardware of the right hip. CT/CT Chest, Abd, Pelvis WO Cont IMPRESSION: 1. Acute mildly displaced fractures in the posterior arches of the right sevent h, eighth, ninth and 10th ribs. 2. Acute nondisplaced cortical fractures of the posterior arches of the right 1 1th and 12th ribs. 3. Mild right pleural effusion. 4. Passive atelectatic airspace disease in the right lower lobe. 5. Soft tissue emphysema of the right chest wall. Reading Location: [place] [id number]
--- NOTE | 2024-11-17 04:21 | EX.ED.GENINJ ---
HPI History of Present Illness Chief Complaint: Fall Informant: patient Narrative Narrative: Patient is a 74-year-old female with history of neuropathy, diabetes mellitus, fibromyalgia, hypertension and C. difficile colitis presenting with right flank pain after a fall 4 days ago. Patient states she was on a stepstool trying to change light bulb when she missed the step and fell backwards. She landed directly on her back. She denies any loss of consciousness or hitting her head. She states that initially she had a lot of pain of her right flank/back area but the following day felt okay. Since then she has had increased pain. She got to the point that she could not tolerate the pain anymore which is of brought her to the emergency room. She notes that she has been using a walker to help with her ambulation. She does feel short of breath with this and it is painful for her to take a deep breath. She is not on any blood thinners. She notes that 2 days ago she tried hydrocodone with no relief of her pain. Is not anything for pain today. Denies any associated numbness or tingling acutely. Denies any new weakness. Notes that 2 days ago she had episode of vomiting and she has had some mild diarrhea recently. No other complaints or concerns reported at this time. [facility] Medical History Wears dentures Wears glasses Depression Anxiety History of steroid therapy Diabetes High cholesterol Back pain Migraine headache Arachnoiditis Gastric reflux Non-smoker Leg cramps History of pain when walking History of irregular heartbeat History of echocardiogram Hypertension Hemorrhoids GERD (gastroesophageal reflux disease) Depression with anxiety Arthritis History of back problems Diabetes Thyroid disease C. difficile colitis Colon cancer Fibromyalgia Chest pain on exertion Dyspnea Weakness generalized Anemia Home Medications ?Medication ?Instructions ?Recorded ?Last Taken ?Type amitriptyline 25 mg tablet 50 mg PO QHS MOOD 10/10/13 11/25/13 22:00 History zolpidem 12.5 mg tablet,extended 10 mg PO QHS PRN PRN Insomnia 10/10/13 11/25/13 22:00 History release,multiphase calcium 600 mg (as 1 ea PO DAILY SUPPLEMENT 10/29/13 11/25/13 07:00 History carbonate)-vitamin D3 10 mcg (400 unit) tablet omeprazole 40 mg capsule,delayed 1 tab PO DAILY GERD 10/29/13 01/21/19 History release ferrous sulfate 325 mg (65 mg 325 mg PO DAILY SUPPLEMENT 11/14/17 Unknown History iron) tablet levothyroxine 75 mcg tablet 75 mcg PO DAILY THYROID 11/14/17 01/11/22 History tramadol 50 mg tablet 50 - 100 mg (1 - 2 x 50 mg) PO Q6H 12/08/17 Unknown Rx PRN PRN Moderate Pain (4-5/10) #28 tabs cholecalciferol (vitamin D3) 125 125 mcg PO DAILY 02/18/20 Unknown History mcg (5,000 unit) capsule empagliflozin 10 mg tablet 25 mg PO DAILY 02/18/20 Unknown History (Jardiance) metformin 500 mg tablet 75 mg PO DAILY DM 02/18/20 Unknown History atorvastatin 80 mg tablet 80 mg PO DAILY 12/07/21 Unknown History denosumab 60 mg/mL subcutaneous 60 mg subcut [id number] 12/07/21 Unknown History syringe (Prolia) dulaglutide 1.5 mg/0.5 mL 1.5 mg subcut QWEEK 12/07/21 Unknown History subcutaneous pen injector (Trulicity) glimepiride 2 mg tablet 4 mg PO DAILY 12/07/21 Unknown History ascorbic acid (vitamin C) 500 mg 500 mg PO DAILY 01/05/22 Unknown History tablet (Vitamin C) multivitamin 1 tab PO DAILY 01/05/22 Unknown History ondansetron 4 mg disintegrating 4 mg PO Q6H PRN nausea and 11/17/24 Unknown Rx tablet vomiting #20 tabs oxycodone 5 mg tablet 5 mg PO Q6H PRN pain 3 days #12 11/17/24 Unknown Rx tabs tizanidine 4 mg tablet 4 mg PO BID 11/17/24 Unknown History Allergy/AdvReac Type Severity Reaction Status Date / Time bee venom protein (honey bee) Allergy Anaphylaxis Verified 11/17/24 03:47 citalopram (From Celexa) AdvReac Severe HEADACHES Verified 11/17/24 03:47 duloxetine (From Cymbalta) AdvReac Severe Insomnia, Verified 11/17/24 03:47 Constipation gabapentin (From Neurontin) AdvReac Severe Visual Verified 11/17/24 03:47 Disturbances mirtazapine (From Remeron) AdvReac Severe AGGITATION Verified 11/17/24 03:47 pregabalin (From Lyrica) AdvReac Severe LEG Verified 11/17/24 03:47 CRAMPS,NIGHTMARES,WT GAIN codeine AdvReac Upset Verified 11/17/24 03:47 Stomach Family History Mother Arthritis Heart disease Sister Parkinsons Myocardial infarction Obesity Surgical History Hx of colonoscopy History of total right hip replacement History of colectomy Social History Smoking Status: Never smoker alcohol intake: never substance use type: does not use ROS ROS ED Constitutional Constitutional ED: Denies chills or fever(s) Cardiovascular Cardiovascular: Denies chest pain Respiratory/Chest Respiratory/Chest: Reports dyspnea Gastrointestinal Gastrointestinal: Reports diarrhea, nausea and vomiting; Denies abdominal pain Musculoskeletal Musculoskeletal: Reports back pain Integumentary Denies Abrasions or rash Neurologic Neurologic: Denies headache(s), paresthesias or weakness Psychiatric Psychiatric: Denies anxiety Hematologic/Lymphatic Hematologic/Lymphatic: Denies easy bleeding or easy bruising EXAM Physical Exam Const Vital Signs: 11/17/24 03:41 11/17/24 03:45 11/17/24 05:18 Temperature 98.5 F Temperature Source Oral Pulse Rate 96 92 Respiratory Rate 20 H 18 Respiratory Effort Normal Short of Breath Respiratory Depth Normal Respiratory Pattern Normal Blood Pressure 170/75 H Blood Pressure Mean 106 Pulse Ox 97 96 Oxygen Delivery Method Room Air Room Air Room Air 11/17/24 06:29 Temperature 98.6 F Temperature Source Pulse Rate 89 Respiratory Rate 18 Respiratory Effort Respiratory Depth Respiratory Pattern Blood Pressure 164/49 H Blood Pressure Mean 87 Pulse Ox 98 Oxygen Delivery Method Positive well nourished and well developed General Appearance ED: well developed and NAD HEENT atraumatic Nose: Negative for septum abnormal Eyes PERRL and EOMs intact bilaterally Neck full ROM General: Negative for tenderness Chest Wall Chest Narrative: No anterior chest wall tenderness. Tenderness palpation along the right lower ribs, posterior aspect with overlying ecchymosis. No crepitus appreciated. Resp normal respiratory effort and clear to auscultation bilaterally Effort and Inspection: pain with movement Auscultation: Negative for rhonchi, wheezes or diminished lung sounds Cardio regular rhythm Rate: regular rate GI non-tender and non-distended GI Narrative: Large but soft ventral abdominal wall hernia present Auscultation: normoactive bowel sounds Palpation: soft Back/Spine Back/Spine Narrative: No midline thoracic or lumbar tenderness. Significant tenderness to the right flank/rib area with overlying bruising. Extremity normal to inspection and full ROM Neuro oriented x3, moves all extremities, no focal motor deficits and no sensory deficits noted Sensorium / Orientation: alert Psych mental status grossly normal and thought process normal Skin Skin Narrative: Ecchymosis noted to the right flank, no hematoma pulsatile mass appreciated MDM MDM MDM Narrative Medical decision making narrative: Patient evaluated for continued right-sided rib pain after a fall that occurred 4 days ago. Patient has tenderness and bruising to her right lower ribs. Differential includes rib fracture, rib contusion, pneumothorax, hemothorax, spinous fracture and liver laceration. Patient given IV morphine as well as Zofran and Lidoderm patch. Given how low the injury is we will obtain CT of the chest as well as abdomen and pelvis for evaluation of traumatic injuries. Will also obtain a CBC and CMP. Lab work largely normal, she has very mild transaminitis but no other acute process. Hemoglobin is normal with normal platelets. CT does show acute mildly displaced fractures of the posterior arches of the right 7th through 10th ribs as well as nondisplaced cortical fractures of the right 11th and 12th ribs. There is a mild right pleural effusion which I presume is traumatic and soft tissue emphysema of the right chest wall but no pneumothorax. Given the extent of her fracture she is offered admission but counseled she will need transfer to a trauma facility given the extent of her injuries. Patient would like to think about it and talk to her family and then decide. She notes she is feeling mildly improved with morphine in the emergency room but continues to have pain with movement. Patient tried to call her daughter. She could not get a hold of anyone. She states at this time she would prefer to go home and try to manage her pain at home. Knows that she can return in be admitted/transferred at that time. Will give dose of oxycodone in the ER and attempt ambulation trial. If she does this will discharge home with course of oxycodone and Zofran. Counseled on using Lidoderm patches and follow-up with her primary care doctor for further pain management. Counseled on using incentive spirometer and risk of pneumonia. Given return precautions including worsening pain, shortness of breath/difficulty breathing or fever. Patient ambulated unassisted and well per nursing staff. Will be discharged home. Lab Data Attestation: I reviewed the patient's lab results. Labs: Laboratory Results - last 24 hr 11/17/24 04:20 WBC 7.2 RBC 4.76 Hgb 13.3 Hct 40.6 MCV 85.3 MCH 27.9 MCHC 32.8 RDW Std Deviation 47.8 H RDW Coeff of Donald 15.6 H Plt Count 126 L MPV 10.1 Immature Gran % (Auto) 0.400 Neut % (Auto) 58.4 Lymph % (Auto) 33.2 Stark % (Auto) 6.1 Eos % (Auto) 1.5 Baso % (Auto) 0.4 Absolute Neuts (auto) 4.2 Absolute Lymphs (auto) 2.38 Nucleated RBC % 0 Sodium 137 Potassium 4.0 Chloride 100 Carbon Dioxide 21.8 Anion Gap 15 BUN 15 Creatinine 0.96 Estim Creat Clear Calc 49.19 L Est GFR (MDRD) Non-Af 61 BUN/Creatinine Ratio 15.3 Glucose 114 H Calcium 9.0 Total Bilirubin 0.66 AST 59 H ALT 38 H Alkaline Phosphatase 107 H Total Protein 7.4 Albumin 4.0 Globulin 3.4 Albumin/Globulin Ratio 1.2 Radiography Diagnostic Testing: Clinical Impression(s) from Imaging Studies Chest/Abdomen/Pelvis CT 11/17/24 04:13 IMPRESSION: 1. Acute mildly displaced fractures in the posterior arches of the right seventh, eighth, ninth and 10th ribs. 2. Acute nondisplaced cortical fractures of the posterior arches of the right 11th and 12th ribs. 3. Mild right pleural effusion. 4. Passive atelectatic airspace disease in the right lower lobe. 5. Soft tissue emphysema of the right chest wall. Reading Location: [place] [address] Discharge Plan Triage Chief Complaint: Fall ED Provider: Makayla Valderrama Dx/Rx/DC Orders Clinical Impression: Multiple fractures of ribs of right side, Fall Instructions: ED Rib Fracture Prescriptions: New oxycodone 5 mg tablet 5 mg PO Q6H PRN (Reason: pain) 3 Days Qty: 12 0RF ondansetron 4 mg tablet,disintegrating 4 mg PO Q6H PRN (Reason: nausea and vomiting) Qty: 20 0RF No Action Jardiance 10 mg tablet 25 mg PO DAILY cholecalciferol (vitamin D3) 125 mcg (5,000 unit) capsule 125 mcg PO DAILY glimepiride 2 mg tablet 4 mg PO DAILY atorvastatin 80 mg tablet 80 mg PO DAILY Prolia 60 mg/mL syringe 60 mg subcut [id number] Trulicity 1.5 mg/0.5 mL pen injector 1.5 mg subcut QWEEK amitriptyline 25 MG tablet 50 mg PO QHS Patient Comments: NERVES zolpidem 12.5 MG tablet,ext release multiphase 10 mg PO QHS PRN PRN (Reason: Insomnia) Patient Comments: SLEEP omeprazole 40 MG capsule,delayed release(DR/EC) 1 tab PO DAILY Patient Comments: STOMACH calcium carbonate-vitamin D3 1 EACH tablet 1 ea PO DAILY Patient Comments: BONE CARE metformin 500 mg tablet 75 mg PO DAILY levothyroxine 75 MCG tablet 75 mcg PO DAILY ferrous sulfate 325 MG tablet 325 mg PO DAILY tramadol 50 MG tablet 50 - 100 mg PO Q6H PRN PRN (Reason: Moderate Pain (4-5/10)) Qty: 28 0RF multivitamin Tablet 1 tab PO DAILY ascorbic acid (vitamin C) [Vitamin C] 500 mg Tablet 500 mg PO DAILY tizanidine 4 mg tablet 4 mg PO BID Primary Care Provider: Sivakumar Berger Referrals: Tony Castro MD [Med Staff - Active Staff] - Sivakumar Berger MD [Primary Care Provider] - Activity Restrictions/Additional Instructions: You have rib fractures on your ribs 7 through 12 which is what caused your pain. Make sure you are using your incentive spirometer throughout the day to prevent a secondary pneumonia. In addition to the oxycodone prescribed today I also recommend taking up to 1000 mg of Tylenol every 8 hours to help with pain and using [id number] Lidoderm patches and other topical pain relievers. Do not take hydrocodone or tramadol with the oxycodone. I do recommend taking a daily stool softener or MiraLAX to help with opioid-induced constipation caused by the pain medication. We did discuss admission/transfer to a trauma facility given your injuries. At this time you would like to go home. If you do not feel safe at home, your pain is worsening or you change your mind please do not hesitate to return to the emergency room. Print Language: Malay
[2024-11-17] MEDS: Ondansetron 4 MG/2 ML Vial IV (04:27)
[2024-11-17] MEDS: Morphine 4 MG/ML Syringe IV (04:28)
[2024-11-17 04:31] LABS: Absolute Lymphocyte Count 2.38 X10^3/uL (0.83-4.51); Absolute Neutrophil Count 4.2 X10^3/uL (2.0-7.7); Basophil# 0.03 X10^3/uL; Basophil% 0.4 % (0-1); Eosinophil# 0.11 X10^3/uL; Eosinophils% 1.5 % (0-5); Hematocrit 40.6 % (37-47); Hemoglobin 13.3 g/dL (12.0-15.0); Lymphocyte # 2.38 X10^3/ul (0.83-4.51); Lymphocyte % 33.2 % (19-41); Mean Corp Hgb Conc 32.8 g/dL (32-36); Mean Corpuscular Hgb 27.9 pg (27.0-32.0); Mean Corpuscular Volume 85.3 fL (81-99); Mean Platelet Vol. 10.1 fl (6.2-12.0); Monocyte# 0.44 X10^3/uL; Monocyte% 6.1 % (0-10); NRBC Flagged by Analyzer 0 % (0-5); Neutrophil # 4.18 X10^3/uL (2.7-7.7); Neutrophil % 58.4 % (47-70); Platelet Count 126 K/mm3 (150-450); RBC Distribution Width CV 15.6 % (11.6-14.6); RBC Distribution Width SD 47.8 fl (35.1-43.9); Red Blood Count 4.76 M/mm3 (4.2-5.4); White Blood Count 7.2 K/mm3 (4.4-11.0)
[2024-11-17 04:54] LABS: ALB/GLOB Ratio 1.2 RATIO (0.9-2.4); AST(SGOT) 59 U/L (<=31); Alanine Aminotransfer ALT/SGPT 38 U/L (<=34); Alkaline Phosphatase 107 U/L (35-104); Anion Gap 15 (5-15); BUN 15 mg/dL (4-19); BUN/Creat Ratio 15.3 RATIO (10-20); Carbon Dioxide 21.8 mmol/L (21.0-32.0); Chloride 100 mmol/L (98-108); Creatinine, Serum 0.96 mg/dL (0.70-1.20); EST Glomerular Filtration Rate 61 (>60); Estimated Creatinine Clearance 49.19 ml/min (50-250); Globulin 3.4 g/dL (2.2-4.2); Glucose 114 mg/dL (70-99); Protein, Total 7.4 g/dL (5.9-8.4); Sodium Level 137 mmol/L (133-145); Total Bilirubin 0.66 mg/dL (0.00-1.30)
[2024-11-17] MEDS: Lidocaine 5% Patch 1 PATCH TOPICAL (05:15)
[2024-11-17 05:18] VITALS: PULSE 92; RESP 18; O2SAT 96
[2024-11-17] MEDS: oxyCODONE 5 MG Tablet PO (06:26)
[2024-11-17 06:29] VITALS: BP 164/49; PULSE 89; RESP 18; TEMP 37; O2SAT 98
== END 2024-11-17 06:45 | disposition home or self-care (01) ==
PROVIDERS: Emergency Provider Emergency Medicine; PCP Family Medicine; Visit Provider Emergency Medicine
DX: S22.41XA Multiple fractures of ribs, right side, initial encounter for closed fracture (principal); E11.40 Type 2 diabetes mellitus with diabetic neuropathy, unspecified; E78.00 Pure hypercholesterolemia, unspecified; T79.7XXA Traumatic subcutaneous emphysema, initial encounter; R10.9 Unspecified abdominal pain; R06.02 Shortness of breath; I10 Essential (primary) hypertension; S20.211A Contusion of right front wall of thorax, initial encounter; J90 Pleural effusion, not elsewhere classified; W08.XXXA Fall from other furniture, initial encounter; R19.7 Diarrhea, unspecified; R11.2 Nausea with vomiting, unspecified
CPT/HCPCS: 71250; 74176; 80053; 85025; 90471; 96374; 96375; 99285; A4216; J2405

== ENCOUNTER → 2025-05-13 | Outpatient (CLI) | payer MEDICARE, MEDICAID, SELFPAY ==
[2025-05-13 09:53] LABS: Hematocrit 40.0 % (37-47); Hemoglobin 13.1 g/dL (12.0-15.0); Mean Corp Hgb Conc 32.8 g/dL (32-36); Mean Corpuscular Volume 86.8 fL (81-99); Mean Platelet Vol. 11.2 fl (6.2-12.0); Platelet Count 104 K/mm3 (150-450); RBC Distribution Width CV 15.0 % (11.6-14.6); RBC Distribution Width SD 46.9 fl (35.1-43.9); Red Blood Count 4.61 M/mm3 (4.2-5.4); White Blood Count 5.7 K/mm3 (4.4-11.0)
[2025-05-13 13:06] LABS: AST(SGOT) 39 U/L (<=31); Alanine Aminotransfer ALT/SGPT 31 U/L (<=34); Albumin, Serum 3.9 g/dL (3.4-4.8); Alkaline Phosphatase 103 U/L (35-104); Anion Gap 13 (5-15); BUN 14 mg/dL (4-19); BUN/Creat Ratio 15.3 RATIO (10-20); Calcium,Total 10.1 mg/dL (7.6-11.0); Carbon Dioxide 22.2 mmol/L (21.0-32.0); Chloride 104 mmol/L (98-108); Cholesterol 133 mg/dL (<=200); Globulin 3.1 g/dL (2.2-4.2); Glucose 178 mg/dL (70-99); Low Density Lipoprotein Calc. 60 mg/dL; Potassium 3.7 mmol/L (3.3-5.1); Triglycerides 197 mg/dL; Very Low Density Lipoprotein 39 mg/dL (5-40); Vitamin D,25 Hydroxy 58.4 ng/mL (30-100); cholesterol:hdl ratio screen 3.28
[2025-05-13 13:10] LABS: PTHIN 31 pg/mL (11-61)
== END | disposition home or self-care (01) ==
LOC: MFPLAB 09:17
PROVIDERS: PCP Family Medicine; Visit Provider Family Medicine
DX: E11.22 Type 2 diabetes mellitus with diabetic chronic kidney disease (principal); E11.69 Type 2 diabetes mellitus with other specified complication; E03.9 Hypothyroidism, unspecified
CPT/HCPCS: 36415; 80053; 80061; 82306; 83970; 84443; 85027